=== PATIENT | female | born 1950 | race Caucasian/White ===

== ENCOUNTER 2019-06-07 11:24 | Emergency (ER) | payer MEDICARE, SELFPAY ==
[2019-06-07 11:34] VITALS: BP 121/65; PULSE 75; RESP 16; TEMP 36.8; O2SAT 97
--- NOTE | 2019-06-07 11:53 | ED.GENADULT ---
HPI - General Adult General Chief complaint: Upper Respiratory Infection Stated complaint: Hoarse voice Time Seen by Provider: 06/07/19 11:53 Source: patient and RN notes reviewed Mode of arrival: ambulatory Limitations: no limitations History of Present Illness HPI narrative: 68-year-old female presents with complaints of upper respiratory infection, hoarseness, facial congestion, facial pain, cough, and fatigue for the past 4 days. Flonase and [id number] decongestant with little relief. Increase symptoms over the last 24 hours with , No facial swelling. Intermittent dry cough. Nasal congestion and rhinorrhea. No chest pain or shortness of breath. No exacerbating factors. Denies fever or chills. Denies nausea, vomiting, and abdominal pain. Tolerating po intake well. Remains active. Shameka denies being , history of a hysterectomy. Some parts of this dictation were generated by voice recognition software and may contain typographical and/or grammatical inaccuracies. Related Data Home Medications Medication Instructions Recorded Confirmed estradiol 1 mg PO DAILY 04/17/19 06/07/19 Allergies Allergy/AdvReac Type Severity Reaction Status Date / Time No Known Allergies Allergy Verified 06/07/19 11:35 Review of Systems Review of Systems: Narrative: CONSTITUTIONAL: Complains of fatigue. Denies fever, chills, sweats. EYES: Denies visual changes, redness, discharge. ENT: Complains of rhinorrhea, congestion, facial congestion, facial pressure, hoarseness. Denies sore throat, otalgia. CARDIOVASCULAR: Denies chest pain, palpitations, edema. RESPIRATORY: Denies dyspnea, wheezing. Complains of intermittent dry cough. GASTROINTESTINAL: Denies abdominal pain, nausea, vomiting, diarrhea. GENITOURINARY: Denies dysuria, hematuria, abnormal discharge. SKIN: Denies rash or itching. MUSCULOSKELETAL: Denies acute back pain, joint pain, or myalgia. NEUROLOGIC: Denies numbness or focal weakness. PSYCHIATRIC: Denies anxiety or depression. All systems reviewed & are unremarkable except as noted in HPI and below. 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 Surgical History Surgical History H/O: hysterectomy History of appendectomy History of bowel resection History of laminectomy History of sinus surgery Family History Family History Mother Family history of osteoporosis Patient's mother is in good health Father Family history of alcoholism Family history of cardiomyopathy Family history of diabetes mellitus in first degree relative Patient's father is Social History Social History (Updated 06/07/19 @ 12:36 by MARIYA Godinez) Smoking status: Never smoker Second hand tobacco smoke exposure: No Alcohol intake: current Substance use: never Living arrangements: with family Occupation/Education: retired Gender identity (if verbalized by the patient): Female Comments At time of signature, agree with nurse past medical, surgical, social, and family history. There is no relevant family history pertinent to the presenting complaint. Exam Narrative: Exam Narrative: GENERAL: This is a well-nourished, well-developed patient, in no apparent distress. Talks in full sentences with hoarseness voice and ambulates with steady gait without dyspnea. HEAD: normocephalic, atraumatic. EYES: PERRL. Sclera clear/white. Vision is grossly intact. EARS: External ears normal, auditory canals clear and without drainage, TMs normal without perforation. Hearing grossly intact. NOSE: External nose normal with no obvious nasal discharge, nares with mild redness and enlarged turbinates, clear rhinorrhea. SINUSES: M
== END 2019-06-07 12:16 | disposition home or self-care (01) ==
PROVIDERS: Emergency Provider Nurse Practitioner Family
DX: J00 Acute nasopharyngitis [common cold] (principal); J01.90 Acute sinusitis, unspecified; J04.0 Acute laryngitis; M19.90 Unspecified osteoarthritis, unspecified site
CPT/HCPCS: 99211; G0463

== ENCOUNTER 2021-01-22 12:55 | Outpatient (CLI) | payer MEDICARE, SELFPAY | END 2021-01-22 12:56 | disposition home or self-care (01) | LOC: ANHAUDASC 12:56 | PROVIDERS: PCP Family Medicine; Visit Provider Otolaryngology | DX: H69.83 Other specified disorders of Eustachian tube, bilateral (principal); H90.3 Sensorineural hearing loss, bilateral | CPT/HCPCS: 92557; 92567 ==

== ENCOUNTER 2021-04-10 08:29 | Outpatient (CLI) | payer MEDICARE, SELFPAY ==
--- NOTE | 2021-04-10 08:33 | ECG_ITS ---
Measurements Intervals [place] Rate: 65 P: 48 ND: 155 QRS: -13 QRSD: 84 T: 77 QT: 385 QTc: 402 Interpretive Statements SINUS RHYTHM VENTRICULAR PREMATURE COMPLEX POOR R WAVE PROGRESSION, CONSIDER ANTERIOR INFARCT INFERIOR INFARCT, AGE INDETERMINATE BORDERLINE ST-T WAVE ABNORMALITY- HIGH LATERAL LEADS ABNORMAL ECG Electronically Signed On 04-10-2021 9:29:30 WAFER MACHINE OPERATOR by Conor Chance D.O.
== END 2021-04-10 08:30 | disposition home or self-care (01) ==
LOC: ANHSURGERY 08:33
PROVIDERS: PCP Family Medicine; Visit Provider Podiatrist Foot & Ankle Surgery
DX: E78.00 Pure hypercholesterolemia, unspecified (principal); Z01.818 Encounter for other preprocedural examination; R94.31 Abnormal electrocardiogram [ECG] [EKG]
CPT/HCPCS: 93005

== ENCOUNTER 2021-04-11 00:15 | Day surgery (SDC) | payer MEDICARE, SELFPAY ==
[2021-04-08 15:03] VITALS: BMI 25.7
--- NOTE | 2021-04-08 15:30 | PC.NURSE ---
Report to the Outpatient Waiting Room, entrance under the green pavilion located off [facility], at time __7:00AM on date _04/11/21____. OR Time: __9:00AM . - You and your visitor will be asked a series of questions to screen for COVID 19 for your protection. - A mask is required within the hospital. - Only one visitor is allowed at this time. Patient visitors will be guided where to wait when not with patient. Preoperative COVID Testing Requirements: No COVID Test needed if: (proof is required; if not received patient will have Rapid Test prior to entry) - Patient has received COVID Vaccine at least 14 days prior to procedure date or - Patient has positive COVID test result within last 90 days of surgery date. COVID Test needed if above criteria is not met If not COVID vaccinated a COVID test must be conducted within 72 hours of surgery and patient is asked to isolate self from time of testing until procedure. You will go to the [employer] [facility] Testing Site for your COVID testing. The [employer] [facility] Testing site is located at the corner of [address] [facility]. You will only be called if COVID results are positive and your surgeon may reschedule your elective surgery date. Patients may have clear liquids (water, carbonated beverages, clear teas, apple juice) until 3 hours prior to surgery with a maximum of 20 ounces. - No food from midnight until time of surgery - Infants may have breast milk until 4 hours before surgery, formula 6 hours prior to surgery. - Children will be allowed to drink immediately following surgery. If applicable, please bring a bottle or sippy cup to assist with drinking. Juice, water, soda, and popsicles are readily available. For infants on formula, please bring formula the day of surgery. Pacifiers are allowed. Take the following medications with a SIP of water the morning of surgery: ___ALPRAZOLAM NEEDED Medications to discontinue per physician NONE Date to take last dose Please no make-up, nail lao, hairspray, perfume, deodorant, or body powder the day of surgery. No jewelry (including any body piercings) or valuables the day of surgery, leave them at home. Please take a shower or bath the night before, or the morning of, surgery with an antibacterial soap. Wear comfortable, loose fitting clothing. Children are encouraged to wear pajamas. - Jewelry must be removed prior to entering the operating room. Rings and piercings that are not removed may be cut off. - The hospital will not accept responsibility for valuables. - Please leave all valuables, including medications, at home the day of surgery. If you are going home after surgery, a licensed [facility] driver must drive you home. - NO public transportation without another adult. - We recommend that an adult stay with you for 24 hours following discharge. - We also recommend that you do not drive, make important decision, drink alcoholic beverages, or take any drugs that were not prescribed by your health care provider for at least 24 hours after your discharge time. For Pediatric surgeries, we recommend two adults accompany the child home (only one inside the building at this time). Follow any additional instructions given to you from your surgeon. Telephone instructions given to __PATIENT and asked if any additional questions and then verbalized understanding. Patient advised to call surgeon office or pre surgery nurse liaison [phone] if any additional questions.
[2021-04-11] VITALS (9 sets, daily range): BP systolic 87–134; BP diastolic 53–75; PULSE 56–79; RESP 11–18; TEMP 36.1–37.2; O2SAT 98–100
--- NOTE | ~2021-04-11 | XR_ITS ---
EXAMINATION: XR surgery orthopedic DATE: 04/11/2021 09:28 INDICATION: Right foot arthrodesis TECHNIQUE: Dorsal plantar and lateral fluoroscopic images of the right forefoot were obtained during procedure performed by Dr. Suero. Radiologist was not present for the imaging or procedure. The am ount of fluoroscopy time used during this procedure was 0.1 minutes. COMPARISON: None. FINDINGS: First metatarsophalangeal arthrodesis with dorsal plate and screw fixation which is in near -anatomic alignment. No fracture. Remaining profiled joint spaces in the forefoot are unremarkable. E xpected small amount of gas in the soft tissues at the operative bed. IMPRESSION: 1. Expected appearance during right first metatarsophalangeal arthrodesis with dorsal plate and screw fixation. Reviewed, dictated and finalized at location A. REPAIRER
--- NOTE | 2021-04-11 07:00 | P.PNAN_ITS ---
Anes - Eval Pre Procedure Procedure: Operation Date: 04/11/21 09:00 Proposed Procedures p Arthrodesis of First Metatarsal Phalangeal Joint Right Foot - Tayo Suero JR, MD Date/Time: 04/11/21 07:00 Pre Op Diagnosis: arthritis 1st mpj right foot Patient Data Age: 70 Gender: F Height: 1.63 m Weight: 68 kg Allergies Allergy/AdvReac Type Severity Reaction Status Date / Time No Known Allergies Allergy Verified 04/08/21 15:00 Home Medications Medication Instructions Recorded Confirmed Type estradiol 0.5 mg PO DAILY 04/17/19 04/08/21 History alprazolam 0.25 mg tablet 0.25 mg PO DAILY PRN 05/27/20 04/08/21 History cholecalciferol (vitamin D3) 50 50 mcg PO DAILY 11/28/20 04/08/21 History mcg (2,000 unit) capsule Patient hx anesthesia problems: none Family hx anesthesia problems: none Results Review: All pre-operative results and documents have been reviewed as part of the pre-operative evaluation. [facility] Past Medical History Medical History Acute upper respiratory infection Arthritis Back pain Diverticulitis History of benign meningioma of brain Otitis media Subungual malignant melanoma Surgical History Surgical History H/O: hysterectomy History of appendectomy History of bowel resection History of laminectomy History of sinus surgery Family History Family History Mother Family history of osteoporosis Patient's mother is in good health Father Family history of alcoholism Family history of cardiomyopathy Family history of diabetes mellitus in first degree relative Patient's father is Social History Social History Second hand tobacco smoke exposure: No Alcohol intake: current Drinks per week: 3 Substance use: never Living arrangements: with family Additional living arrangements comments: GABY Gender identity (if verbalized by the patient): Female Spiritual care concerns: No Exam Day of Procedure 04/11/21 07:00 Patient weight: overweight
--- NOTE | 2021-04-11 07:11 | WPDANESEFPP ---
Anes - Eval Final PreProcedure Day of Procedure 04/11/21 07:11 Patient weight: overweight Heart: regular rate and rhythm Lungs: clear to auscultation Airway: Mallampati scale class II Neurological: alert and oriented Last oral intake: >/= 8 hours ASA classification: II Emergent: no Anesthetic plan: proceed Anesthesia type and monitoring: general LMA and standard monitoring Results Review: All pre-operative results and documents have been reviewed as part of the pre-operative evaluation. Informed Consent: The patient's anesthetic plan and its attendant risks and benefits were discussed with the patient/family/POA. Questions were solicited and answers provided to the satisfaction of the patient/family/POA.
--- NOTE | 2021-04-11 07:19 | WPDHPUPDATE1 ---
History and Physical Update Update Date/Time: 04/11/21 07:19 History and Physical has been reviewed, including an updated exam of the patient. There are NO changes in the patient's condition. Risks, benefits, and alternatives have been discussed and questions answered. Patient agrees to proceed with procedure.
[2021-04-11] MEDS: LACTATED RINGERS 1,000 ML 30 ML IV CONT (07:49)
[2021-04-11] MEDS: ceFAZolin 2 GM/D5W 50 ML 2 GM/50 ML BAG IVPB (08:24)
[2021-04-11] MEDS: ONDANSETRON INJ 4 MG/2 ML VIAL IV PUSH (09:44)
--- NOTE | 2021-04-11 09:44 | WPDANESPNB ---
Anes - Peripheral Nerve Block Date/Time: 04/11/21 09:44 I have discussed with the patient/family/POA the placement of a peripheral nerve block for post-operative pain management, including associated risks, benefits, complications, and side effects. Alternative methods of post-operative analgesia were detailed. Questions were solicited and answers provided to the satisfaction of the patient/family/POA. Time-Out: A pre-procedural Time-Out was completed immediately before starting the procedure and confirmed: Patient Identification, Site, Procedure, Patient Position and the Availability of Requisite Equipment. Clinical Indications: Acute post-operative pain management requested by the operative surgeon. Nerve Block Insertion Note Anes-nerve block: posterior fossa sciatic right and other (saphenous) Patient position: supine Skin prep: chlorhexidine Needle: 22 gauge, stimulating, insulated echogenic needle. Needle length: 80 mm Technique: nerve stimulation lost at (mA) (0.35) Injectate: bupivacaine 0.5% with epi 5 mcg/ml (no epi, 23 cc sciatic and 7 cc saphenous) Observations: tolerated well Complications: none Procedure start time:: 814 Procedure end time:: 820
[2021-04-11] MEDS: fentaNYL CITRATE INJ (*CRX) 100 MCG/2 ML VIAL 25 MCG IV PUSH ×5 (09:50→10:45)
--- NOTE | 2021-04-11 09:58 | W.PM.PROC2 ---
Procedure Note - Detailed Date of Procedure 04/11/21 Pre-op Diagnosis Arthritis 1st mpj right foot Post-op Diagnosis same Procedure Performed Arthrodesis of the first metatarsal phalangeal joint right foot Surgeon Tayo Suero JR, AVANI Anesthesia general and regional Indications Right forefoot pain Description of Procedure PROCEDURE IN DETAIL: Under mild sedation, the patient was brought into the operating room, placed on the operating table in supine position. A pneumatic ankle tourniquet was placed about the patient's ipsilateral ankle. Following general anesthesia and a previous popliteal fossa block,the foot was then scrubbed, prepped, and draped in the usual aseptic manner. An Esmarch bandage was then used to exsanguinate the patient's foot and the pneumatic ankle tourniquet was then inflated. Surgery began in the following manner: Attention was directed to the dorsal aspect of the 1st metatarsophalangeal joint where there was a large subcutaneous prominence noted along the dorsomedial aspect of the joint. The incision was made starting along the central shaft of the 1st metatarsal and extending just proximal to the interphalangeal joint of the hallux. The incision was continued deep down through the subcutaneous tissues using sharp and blunt dissection. All bleeders were cauterized as necessary. At this point, the dissection was continued down to the level of the periosteum and capsular structures overlying the 1st metatarsophalangeal joint. A full length periosteum and capsular incision was made just medial to the extensor hallucis longus tendon. The periosteum and capsular structures were freed from the base of the proximal phalanx as well as the distal 1st metatarsal. At this point, the 1st metatarsophalangeal joint was identified. There was almost complete loss of articular cartilage to the head of the 1st metatarsal as well as the base of the proximal phalanx. There was significant broadening and hypertrophy of the 1st metatarsophalangeal joint with several loose bodies present. Utilizing a sagittal bone saw, the hypertrophied 1st metatarsal was resected dorsally, medially, and laterally. A power bur was used to make sure that there were no rough edges and also to further debride the hypertrophic 1st metatarsal. Next, a rongeur was used to resect all hypertrophic base of the proximal phalanx. At this point, the reamer system for the [employer] system was used to denude the degenerative cartilage from the head of the 1st metatarsal as well as the base of the proximal phalanx. The cartilage and subchondral bone were fully debrided utilizing the reamer system until healthy bleeding bone was noted. Next, a 2-0 drill bit was used to further fenestrate the head of the 1st metatarsal as well as the base of the proximal phalanx in order to allow fusion across the 1st metatarsophalangeal joint. Next, a 0.045 inch K-wire was driven from the medial aspect of the base of the proximal phalanx into the head of the 1st metatarsal in order to serve as temporary fixation. A large steel plate was used to make sure that the hallux was in a rectus position both in the sagittal plane as well as the frontal and transverse plane. Excellent position of the hallux was noted. Next, a CrossCHECK plate was placed atop the 1st metatarsophalangeal joint held in position with [place] wires. Utilizing standard principles and techniques, the 2 distal drill holes were drilled and two 2.7mm mm fully-threaded locking screws were driven from dorsal to plantar holding the distal aspect of the plate intact. At this point, a 3.5mm lag screw was driven from dorsal distal to proximal plantar across the 1st metatarsophalangeal joint through the plate system with excellent compression noted after careful removal of the olive wire and temporary fixation from the 1st metatarsophalangeal joint. Next, 2 proximal drill holes were drilled from dorsal t
[2021-04-11] MEDS: oxyCODONE HCL (*CRX) 5 MG TAB IR PO (11:27)
== END 2021-04-11 12:06 | disposition home or self-care (01) ==
PROVIDERS: PCP Family Medicine; Visit Provider Podiatrist Foot & Ankle Surgery
PROC: (CPT 28750; principal; 2021-04-11 09:00)
DX: M19.071 Primary osteoarthritis, right ankle and foot (principal); M20.21 Hallux rigidus, right foot; G89.18 Other acute postprocedural pain; K57.92 Diverticulitis of intestine, part unspecified, without perforation or abscess without bleeding
CPT/HCPCS: 28750; 64450; 64445; 93005; A9270; C1713; J0690; J2250; J2370; J2405; J2704; J3010; J7120

== ENCOUNTER 2021-07-27 13:28 | Emergency (ER) | payer MEDICARE, SELFPAY ==
[2021-07-27 13:38] VITALS: BP 107/55; PULSE 63; RESP 16; TEMP 35.6; O2SAT 100
--- NOTE | 2021-07-27 13:39 | ED.URI ---
HPI - URI/Sore Throat General Chief Complaint: Upper Respiratory Infection Stated Complaint: Sinus Infection Time Seen by Provider: 07/27/21 13:40 Source: patient, family, RN notes reviewed and old records reviewed Mode of arrival: ambulatory Limitations: no limitations History of Present Illness HPI Narrative: 70-year-old female presents to the [facility] with complaints of sinus pain, pressure, ear pressure for at least 3 days. No treatment prior to arrival. Patient states she has a history of chronic sinus issues. Denies fevers. Denies sore throat, chest pain, abdominal pain. MD elicited complaint: nasal congestion and sinus pain Related Data Home Medications Medication Instructions Recorded Confirmed estradiol 0.5 mg PO DAILY 04/17/19 07/27/21 alprazolam 0.25 mg tablet 0.25 mg PO DAILY PRN 05/27/20 07/27/21 cholecalciferol (vitamin D3) 50 50 mcg PO DAILY 11/28/20 07/27/21 mcg (2,000 unit) capsule ezetimibe 10 mg PO DAILY 07/27/21 07/27/21 Allergies Allergy/AdvReac Type Severity Reaction Status Date / Time No Known Allergies Allergy Verified 07/27/21 13:36 Review of Systems Review of Systems: All systems reviewed & are unremarkable except as noted in HPI and below Constitutional: Constitutional: Reports no additional constitutional complaints, Denies chills, Denies fever(s) and Denies headache(s) Eyes: Eyes: Reports no additional eye complaints ENT: Reports as per HPI, Denies vertigo, Denies dizziness, Reports otalgia, Denies headache(s), Denies lip swelling, Reports nasal congestion, Reports nasal discharge, Reports post nasal drip, Reports sinus pain, Reports sinus pressure, Denies sore throat and Denies throat swelling Cardiovascular: Cardiovascular: Reports no additional cardiovascular complaints, Denies chest pain, Denies syncope, Denies rapid heart rate and Denies dyspnea Respiratory: Respiratory: Reports no additional respiratory complaints, Denies cough, Denies dyspnea and Denies wheezing Gastrointestinal: Gastrointestinal: Reports no additional gastrointestinal complaints, Denies abdominal pain, Denies diarrhea, Denies nausea and Denies vomiting Musculoskeletal: Musculoskeletal: Reports no additional musculoskeletal complaints and Denies numbness Integumentary/Breasts: Skin/Breast: Reports system reviewed and no additional complaints, except as docu Neurologic: Reports system reviewed and no additional complaints, except as documented, Denies vertigo, Denies dizziness, Denies syncope, Denies headache(s), Denies focal weakness and Denies numbness Psychiatric: Psychiatric: Reports no additional psychiatric complaints, Denies as per HPI, Denies anxiety, Denies depression, Denies homicidal ideation and Denies suicidal ideation Allergic/Immunologic: Allergic/Immunologic: Reports no additional allergic/immunologic complaints PMFSH Past Medical History Medical History Acute upper respiratory infection Arthritis Back pain Diverticulitis History of benign meningioma of brain Otitis media Subungual malignant melanoma Surgical History Surgical History H/O: hysterectomy History of appendectomy History of bowel resection History of laminectomy History of sinus surgery Family History Family History Mother Family history of osteoporosis Patient's mother is in good health Father Family history of alcoholism Family history of cardiomyopathy Family history of diabetes mellitus in first degree relative Patient's father is Social History Social History Second hand tobacco smoke exposure: No Alcohol intake: current Drinks per week: 3 Substance use: never Additional living arrangements comments: GABY Gender identity (if verbalized by the patient): Female
== END 2021-07-27 14:00 | disposition home or self-care (01) ==
PROVIDERS: Emergency Provider Nurse Practitioner; PCP Family Medicine
DX: J32.9 Chronic sinusitis, unspecified (principal)
CPT/HCPCS: 99213; G0463

== ENCOUNTER 2022-09-11 06:17 | Day surgery (SDC) | payer MEDICARE, SELFPAY ==
[2022-09-01 14:35] VITALS: BMI 24.9
[2022-09-04 08:35] VITALS: BMI 25.7
--- NOTE | ~2022-09-11 | XR_ITS ---
EXAMINATION: XR surgery orthopedic DATE: 09/11/2022 7:30 CDT INDICATION: RIGHT FOOT HARDWARE REMOVAL . TECHNIQUE: 1 fluoroscopic image of the right foot were obtained during right hip hardware removal per formed by the surgeon. I was not present in the operating room. Fluoroscopy exposure time was 9 secon ds. Dose 35.52 mrad. COMPARISON: 04/11/2021 FINDINGS: Interval hardware removal. No radiopaque foreign body. IMPRESSION: Fluoroscopic documentation of right foot hardware removal. Please refer to the operative note for com plete procedural details . Reviewed, dictated and finalized at location K. IMPRESSION: Fluoroscopic documentation of right foot hardware removal. Please refer to the operative note for complete procedural details .
[2022-09-11 06:43] VITALS: BP 101/61; PULSE 78; RESP 18; TEMP 37.1; O2SAT 99
[2022-09-11] MEDS: LACTATED RINGERS 1,000 ML 30 ML IV CONT (07:05)
--- NOTE | 2022-09-11 07:08 | WPDHPUPDATE1 ---
History and Physical Update Update Date/Time: 09/11/22 07:08 History and Physical has been reviewed, including an updated exam of the patient. There are NO changes in the patient's condition. Risks, benefits, and alternatives have been discussed and questions answered. Patient agrees to proceed with procedure.
--- NOTE | 2022-09-11 07:22 | WPDANESEPPF ---
Anes - Initial Pre Proc Eval Procedure: Operation Date: 09/11/22 07:40 Proposed Procedures p Removal of Deep Orthopedic Hardware Right Foot - Tayo Suero JR, MD Date/Time: 09/11/22 07:22 Surgeon: Tayo Suero JR, MD Pre Op Diagnosis: Painfull orthopedic hardware right foot Patient Data Age: 71 Gender: F Height: 1.63 m Weight: 69.8 kg Last Vital Signs Temp 37.1 C 09/11/22 06:43 Pulse 78 09/11/22 06:43 Resp 18 09/11/22 06:43 BP 101/61 09/11/22 06:43 Pulse Ox 99 09/11/22 06:43 O2 Del Method Room Air 09/11/22 06:43 Allergies Allergy/AdvReac Type Severity Reaction Status Date / Time No Known Allergies Allergy Verified 09/11/22 06:45 Home Medications Medication Instructions Recorded Confirmed Type estradiol 1 mg tablet 0.5 mg PO DAILY 04/17/19 09/11/22 History alprazolam 0.25 mg tablet 0.25 mg PO DAILY PRN Anxiety 05/27/20 09/11/22 History cholecalciferol (vitamin D3) 50 50 mcg PO DAILY 11/28/20 09/11/22 History mcg (2,000 unit) capsule calcium 1 tablet PO DAILY 09/04/22 09/11/22 History carbonate,citrate-magnesium oxide 200 mg calcium-50 mg tablet meloxicam 7.5 mg tablet 7.5 mg PO DAILY PRN arthritis 09/04/22 09/04/22 History multivit with minerals-iron 18 1 tablet PO DAILY 09/04/22 09/11/22 History mg-folic ac 400 mcg-vit K 25 mcg tablet (Adults Multivitamin) Patient hx anesthesia problems: post op nausea/vomiting Family hx anesthesia problems: none Results Review: All pre-operative results and documents have been reviewed as part of the pre-operative evaluation. 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 Surgical History Surgical History H/O: hysterectomy History of appendectomy History of bowel resection History of laminectomy History of sinus surgery Family History Family History Mother Family history of osteoporosis Patient's mother is in good health Father Family history of alcoholism Family history of cardiomyopathy Family history of diabetes mellitus in first degree relative Patient's father is Social History Social History Smoking status: Never smoker Second hand tobacco smoke exposure: No Alcohol intake: current Drinks per week: 3 Substance use: never Substance use type: does not use Living arrangements: with family Additional living arrangements comments: [facility] Occupation/Education: retired Gender identity (if verbalized by the patient): Female Spiritual care concerns: No Anes - Eval Final PreProcedure Day of Procedure 09/11/22 07:22 Patient weight: normal Heart: regular rate and rhythm Lungs: clear to auscultation Airway: Mallampati scale class II Neurological: alert and oriented Last oral intake: >/= 8 hours ASA classification: II Emergent: no Anesthetic plan: proceed Anesthesia type and monitoring: general GIVS and standard monitoring Results Review: All pre-operative results and documents have been reviewed as part of the pre-operative evaluation. Informed Consent: The patient's anesthetic plan and its attendant risks and benefits were discussed with the patient/family/POA. Questions were solicited and answers provided to the satisfaction of the patient/family/POA.
[2022-09-11] MEDS: ceFAZolin SODIUM 2 GM/20 ML SW SYRINGE IV PUSH (07:40)
[2022-09-11] MEDS: LIDOCAINE HCL 2% LOCAL INJ 20 ML VIAL 10 ML INFILTRATE (08:18)
[2022-09-11 08:22] VITALS: BP 91/49; PULSE 65; RESP 14; TEMP 36.1; O2SAT 98
--- NOTE | 2022-09-11 08:29 | WPDANESPN ---
Anes - Prog Note Post-Op Date/Time: 09/11/22 08:29 Cardiovascular status: normal Respiratory status: normal Airway patency: baseline Mental status: baseline Post-Op hydration status: normal Vital Signs: Last Vital Signs Temp 37.1 C 09/11/22 06:43 Pulse 78 09/11/22 06:43 Resp 18 09/11/22 06:43 BP 101/61 09/11/22 06:43 Pulse Ox 99 09/11/22 06:43 O2 Del Method Room Air 09/11/22 06:43 Pain Score (VAS): 0 Patient Feedback: Patient satisfied with anesthetic care.
--- NOTE | 2022-09-11 08:30 | P.OP_ITS ---
Procedure Note - Detailed Date of Procedure 09/11/22 Pre-op Diagnosis Painfull orthopedic hardware right foot Post-op Diagnosis Same Procedure Performed Removal of deep orthopedic hardware right foot Surgeon Tayo Suero JR, DPM Anesthesia MAC and Local Indications Painful hardware right foot Findings Some degree of miller discoloration to the soft tissue surrounding the plate system Description of Procedure Under mild sedation, the patient was brought in to the operating room, placed on the operating table in the supine position. A pneumatic ankle tourniquet was placed about the patient's leg. Following monitored anesthesia care, local anesthesia was obtained about the patients ankle utilizing 20 mL of a 1:1 mixture of 2% Lidocaine plain and 0.5% Marcaine plain. The foot was then scrubbed, prepped, and draped in the usual aseptic manner. An Esmarch bandage was then used to exsanguinate the patient's foot and the pneumatic ankle tourniquet was then inflated. An incision was made along the dorsal aspect of the first metatarsal phalangeal joint right foot. Dissection was continued to the subcutaneous tissues all bleeders were cauterized as necessary. A full length periosteal and capsular i ncision was made overlying the dorsal aspect of the first metatarsal phalangeal joint arthrodesis site. The dorsal plate and screws were removed in toto. Fluoroscopy was used to confirm complete hardware removal. There was significant scar tissue overlying the dorsum of the joint. This hypertrophic scar tissue was excised. 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 This was debrided and flushed thorougly. There was adequate union of the lateral 80 to 90 percent of the arthrodesis site. The wound site was flushed with sterile saline. Next, the periosteum and capsule was reapproximated with 4-0 Vicryl, The subcutaneous tissue was reapproximated with 4-0 Vicryl and last the skin was reapproximated and coapted utilizing 4-0 Monocryl in a running subcuticular suture fashion technique. Upon completion of the procedure, the incision was dressed with Steri strips Adaptic, 4x4s, Kerlix, and Coban. The pneumatic calf tourniquet was then deflated and a prompt hyperemic response was noted to all digits of the foot. The Cam walker boot will be applied in PACU. The patient did very well with the procedure and the anesthesia. The patient was transferred to the recovery room with vital signs stable and vascular status intact to all toes of the foot. Following a period of postoperative monitoring, the patient will be discharged home on the following written and oral postoperative instructions: 1. The patient should keep the dressing clean, dry, and intact. Use a cast protector bag with showers. 2. The patient will be protected weightbearing with CAM boot. 3. Patient should ice and elevate the affected lower extremity while at rest. 4. The patient is to contact Dr. Suero for all postop care and if any problems arise. 5. Prescriptions were written for Percocet 5/325 dispensed 40 to be taken 1 p.o. q.4-6 hours as needed for severe pain. Estimated Blood Loss -1.0 Packing No Pathology None sent Complications No immediate complications Condition Stable Disposition Same day
[2022-09-11 08:32] VITALS: BP 94/57; PULSE 65; RESP 16; O2SAT 99
[2022-09-11 09:02] VITALS: BP 117/69; PULSE 60; RESP 16; O2SAT 100
[2022-09-11] MEDS: oxyCODONE HCL (*CRX) 5 MG TAB IR PO (09:24)
== END 2022-09-11 09:50 | disposition home or self-care (01) ==
PROVIDERS: Visit Provider Podiatrist Foot & Ankle Surgery
PROC: (CPT 20680; principal; 2022-09-11 07:30)
DX: T84.418A Breakdown (mechanical) of other internal orthopedic devices, implants and grafts, initial encounter (principal)
CPT/HCPCS: 20680; 99199

== ENCOUNTER 2023-02-04 01:57 | Day surgery (SDC) | payer MEDICARE, SELFPAY ==
[2023-01-25 12:17] VITALS: BMI 25.8
--- NOTE | 2023-02-02 10:07 | SUR.PREOP ---
Patient called regarding upcoming procedure. Message left on patient's voicemail regarding preop instructions, appointment times, and procedure prep.
[2023-02-04 08:50] VITALS: BP 108/67; PULSE 83; RESP 16; TEMP 36.9; O2SAT 99; BMI 26.2
[2023-02-04] MEDS: LACTATED RINGERS 1,000 ML 150 ML IV CONT (09:18)
--- NOTE | 2023-02-04 09:23 | PM.HPGS ---
History of Present Illness History of Present Illness Consent: Risks, benefits, and alternatives have been discussed and questions answered. Patient agrees to proceed with procedure. Chief complaint: Family history of colon cancer Narrative: Shameka Kelsey is a 72 year old female presents for screening colonoscopy. Patient's father had colon cancer. Patient reports that her own weight appetite and bowel movements are normal. Patient denies abdominal pain. She has had no bleeding. She presents today for screening exam previous exam in 2018 was unremarkable. Review of Systems Review of Systems: Review of systems noncontributory. 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 Surgical History Surgical History H/O: hysterectomy History of appendectomy History of bowel resection History of laminectomy History of sinus surgery Family History Family History Mother Family history of osteoporosis Patient's mother is in good health Father Family history of alcoholism Family history of cardiomyopathy Family history of diabetes mellitus in first degree relative Patient's father is Social History Social History Smoking status: Never smoker Second hand tobacco smoke exposure: No Alcohol intake: current Drinks per week: 2 Substance use: never Substance use type: does not use Living arrangements: with family Additional living arrangements comments: [facility] Occupation/Education: retired Gender identity (if verbalized by the patient): Female Spiritual care concerns: No Meds Home Medications and Allergies Home Medications Medication Instructions Recorded Confirmed Type estradiol 1 mg tablet 0.5 mg PO DAILY 04/17/19 02/04/23 History alprazolam 0.25 mg tablet 0.25 mg PO DAILY PRN Anxiety 05/27/20 02/04/23 History cholecalciferol (vitamin D3) 50 50 mcg PO DAILY 11/28/20 02/04/23 History mcg (2,000 unit) capsule multivit with minerals-iron 18 1 tablet PO DAILY 09/04/22 02/04/23 History mg-folic ac 400 mcg-vit K 25 mcg tablet (Adults Multivitamin) Allergies Allergy/AdvReac Type Severity Reaction Status Date / Time No Known Allergies Allergy Verified 02/04/23 09:00 Vital Signs Vital Signs - 24 hr 02/04/23 08:50 Temperature 98.4 F Pulse Rate 83 Respiratory Rate 16 Blood Pressure 108/67 Pulse Oximetry 99 Oxygen Delivery Room Air Exam Narrative: Physical exam reveals patient to be alert. Vital signs stable. HEENT exam is unremarkable. Patient is anicteric. Lungs are clear to auscultation and percussion. Heart is without murmur or extra sounds. Abdomen bowel sounds are present soft nontender with no hepatosplenomegaly. Digital external rectal exam normal. Assessment and Plan Assessment and plan (1) Family history of colon cancer in father: Code(s): Z80.0 - Family history of malignant neoplasm of digestive organs Status: Acute Assessment and Plan: Patient's father had colon cancer. For this reason screening colonoscopy advised now and at 5 year intervals.
--- NOTE | 2023-02-04 10:15 | WPDANESEPPF ---
Anes - Initial Pre Proc Eval Procedure: Operation Date: 02/04/23 10:00 Proposed Procedures p Colonoscopy - Steve Candelario MD Date/Time: 02/04/23 10:15 Surgeon: Steve Candelario MD Pre Op Diagnosis: Family history of colon cancer Patient Data Age: 72 Gender: F Height: 1.63 m Weight: 69.4 kg Last Vital Signs Temp 36.9 C 02/04/23 08:50 Pulse 83 02/04/23 08:50 Resp 16 02/04/23 08:50 BP 108/67 02/04/23 08:50 Pulse Ox 99 02/04/23 08:50 O2 Del Method Room Air 02/04/23 08:50 Allergies Allergy/AdvReac Type Severity Reaction Status Date / Time No Known Allergies Allergy Verified 02/04/23 09:00 Home Medications Medication Instructions Recorded Confirmed Type estradiol 1 mg tablet 0.5 mg PO DAILY 04/17/19 02/04/23 History alprazolam 0.25 mg tablet 0.25 mg PO DAILY PRN Anxiety 05/27/20 02/04/23 History cholecalciferol (vitamin D3) 50 50 mcg PO DAILY 11/28/20 02/04/23 History mcg (2,000 unit) capsule multivit with minerals-iron 18 1 tablet PO DAILY 09/04/22 02/04/23 History mg-folic ac 400 mcg-vit K 25 mcg tablet (Adults Multivitamin) Patient hx anesthesia problems: none Family hx anesthesia problems: none Results Review: All pre-operative results and documents have been reviewed as part of the pre-operative evaluation. 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 Surgical History Surgical History H/O: hysterectomy History of appendectomy History of bowel resection History of laminectomy History of sinus surgery Family History Family History Mother Family history of osteoporosis Patient's mother is in good health Father Family history of alcoholism Family history of cardiomyopathy Family history of diabetes mellitus in first degree relative Patient's father is Social History Social History Smoking status: Never smoker Second hand tobacco smoke exposure: No Alcohol intake: current Drinks per week: 2 Substance use: never Substance use type: does not use Living arrangements: with family Additional living arrangements comments: [facility] Occupation/Education: retired Gender identity (if verbalized by the patient): Female Spiritual care concerns: No Anes - Eval Final PreProcedure Day of Procedure 02/04/23 10:15 Patient weight: normal Heart: regular rate and rhythm Lungs: clear to auscultation Airway: Mallampati scale class II Neurological: alert and oriented Last oral intake: >/= 8 hours ASA classification: II Emergent: no Anesthetic plan: proceed Anesthesia type and monitoring: general GIVS and standard monitoring Results Review: All pre-operative results and documents have been reviewed as part of the pre-operative evaluation. Informed Consent: The patient's anesthetic plan and its attendant risks and benefits were discussed with the patient/family/POA. Questions were solicited and answers provided to the satisfaction of the patient/family/POA.
[2023-02-04] MEDS: SIMETHICONE ORAL SUSPENSION 20 MG/0.3 ML 30 ML BOTTLE 0.6 ML IRRIGATION (10:48)
[2023-02-04 10:59] VITALS: BP 93/48; PULSE 66; RESP 18; O2SAT 96
[2023-02-04 11:09] VITALS: BP 106/57; PULSE 58; RESP 18; O2SAT 100
[2023-02-04 11:19] VITALS: BP 112/64; PULSE 64; RESP 18; O2SAT 100
--- NOTE | 2023-02-04 11:52 | SUR.PHASEII ---
Patient's checkbook found in bathroom. Patient called to let them know we found it. Message left on patient's voicemail.
== END 2023-02-04 11:30 | disposition home or self-care (01) ==
PROVIDERS: PCP Family Medicine; Visit Provider Internal Medicine Gastroenterology
PROC: 0DJD8ZZ Inspection of Lower Intestinal Tract, Via Natural or Artificial Opening Endoscopic (ICD-10-PCS; CPT 45378; principal; 2023-02-04 10:00)
DX: Z12.11 Encounter for screening for malignant neoplasm of colon (principal); K64.8 Other hemorrhoids; K57.30 Diverticulosis of large intestine without perforation or abscess without bleeding; Z86.011 Personal history of benign neoplasm of the brain; Z80.0 Family history of malignant neoplasm of digestive organs; Z85.820 Personal history of malignant melanoma of skin
CPT/HCPCS: G0105; J2704; J7120

== ENCOUNTER 2024-01-04 12:12 | Outpatient (CLI) | payer MEDICARE, SELFPAY ==
[2024-01-04 13:04] LABS: Basophils Absolute Auto 0.1 K/mm3 (0.0-0.1); Basophils Percent Auto 0.9 % (0.2-1.2); Eosinophils Absolute Auto 0.1 K/mm3 (0-0.3); Eosinophils Percent Auto 1.3 % (0-4.4); Hematocrit 43.4 % (37.0-47.0); Hemoglobin 13.7 g/dL (12.0-15.0); Immature Granulocyte Absolute 0.02 K/mm3 (0.00-0.031); Immature Granulocyte Percent A 0.4 % (0-0.5); Lymphocytes Absolute Auto 1.74 K/mm3 (0.9-3.2); Lymphocytes Percent Auto 32.8 % (18.3-44.2); Mean Corpuscular HGB Conc 31.6 g/dl (32-36); Mean Platelet Volume 9.5 fl (7.4-10.4); Monocytes Absolute Auto 0.5 K/mm3 (0.1-0.6); Monocytes Percent Auto 9.2 % (2.6-8.5); Neutrophils Absolute Auto 2.9 K/mm3 (1.3-6.7); Neutrophils Percent Auto 55.4 % (45.5-73.1); Platelet Count Result 264 k/mm3 (150-375); Red Blood Count 4.57 M/mm3 (4.2-5.4); Red Cell Distribution Width 14.6 % (11.5-14.5); White Blood Count 5.3 K/mm3 (4.5-10.0)
[2024-01-04 13:15] LABS: Alanine Aminotransferase 16 U/L (6-35); Albumin Level 4.3 g/dL (3.5-5.1); Alkaline Phosphatase 54 U/L (38-126); Anion Gap 6 mmol/L (4-12); Aspartate Amino Transferase 25 U/L (14-36); Bilirubin,Total 0.5 mg/dL (0.2-1.3); Blood Urea Nitrogen 19 mg/dL (7-17); Calcium 9.3 mg/dL (8.4-10.2); Carbon Dioxide 29 mmol/L (22-30); Chloride 105 mmol/L (98-107); Cholesterol 250 mg/dL (0-200); Estimated Glomerular Filt Rate > 60; Glucose 88 mg/dL (65-110); HDL Direct 83 mg/dL; Potassium 4.3 mmol/L (3.4-5.0); Sodium 140 mmol/L (137-145); Triglycerides 162 mg/dL (<150)
[2024-01-04 13:19] LABS: Hemoglobin A1C 5.6 % (<5.7)
[2024-01-04 13:26] LABS: LDL Cholesterol Direct 109 mg/dL
[2024-01-04 13:46] LABS: Iron 95 ug/dL (37-170)
[2024-01-04 13:59] LABS: Percent Iron Saturation 29 % (20-50)
[2024-01-04 14:02] LABS: Vitamin D 25 Hydroxy 53.9 ng/mL
[2024-01-04 14:21] LABS: Folic Acid 10.3 ng/mL (2.76->20)
== END 2024-01-04 12:13 | disposition home or self-care (01) ==
LOC: ANHLAB 12:22
PROVIDERS: PCP Family Medicine; Visit Provider Student in an Organized Health Care Education/Training Program
DX: E78.5 Hyperlipidemia, unspecified (principal); M25.511 Pain in right shoulder; R53.83 Other fatigue; R20.0 Anesthesia of skin; R20.2 Paresthesia of skin; Z13.1 Encounter for screening for diabetes mellitus
CPT/HCPCS: 36415; 80053; 80061; 82306; 82607; 82728; 82746; 83036; 83540; 83550; 84443; 85025

== ENCOUNTER 2024-02-08 13:46 | Outpatient (CLI) | payer MEDICARE, SELFPAY ==
--- NOTE | ~2024-02-08 | DEXA_ITS ---
Bone Density Report Name: RUBEN DANIELSON Age: 73 Sex: Female Ethnicity: White Date of : 1950 Indication: postmenopausal; screening for osteoporosis; cancer; hysterectomy; Referring Provider: MAGY CAREY Study: Bone densitometry was performed. Exam Date: February 08, 2024 Accession number: [id number] Bone Density: Region BMD T-score Z-score Classification AP Spine(L1-L4) 0.912 -1.2 1.1 Osteopenia Femoral Neck (Left) 0.631 -2.0 0.0 Osteopenia Total Hip (Left) 0.824 -1.0 0.7 Normal Femoral Neck (Right) 0.681 -1.5 0.5 Osteopenia Total Hip (Right) 0.884 -0.5 1.2 Normal Total Hip Mean 0.854 -0.8 1.0 Normal World Health Organization criteria for BMD impression classify patients as: Normal (T-score at or above -1.0), Osteopenia (T-score between -1.0 and -2.5), or Osteoporosis (T-score at or below -2.5). 10-year Fracture Risk(1): Major Osteoporotic Fracture 12% Hip Fracture 2.7% Reported Risk Factors: [place] (), Neck BMD=0.631, BMI=27.5 (1) FRAX(R) Version 3.08. Fracture probability calculated for an untreated patient. Fracture probability may be lower if the patient has received treatment. Clinical Information Provided by Patient: Has used the following medications: Fosamax (i.e. alendronate), Vitamin D, Calcium Has the following medical conditions: Cancer, Hysterectomy Patient maximum height was 63.5 Menopause Age: 43 Drinks caffeinated beverages Onset of menses at age 12 Number of children 2 Impression: The patient has low bone mass, based on the Left Femoral Neck T-score. The patient has an estimated ten-year risk of hip fracture of 2.7% and an estimated ten-year risk of major fracture of 12%, based on the WHO FRAX algorithm. Discussion: BONE DENSITY IS LOW AT ONE OR MORE SKELETAL SITES. This patient's lowest T-score is low at one or more skeletal sites. It meets the World Health Organization's (WHO) criteria for ?low bone mass? (T-score between -1.0 and -2.5). The patient's 10-year risk of fracture as calculated by FRAX is less than the threshold where pharmacological therapy is recommended by the National Osteoporosis Foundation (NOF). However, all treatment decisions require clinical judgment and consideration of individual patient factors, including patient preferences, comorbidities, previous drug use, risk factors not captured in the FRAX model (e.g., frailty, falls, vitamin D deficiency, increased bone turnover, interval significant decline in bone density) and possible under or overestimation of fracture risk by FRAX. The patient should follow a healthful lifestyle (good nutrition with adequate calcium and vitamin D, and appropriate weight-bearing exercise). Follow-Up: Consider repeating this study in 2 to 3 years to reassess this patient's status, or sooner if there is some new clinical indication. Reported by: SABINE on 02/08/2024 2:21:00 PM. Reviewed, dictated and finalized at location AStan NEGRON
== END 2024-02-08 13:47 | disposition home or self-care (01) ==
LOC: ANHIMG 13:47
PROVIDERS: PCP Family Medicine; Visit Provider Student in an Organized Health Care Education/Training Program
DX: Z78.0 Asymptomatic menopausal state (principal); M85.88 Other specified disorders of bone density and structure, other site; M85.852 Other specified disorders of bone density and structure, left thigh; M85.851 Other specified disorders of bone density and structure, right thigh
CPT/HCPCS: 77080

== ENCOUNTER 2024-03-13 10:41 | Outpatient (CLI) | payer MEDICARE, SELFPAY ==
--- NOTE | ~2024-03-13 | US_ITS ---
US arterial ankle brachial ind INDICATION: Peripheral vascular disease TECHNIQUE: Segmental pressures and plethysmographic and Doppler waveforms of the brachial and lower e xtremity arteries were obtained. COMPARISON: None. FINDINGS: Right and left brachial artery pressures of 115 mm Hg and 112 mm Hg, respectively, are concordant (no rmal difference <= 30 mmHg). The right ankle-brachial index (ASHLEY) is 1.26 (normal >= 0.9-1.0). The right great toe-brachial index (TBI) is 0.59 (normal >= 0.60). The left ASHLEY is 1.19. The left TBI is 0.48. IMPRESSION: 1. Normal ankle-brachial indices. 2: Diminished bilateral toe brachial indices, consistent with peripheral arterial disease. Reviewed, dictated and finalized at location B. CUTTER IMPRESSION: 1. Normal ankle-brachial indices. 2: Diminished bilateral toe brachial indices, consistent with peripheral arter ial disease.
== END 2024-03-13 10:42 | disposition home or self-care (01) ==
PROVIDERS: PCP Family Medicine; Visit Provider Student in an Organized Health Care Education/Training Program
DX: R09.89 Other specified symptoms and signs involving the circulatory and respiratory systems (principal); R20.2 Paresthesia of skin; R20.0 Anesthesia of skin
CPT/HCPCS: 93922

== ENCOUNTER 2024-05-02 13:39 | Outpatient (CLI) | payer OTHER, SELFPAY ==
--- OUTSIDE RECORDS SUMMARY | 2024-05-02 13:51 | XMS_ITS | Encounter Summary ---
Author Organization [facility] Healthcare Address [address] [place] [address] Care Team Providers Care Toolroom Helper Name Role Phone Rozina Packer MD Primary Care Provider + [phone] Michael Rivera MD Unavailable Unruly Evans MD Unavailable [phone] Encounter Details Date Type Department Care Team (Late st Contact Info) Description 08/15/2020 Telephone [facility] [address] [place], [place] [id number] Nery Scott, RT Social History Tobacco Use Types Packs/Day Years Used Date Smoking Tobacco: Never Smokeless Tobacco: Never Alcohol Use Standard Drinks/Week Comments Yes 0 (1 standard drink = 0.6 oz pur e alcohol) 3-4 drinks/month Comments No Sex and Gender Information Value Date Recorded Sex Assigned at Not on file 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 Gender Identity Not on file Sexual Orientation Not on file Occupation Industry Job Start Date Job End Date TEACHER Not on file Not on file Not on file documented as of this encounter Plan of Treatment Not on file documented as of this encounter Visit Diagnoses Not on filedocumented in this encounter Care Teams Toolroom Helper Relationship Specialty Start Date End Date Rozina Packer MD [address] [place] [address] [place] [address] PCP - General 04/30/17 Michael Rivera MD [address] [place] [address] [place] [address] Surgeon Orthopedic Surgery 07/26/19 Unruly Evans MD [facility] [place] [address] Profile Stitching Machine Operator Dermatology 07/26/19 documented as of this encounter
--- OUTSIDE RECORDS SUMMARY | 2024-05-02 13:51 | XMS_ITS | Continuity of Care Document ---
Author Organization [facility] Address [address] [place] [address] [place] [address] Phone Care Team Providers Care Completion Engineer Name Role Phone Deras OD, Steve Unavailable Unavailable Procedures Procedure Date Office/outpatient Visit, [facility] Office/outpatient Visit, New Advance Directives Directive Yes / No Effective Date File Name No Information Encounters Encounter Description Practice Location Reason(s) For Visit Diagnoses Date Provider Providers Copied on Encounter Office/outpat ient Visit, [facility] [place], [address] [place] [address] [address], [place], [place], [id number], [place] tel:[phone] [facility] No Information 7-200 9 Deras OD Steve. [address] , [address], [place], [address], [place]. tel:[phone] Office/outpat ient Visit, [facility], [address] [place] [address] [address], [place], [place], [id number], [place] tel:[phone] [address] [facility] No Information 8-200 7 Deras OD Steve. [address] , [address], [place], [address], [place]. tel:[phone] Family History Family Member Type Diagnosis Age At Onset No Information Payers Payer name Insurance type Covered constitution party ID Authoriza tion(s) No Information Social History Type Description Quantity Date Captured Comments Sex Female Smoking Status No Information Chief Complaint And Reason For Visit No Information Reason For Referral Reason For Referral No Information History Of Present Illness Encounter Date Complaint History Of Prese nt Illness No Information Functional Status Date Functional Assessmen t No Information Instructions Date Instruction Additional Infor mation No Information Assessments Type Assessment Date No Information Patient Care Teams Name Effective Dates (start - stop) Status Members No Information
--- OUTSIDE RECORDS SUMMARY | 2024-05-02 13:51 | XMS_ITS | Referral Summary ---
Author Organization [facility] Address [address] [place] [address] Care Team Providers Care Grade School Teacher Name Role Phone Rozina Packer MD Primary Care Provider [phone] Michael Rivera MD Unavailable [phone] Unruly Evans MD Unavailable [phone] Allergies No known active allergies Medications estradioL (ESTRACE) 1 mg tablet estradiol 1 mg tablet TAKE 1 TABLET BY MOUTH ONCE DAILY Active ALPRAZolam (NIRAVAM) 0.25 mg disintegrating tablet Take 0.25 mg by mouth as needed Active atorvastatin (LIPITOR) 10 mg tablet atorvastatin 10 mg tablet TK 1 T PO QD 05/14/19 21 Active azelastine 205.5 mcg (0.15 %) spray,non-aerosol azelastine 205.5 mcg (0.15 %) nasal spray Active diclofenac sodium (VOLTAREN) 1 % gel diclofenac 1 % topical gel Active Active Problems Problem Noted Date Diagnosed Date 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 Overview (06/29/2019): Added automatically from request for surgery [id number] Social History Tobacco Use Types Packs/Day Years Used Date Smoking Tobacco: Never Smokeless Tobacco: Never Alcohol Use Standard Drinks/Week Comments Yes 0 (1 standard drink = 0.6 oz pur e alcohol) 3-4 drinks/month Comments No Sex and Gender Information Value Date Recorded Sex Assigned at Not on file 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 Gender Identity Not on file Sexual Orientation Not on file Occupation Industry Job Start Date Job End Date TEACHER Not on file Not on file Not on file Last Filed Vital Signs Vital Sign Reading Time Taken Comments Blood Pressure 120/58 01/08/2021 9:10 AM CDT Pulse 63 01/08/2021 9:10 AM CDT Temperature 36.7 ??C (98.1 ??F) 08/23/2020 9:35 AM CD T Respiratory Rate 23 08/23/2020 9:05 AM CDT Oxygen Saturation 97% 08/23/2020 9:40 AM CDT Inhaled Oxygen Concentration - - Weight 65.8 kg (145 lb) 08/23/2020 7:44 AM CDT Height 162.6 cm (5' 4 ) 08/23/2020 7:44 AM CDT Body Mass Index 24.89 08/23/2020 7:44 AM CDT Plan of Treatment Not on file Procedures Procedure Name Priority Date/Time Associated Diagnosis Comments SCREENING MAMMOGRAM BILATERAL W MIGUELANGEL Schedule Routine, Read Routine (OP Routine) 05/25/2023 1:28 PM MOVABLE BULKHEAD INSTALLER Screening mammogram, encounter for from Last 3 Months or Most Recently Relevant to Health Maintenance Results * Screening Mammogram Bilateral W Miguelangel (05/25/2023 1:28 PM MOVABLE BULKHEAD INSTALLER) Anatomical Region Laterality Modality Breast Bilateral Mammography Narrative 05/25/2023 3:48 PM MOVABLE BULKHEAD INSTALLER Examination: Screening Mammogram Bilateral W Miguelangel: 05/25/23 Clinical: Screening mammogram, encounter for. Prior Study Comparisons: Comparison was made to the prior available relevant studies at the time of interpretation. Findings: Screening Mammogram Bilateral W Miguelangel Right 1) Post-Surgical Finding: There are post-surgical findings seen in the right breast. Left No significant masses, malignant type calcifications, skin thickening, nipple retraction, or significant lymphadenopathy is noted in this breast. The CAD review showed no significant findings. The breasts are heterogeneously dense, which may obscure small masses. The patient will be notified of results by letter. Impression: BI-RADS?? ATLAS category (overall): 2 - Benign ?? There is no mammographic evidence of malignancy. Routine Screening Mammogram in 1 Yr is recommended for bilateral Overall Assessment: 2 - Benign us Self Screening Mammogram IMG MAMMO PROCEDURES Fi nal Result from Last 3 Months or Most Recently Relevant to Health Maintenance Insurance MEDICARE [facility] MEDICARE Address: [address] [address] [place] [address] AETNA MEDICARE AETNA MEDICARE Advance Directives For more information, please contact: [phone] * Full Code (Latest Code Status on File) Date Activated Date Inactivated Comments 08/23/2020 9:09 AM 08/23/2020 1:55 PM Care Teams Grade School Teacher Relationship Specialty Start Date End Date Rozina Packer MD [facility] [address] PCP - General 04/30/17 Michael Rivera MD [facility] [place] [address] Surgeon Orthopedic Surgery 07/26/19 Unruly Evans MD [address] [place] [address] [place] [address] Online Merchant Dermatology 07/26/19
--- OUTSIDE RECORDS SUMMARY | 2024-05-02 13:51 | XMS_ITS | Clinical Summary ---
Author Organization [facility] Address [address] [address] Care Team Providers Care Arch Pad Cementer Name Role Phone Flor Garcia MD Primary Care Provider [phone] Source Comments [facility],non-owned Affiliates and Associated Physician Practices is amultiple site organization consisting of ambulatory clinics and hospital sitesin [place], [place], [place] and [place]. This disclosure is being madepursuant to the Care Everywhere program and may not contain all information available regarding this patient. Last updated 17.[facility] Allergies No known active allergies Medications * Be aware that medications may not be up to date on this document. Alwaysverify current medications with the patient. 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 09/28/2019 Overview (09/28/2019): Surgical removed at [facility] Meningioma, recurrent of brain 01/29/2015 Encounters Date Type Department Care Team Description 03/28/2024 2:45 PM PAYROLL HUMAN RESOURCES ASSISTANT Office Visit [facility] - Neurosurgery [facility] [facility] [place] [address] Praveen Atkinson MD Coppens, Jeroen R, MD Meningioma (HCC) (Primary Dx) 03/28/2024 1:00 PM PAYROLL HUMAN RESOURCES ASSISTANT Office Visit [facility] - Rad/Onc [address] [place] [address] Praveen Atkinson MD Meningioma, recurrent of brain (HCC) (Primary Dx) 03/28/2024 12:58 PM PAYROLL HUMAN RESOURCES ASSISTANT - 04/29/2024 11:59 PM PAYROLL HUMAN RESOURCES ASSISTANT Hospital Encounter [facility] - Radiation Oncology [address] [place] [address] Praveen Atkinson MD Discharge Disposition: Home or Self Care 03/28/2024 10:30 AM PAYROLL HUMAN RESOURCES ASSISTANT - 03/28/2024 12:57 PM PAYROLL HUMAN RESOURCES ASSISTANT Hospital Encounter [facility] MRI [address] [place] [address] Praveen Atkinson MD Discharge Disposition: Home or Self Care 03/28/2024 Travel 02/01/2024 Travel from Last 3 Months Immunizations Name Administration Dates Next Due [place] primary monoval ent 12+ yr 0.3mL Purple cap 05/25/2020,05/03/2020 INFLUENZA VACCINE, HIGH-DOSE , QUADR. (FLUZONE HIGH-DOSE QUADRIVALENT; 65Y+), 0.7 ML (HD-IIV4) 01/09/2017 Family History Medical History Relation Name Comments Cancer - Colon Father Cancer - Skin, Melanoma Neg Hx Cancer - Skin, Non Melanoma Neg Hx Eczema Neg Hx Psoriasis Neg Hx Urticaria Neg Hx Relation Name Status Comments Father Social History Tobacco Use Types Packs/Day Years Used Date Smoking Tobacco: Never Smokeless Tobacco: Never Tobacco Cessation:Counseling Given: Not Answered Alcohol Use Standard Drinks/Week Comments Yes 0 (1 standard drink = 0.6 oz pur e alcohol) PHQ-2 Answer Date Recorded Patient Health Questionnaire-2 Score 0 03/28/2024 Sex and Gender Information Value Date Recorded Sex Assigned at Female 01/15/2022 12:08 PM CDT Gender Identity Female 01/15/2022 12:08 PM CDT Sexual Orientation Not on file Last Filed Vital Signs Vital Sign Reading Time Taken Comments Blood Pressure 134/68 03/28/2024 1:03 PM PAYROLL HUMAN RESOURCES ASSISTANT Pulse 67 03/28/2024 1:03 PM PAYROLL HUMAN RESOURCES ASSISTANT Temperature 36.7 ??C (98 ??F) 03/28/2024 1:03 PM PAYROLL HUMAN RESOURCES ASSISTANT Respiratory Rate 18 03/28/2024 1:03 PM PAYROLL HUMAN RESOURCES ASSISTANT Oxygen Saturation 100% 03/28/2024 1:03 PM PAYROLL HUMAN RESOURCES ASSISTANT Inhaled Oxygen Concentration - - Weight 75.8 kg (167 lb) 03/28/2024 12:01 PM PAYROLL HUMAN RESOURCES ASSISTANT Height 162.6 cm (5' 4 ) 03/28/2024 12:01 PM PAYROLL HUMAN RESOURCES ASSISTANT Body Mass Index 28.67 03/28/2024 12:01 PM PAYROLL HUMAN RESOURCES ASSISTANT Plan of Treatment Upcoming Encounters Date Type Department Care Team (Late st Contact Info) Description 12/18/2024 8:30 AM CDT Appointment [facility] MRI [address] [place] [address] Praveen Atkinson MD [address] [place] [address] 12/18/2024 10:00 AM CDT Appointment [facility] RAD ONC [address] [place] [address] Praveen Atkinson MD [address] [place], [place] [id number] Health Maintenance Due Date Last Done Comments BONE DENSITY TESTING 1950 COLOGUARD (AGES 45-75) - COLON CA SCREENING 1950 COLON MONITORING 1950 COLONOSCOPY - COLON CA SCREENING 1950 CT COLONOGRAPHY - COLON CA SCREENING 1950 Colorectal Cancer Screening 1950 FIT - COLON CA SCREENING 1950 FLEX SIG - COLON CA SCREENING 1950 LIPID TESTING 1950 HEPATITIS C SCREENING 11/18/1968 DTAP/TDAP/TD VACCINES (1 - Tdap) 1969 PNEUMOCOCCAL VACCINE 50+ (1 of 1 - PCV) 2000 ZOSTER VACCINE (1 of 2) 2000 COVID-19 VACCINE (3 - season) 2023 05/25/2020, 05/03/2020 INFLUENZA VACCINE (#1) 2023 01/09/2017 DEPRESSION SCREENING 03/29/2024 03/28/2024 MEDICARE AWV ? CALENDAR YEAR 2024 MAMMOGRAM 05/25/2025 05/25/2023, 04/30, 03/13/2022, Additional history exists Respiratory Syncytial Virus (RSV) Vaccine Pt: or over 60 yrs (1 - 1-dose 75+ series) 2025 HEPATITIS B VACCINE Aged Out No longe r eligible based on patient's age to complete this topic HIB VACCINE Aged Out No longer eligi ble based on patient's age to complete this topic HPV VACCINE Aged Out No longer eligi ble based on patient's age to complete this topic MENINGOCOCCAL (Group B) VACCINE Aged Out No longer eligible based on patient's age to complete this topic MENINGOCOCCAL VACCINE Aged Out No flores hugh eligible based on patient's age to complete this topic Procedures Procedure Name Priority Date/Time Associated Diagnosis Comments MRI BRAIN WWO CONTRAST Routine 03/28/2024 11:46 AM PAYROLL HUMAN RESOURCES ASSISTANT Meningioma, recurrent of brain (HCC) from Last 3 Months Results * MRI BRAIN WWO CONTRAST PERFUSION (03/28/2024 11:46 AM PAYROLL HUMAN RESOURCES ASSISTANT) Anatomical Region Laterality Modality Head Magnetic Resonan ce 04/01/2024 1:40 PM PAYROLL HUMAN RESOURCES ASSISTANT Impressions 04/01/2024 2:02 PM PAYROLL HUMAN RESOURCES ASSISTANT IMPRESSION: 1. No evidence of disease progression. No significant interval change in size of multiple extra-axial nodular lesions. 2. Interval development of a 10 x 7 mm focus of susceptibility artifact in the region of the left hypothalamus (series 10 image 29) without corresponding signal abnormality or enhancement other sequences is indeterminant but may represent small focal intraparenchymal hemorrhage. Attention to this area is recommended on follow-up examinations. > Interpreting Provider: Veronica Gramajo MD on 04/01/2024 2:02 PM Narrative 04/01/2024 2:02 PM PAYROLL HUMAN RESOURCES ASSISTANT PROCEDURE: ??MRI BRAIN WWO CONTRAST, DATE/TIME OF EXAM: ??03/28/2024 11:46 AM, LOCATION ??[facility] INDICATION: D32.0: Meningioma, recurrent of brain (HCC) ADDITIONAL CLINICAL INFORMATION: Ordering Provider Reason For Exam: ??eval for response Technologist Note: Additional: TECHNIQUE: MRI of the brain was performed prior to and following the uneventful administration of intravenous contrast according to a tumor protocol. CONTRAST: GADOBUTROL 1 MMOL/ML IV SSM SO:6 mL COMPARISON: 09/20/2023. FINDINGS: Redemonstration of postoperative changes of right frontal craniotomy for tumor resection. Grossly unchanged significant vasogenic edema and gliosis in the right frontal lobe. There has been no significant interval change in size of multiple extra-axial nodular lesions. As a reference, a right parafalcine lesion now measures 11 x 6 mm (series 23 image 105) versus previously 11 x 6 mm (series 14 image 101). A parafalcine nodule now measures 6 x 9 mm (series 23 image 92) versus previously 9 x 6 mm (series 14 image 87). An anterior midline lesion now measures 11 x 9 mm (series 23 image 108) versus previously 11 x 9 mm (series 14 image 103). Interval development of a 10 x 7 mm focus of susceptibility artifact in the region of the left hypothalamus (series 10 image 29) without corresponding signal abnormality or enhancement other sequences. No evidence of acute cerebral infarction is seen. There is mild cerebral volume loss with associated ex vacuo ventricular dilatation. No mass effect or midline shift is seen. Mild periventricular white matter FLAIR hyperintensities are nonspecific, but can be seen in the setting of chronic small vessel ischemic disease. The corpus callosum and sella appear normal. The posterior fossa, brainstem, and craniocervical junction appear normal. Other than mild paranasal sinus disease, the visualized portions of the orbits, paranasal sinuses, and mastoids appear normal. Normal flow voids are demonstrated in the carotid arteries and basilar artery. The calvarium and visualized cervical spine appear normal. Procedure Note Veronica Gramajo MD - 04/01/2024 PROCEDURE: MRI BRAIN WWO CONTRAST, DATE/TIME OF EXAM: 03/28/2024 11:46 AM, LOCATION [facility] INDICATION: D32.0: Meningioma, recurrent of brain (HCC) ADDITIONAL CLINICAL INFORMATION: Ordering Provider Reason For Exam: eval for response Technologist Note: Additional: TECHNIQUE: MRI of the brain was performed prior to and following the uneventful administration of intravenous contrast according to a tumor protocol. CONTRAST: GADOBUTROL 1 MMOL/ML IV SSM SO:6 mL COMPARISON: 09/20/2023. FINDINGS: Redemonstration of postoperative changes of right frontal craniotomy for tumor resection. Grossly unchanged significant vasogenic edema andgliosis in the right frontal lobe. There has been no significant interval change in size of multiple extra-axial nodular lesions. As a reference, a right parafalcine lesionnow measures 11 x 6 mm (series 23 image 105) versus previously 11 x 6 mm (series 14 image 101). A parafalcine nodule now measures 6 x 9 mm(series 23 image 92) versus previously 9 x 6 mm (series 14 image 87). Ananterior midline lesion now measures 11 x 9 mm (series 23 image 108) versus previously 11 x 9 mm (series 14 image 103). Interval development of a 10 x 7 mm focus of susceptibility artifact inthe region of the left hypothalamus (series 10 image 29) withoutcorresponding signal abnormality or enhancement other sequences. No evidence of acute cerebral infarction is seen. There is mild cerebral volume loss with associated ex vacuo ventricular dilatation. No masseffect or midline shift is seen. Mild periventricular white matter FLAIR hyperintensities are nonspecific, but can be seen in the setting ofchronic small vessel ischemic disease. The corpus callosum and sella appearnormal. The posterior fossa, brainstem, and craniocervical junction appearnormal. Other than mild paranasal sinus disease, the visualized portions of the orbits, paranasal sinuses, and mastoids appear normal. Normal flow voids are demonstrated in the carotid arteries and basilar artery. Thecalvarium and visualized cervical spine appear normal. IMPRESSION: 1. No evidence of disease progression. No significant interval change in size of multiple extra-axial nodular lesions. 2. Interval development of a 10 x 7 mm focus of susceptibility artifactin the region of the left hypothalamus (series 10 image 29) without corresponding signal abnormality or enhancement other sequences is indeterminant but may represent small focal intraparenchymal hemorrhage. Attention to this area is recommended on follow-up examinations. > Interpreting Provider: Veronica Gramajo MD on 04/01/2024 2:02 PM Praveen Atkinson MD MR ORDERABLES from Last 3 Months Insurance Payer Benefit Plan / Group Subscriber ID Effective Dates Phone Address Type AETNA MEDICARE ADV AETNA MEDICARE ADV HMO/PPO/PFFS [id number] 03/29/2022-Prese nt [address] [place] [address] Medicare- Managed Care AETNA AETNA MEDICARE ADV PPO/HMO/PFFS [id number] 03/29/2022-Prese nt [address] [place] [address] Medicare- Managed Care UHC MANAGED MEDICARE ADV UHC COMPLETE CHOICE MEDICARE ADV PPO [id number] 03/29/2016-Prese nt [phone] [address] [address] [place] [address] Medicare- Managed Care AETNA AETNA MEDICARE ADV PPO/HMO/PFFS [id number] 03/29/2022-Prese nt [address] [place] [address] Medicare- Managed Care UHC MANAGED MEDICARE ADV UHC COMPLETE CHOICE MEDICARE ADV PPO [id number] 03/29/2016-Prese nt [phone] [address] [address] [place] [address] Medicare- Managed Care AETNA AETNA MEDICARE ADV PPO/HMO/PFFS [id number] 03/29/2022-Prese nt [address] [place] [address] Medicare- Managed Care UHC MANAGED MEDICARE ADV UHC COMPLETE CHOICE MEDICARE ADV PPO [id number] 03/29/2016-Prese nt [phone] [address] [address] [place] [address] Medicare- Managed Care AETNA AETNA MEDICARE ADV PPO/HMO/PFFS [id number] 03/29/2022-Prese nt [address] [place] [address] Medicare- Managed Care UHC MANAGED MEDICARE ADV UHC COMPLETE CHOICE MEDICARE ADV PPO [id number] 03/29/2016-Prese nt [phone] [address] [address] [place] [address] Medicare- Managed Care AETNA AETNA MEDICARE ADV PPO/HMO/PFFS [id number] 03/29/2022-Prese nt [address] [facility] [address] Medicare- Managed Care UHC MANAGED MEDICARE ADV UHC COMPLETE CHOICE MEDICARE ADV PPO [id number] 03/29/2016-Prese nt [phone] [address] [address] [place] [address] Medicare- Managed Care AETNA AETNA MEDICARE ADV PPO/HMO/PFFS [id number] 03/29/2022-Prese nt [address] [place] [address] Medicare- Managed Care UHC MANAGED MEDICARE ADV UHC COMPLETE CHOICE MEDICARE ADV PPO [id number] 03/29/2016-Prese nt [phone] [address] [address] [place] [address] Medicare- Managed Care AETNA AETNA MEDICARE ADV PPO/HMO/PFFS [id number] 03/29/2022-Prese nt [address] [place] [address] Medicare- Managed Care UHC MANAGED MEDICARE ADV UHC COMPLETE CHOICE MEDICARE ADV PPO [id number] 03/29/2016-Prese nt [phone] [address] [address] [place] [address] Medicare- Managed Care AETNA AETNA MEDICARE ADV PPO/HMO/PFFS [id number] Effective for all dates [address] [place] [address] Medicare- Managed Care UHC MANAGED MEDICARE ADV UHC COMPLETE CHOICE MEDICARE ADV PPO [id number] 03/29/2016-Prese nt [phone] [address] [address] [place] [address] Medicare- Managed Care UHC MANAGED MEDICARE ADV UHC COMPLETE CHOICE MEDICARE ADV PPO [id number] 03/29/2016-Prese nt [phone] [address] [address] [place] [address] Medicare- Managed Care AETNA AETNA MEDICARE ADV HMO/PPO [id number] Effective for all dates [address] [place] [address] Medicare- Managed Care UHC MANAGED MEDICARE ADV UHC COMPLETE CHOICE MEDICARE ADV PPO [id number] 03/29/2016-Prese nt [phone] [address] [address] [place] [address] Medicare- Managed Care [facility] MANAGED MEDICARE ADV UHC COMPLETE CHOICE MEDICARE ADV PPO [id number] 03/29/2016-[facility] [address] [address] [place] [address] Medicare- Managed Care [facility] MANAGED MEDICARE ADV UH COMPLETE CHOICE MEDICARE ADV PPO [id number] 03/29/2016-Prese [phone] [address] [address] [place] [address] Medicare- Managed Care [facility] MANAGED MEDICARE ADV UH COMPLETE CHOICE MEDICARE ADV PPO [id number] 03/29/2016-[facility] [phone] [address] [address] [place] [address] Medicare- Managed Care Care Teams Arch Pad Cementer Relationship Specialty Start Date End Date Flor Garcia MD [address] [place] [address] PCP - General Family Medicine 09/21/23
--- OUTSIDE RECORDS SUMMARY | 2024-05-02 13:51 | XMS_ITS | Encounter Summary ---
Author Organization [facility] Address [address] [facility] [place] [address] Care Team Providers Care Dog Bather Name Role Phone Rozina Packer MD Primary Care Provider [phone] Flor Garcia MD Primary Care Provider [phone] Encounter Details Date Type Department Care Team (Late Contact Info) Description 12/10/2022 Lab Requisition [facility] Derm[facility] Lab [address] [facility], [place] [id number] Fay Araujo MD [address] [place] [address] [place] [address] Neoplasm of uncertain behavior of skin; Other specified erythematous conditions Social History Tobacco Use Types Packs/Day Years Used Date Smoking Tobacco: Never Smokeless Tobacco: Never Alcohol Use Standard Drinks/Week Comments Yes 0 (1 standard drink = 0.6 oz pur e alcohol) Sex and Gender Information Value Date Recorded Sex Assigned at Female 01/15/2022 12:08 PM CDT Gender Identity Female 01/15/2022 12:08 PM CDT Sexual Orientation Not on file documented as of this encounter Plan of Treatment Upcoming Encounters Date Type Department Care Team (Late Contact Info) Description 12/18/2024 8:30 AM CDT Appointment [facility] [address] [place] [address] Praveen Atkinson MD [address] [place] [address] 12/18/2024 10:00 AM CDT Appointment [facility] RAD ONC [address] [place] [address] Praveen Atkinson MD [address] [place] [address] documented as of this encounter Procedures Procedure Name Priority Date/Time Associated Diagnosis Comments DERMATOPATHOLOGY Routine 12/10/2022 3:33 AM CDT Neoplasm of uncertain behavior of skin Other specified erythematous conditions documented in this encounter Results * DERMATOPATHOLOGY (12/10/2022 3:33 AM CDT) Case Report Dermatopathology Report ? Case: [id number] ? Authorizing Provider: ??Fay Araujo MD ?Collected: ? 12/10/2022 03:33 AM ? Ordering Location: ? [facility] ? Received: ?12/11/2022 12:44 PM ? Pathologist: ? Nelli Rodriguez, ? MD ? Specimen: ?Skin, left jawline ? 3 4:27 PM T DERMATOPATHOLOGY LABORATORY Final Diagnosis Specimen A. SKIN, left jawline: RUPTURED EPIDERMOID CYST (L72.0) 3 4:27 PM T DERMATOPATHOLOGY LABORATORY Clinical History Cyst 3 4:27 PM CDT DERMATOPATHOLOGY LABORATORY Gross Description Specimen A: Received is one formalin filled container labeled with the patient's name and designated left jawline. The specimen consists of a 8x3x6 mm piece of skin. The specimen is serially sectioned and a plastic products sales representative section is submitted in cassette 1. Jar 1. 3 4:27 PM T DERMATOPATHOLOGY LABORATORY Microscopic Description Specimen A. SKIN, left jawline: Within the dermis, there is an infiltrate composed of lymphocytes and histiocytes, including multinucleated type giant cells. Some histiocytes contain flakes of material consistent with keratin. 3 4:27 PM T DERMATOPATHOLOGY LABORATORY Disclaimer An external and internal positive and negative controls are appropriate for the histochemical, immunohistochemical and immunofluorescence stain(s) in this case (if any), except where stated explicitly. The performance characteristics of the stain(s) cited in this report were developed and its performance characteristic determined by the Dermatopathology Laboratory at [facility], directed by Dr. Kyle Anthony. These tests need not be, and therefore are not, approved by the [place] Food and Drug Administration. The tests are used for clinical purposes. Billing Codes Specimen Charges Stain Charges 22806 1 3 4:27 PM CDT DERMATOPATHOLOGY LABORATORY Embedded Images 3 4:27 PM CDT DERMATOPATHOLOGY LABORATORY Pathology/Cytolo gy TISSUE SPECIMEN FROM SKIN / Unknown 12/10/2022 3:33 AM CDT 12/11/2022 12:44 PM CDT Fay Araujo MD LAB - PATHOLOGY/CYTO LOGY ORDERABLES DERMATOPATHOLOGY LABORATORY [facility] Department of Dermatology [facility] Specialized Medicine [address] [place] [address], [address] [phone] documented in this encounter Visit Diagnoses Diagnosis Neoplasm of uncertain behavior of skin Other specified erythematous conditions documented in this encounter Care Teams Dog Bather Relationship Specialty Start Date End Date Rozina Packer MD [facility] [place] [id number] PCP - General Family Medicine 09/28/19 09/20/23 Flor Garcia MD [address] [place] [address] PCP - General Family Medicine 09/21/23 documented as of this encounter
--- OUTSIDE RECORDS SUMMARY | 2024-05-02 13:51 | XMS_ITS ---
Author Organization [facility] Address [address] [facility] [place] [address] Care Team Providers Care Md Psychiatry Name Role Phone Flor Garcia MD Primary Care Provider [phone] Active Problems Problem Noted Date Diagnosed Date Malignant melanoma of right upper extremity including shoulder 09/28/2019 Overview (09/28/2019): Surgical removed at [facility] Meningioma, recurrent of brain 01/29/2015 Current Oncology Plans No current plan information found. Past Plans No past plan information found. Radiation Treatments * Plan Last Treated On Elapsed Days Fractions Treated Prescribed Fraction Dose Prescribed Total Dose #[id number] 06/09/2023 ? 5 of 5 ? 3,000 cGy Reference Point Last Treated On Elapsed Days Session Dose Total Dose PTVbed 06/09/2023 ? 600 cGy 3,000 cGy
--- OUTSIDE RECORDS SUMMARY | 2024-05-02 13:51 | XMS_ITS | Patient Health Summary ---
Author Organization [facility] Address [address] [facility] [place] [address] Care Team Providers Care Beef Boner Name Role Phone Flor Garcia MD Primary Care Provider [phone] Note from [facility],non-owned Affiliates and Associated Physician Practices is amultiple site organization consisting of ambulatory clinics and hospital sitesin [place], [place], [place] and [place]. This disclosure is being madepursuant to the Care Everywhere program and may not contain all information available regarding this patient. Last updated 17.[facility] Allergies No known active allergies Medications * Be aware that medications may not be up to date on this document. Alwaysverify current medications with the patient. 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 (FLUZONE HIGH-DOSE QUADRIVALENT; 65Y+), 0.7 ML (HD-IIV4)(Given 01/09/2017) Social History Tobacco Use Types Packs/Day Years [...] Comments Blood Pressure 134/68 03/28/2024 1:03 PM ENROBING MACHINE FEEDER Pulse 67 03/28/2024 1:03 PM ENROBING MACHINE FEEDER Temperature 36.7 ??C (98 ??F) 03/28/2024 1:03 PM ENROBING MACHINE FEEDER Respiratory Rate 18 03/28/2024 1:03 PM ENROBING MACHINE FEEDER Oxygen Saturation 100% 03/28/2024 1:03 PM ENROBING MACHINE FEEDER Inhaled Oxygen Concentration - - Weight 75.8 kg (167 lb) 03/28/2024 12:01 PM ENROBING MACHINE FEEDER Height 162.6 cm (5' 4 ) 03/28/2024 12:01 PM ENROBING MACHINE FEEDER Body Mass Index 28.67 03/28/2024 12:01 PM ENROBING MACHINE FEEDER Procedures * MRI BRAIN WWO CONTRAST(Performed 03/28/2024) Performed for Meningioma, recurrent of brain (HCC) * MRI BRAIN WWO CONTRAST(Performed 09/20/2023) Performed for Meningioma, recurrent of brain (HCC) * CREATININE - POCT INTERFACED(Performed 09/20/2023) * RAD ONC ARIA SESSION SUMMARY(Performed 06/09/2023) * RAD ONC ARIA SESSION SUMMARY(Performed 06/07/2023) * RAD ONC ARIA SESSION SUMMARY(Performed 06/04/2023) * RAD ONC ARIA SESSION SUMMARY(Performed 06/02/2023) * RAD ONC ARIA SESSION SUMMARY(Performed 05/31/2023) * MRI BRAIN WWO CONTRAST(Performed 04/29/2023) Performed for Meningioma, recurrent of brain (HCC) * CREATININE - POCT INTERFACED(Performed 04/29/2023) * DERMATOPATHOLOGY(Performed 12/10/2022) Performed for Neoplasm of uncertain behavior of skin, Other specified erythematous conditions * MRI BRAIN WWO CONTRAST(Performed 07/14/2022) Performed for Meningioma, recurrent of brain (HCC) * CREATININE - POCT INTERFACED(Performed 07/14/2022) * DERMATOPATHOLOGY(Performed 04/08/2022) Performed for Neoplasm of uncertain behavior of skin * MRI BRAIN WWO CONTRAST(Performed 01/13/2022) Performed for Meningioma, recurrent of brain (HCC), Malignant melanoma of right upper extremity including shoulder (HCC) * CREATININE - POCT INTERFACED(Performed 01/13/2022) * MRI BRAIN WWO CONTRAST(Performed 09/30/2021) Performed for Meningioma, recurrent of brain (HCC) * CREATININE - POCT INTERFACED(Performed 09/30/2021) * MRI BRAIN WWO CONTRAST(Performed 09/28/2019) Performed for Meningioma, recurrent of brain (HCC) * CREATININE - POCT INTERFACED(Performed 09/28/2019) * MRI BRAIN WWO CONTRAST(Performed 07/08/2018) Performed for Meningioma, recurrent of brain (HCC) * CREATININE BLOOD - POCT (IP) [facility](Performed 07/08/2018) Performed for Meningioma, recurrent of brain (HCC) * MRI BRAIN WWO CONTRAST(Performed 07/14/2017) Performed for Meningioma, recurrent of brain (HCC) * CREATININE BLOOD - POCT (IP) [facility](Performed 07/14/2017) Performed for Meningioma, recurrent of brain (HCC) * MRI BRAIN WWO CONTRAST(Performed 07/15/2016) * CREATININE BLOOD - POCT (IP) [facility](Performed 07/15/2016) * MRI BRAIN WWO CONTRAST(Performed 12/04/2015) * CREATININE BLOOD - POCT (IP) [facility](Performed 12/04/2015) * MRI BRAIN WWO CONTRAST(Performed 09/05/2015) * CREATININE BLOOD - POCT (IP) [facility](Performed 09/05/2015) * CT RAD THERAPY WO CONTRAST(Performed 01/29/2015) * MRI BRAIN WWO CONTRAST(Performed 01/08/2015) * CREATININE BLOOD - POCT (IP) [facility](Performed 01/08/2015) * DERMATOPATHOLOGY(Performed 03/27/2014) * MRI BRAIN WWO CONTRAST(Performed 12/12/2013) * CREATININE BLOOD - POCT (IP) [facility](Performed 12/12/2013) * MRI BRAIN WWO CONTRAST(Performed 12/07/2012) * MRI BRAIN WWO CONTRAST(Performed 12/09/2011) * PATHOLOGY REPORTS - HPF HISTORICAL(Performed 06/18/2009) * LAB MICROBIOLOGY - HPF HISTORICAL(Performed 06/07/2009) * LAB MICROBIOLOGY - HPF HISTORICAL(Performed 05/30/2009) * CREATININE BLOOD - POCT (IP) [facility](Performed 03/29/1998) Results * MRI BRAIN WWO CONTRAST PERFUSION (03/28/2024 11:46 AM ENROBING MACHINE FEEDER) Only the most recent of16 resultswithin the time period is included. Anatomical Region Laterality Modality Head Magnetic Resonan ce 04/01/2024 1:40 PM ENROBING MACHINE FEEDER Impressions 04/01/2024 2:02 PM ENROBING MACHINE FEEDER IMPRESSION: 1. No evidence of disease progression. [...] 04/01/2024 2:02 PM Narrative 04/01/2024 2:02 PM ENROBING MACHINE FEEDER PROCEDURE: ??MRI BRAIN WWO CONTRAST, DATE/TIME OF EXAM: ??03/28/2024 11:46 AM, LOCATION ??[facility] INDICATION: D32.0: Meningioma, recurrent of brain (HCC) [...] DATE/TIME OF EXAM: 03/28/2024 11:46 AM, LOCATION [facility] INDICATION: D32.0: Meningioma, recurrent of brain (HCC) ADDITIONAL CLINICAL INFORMATION: Ordering Provider Reason For Exam: eval for response Technologist Note: Additional: TECHNIQUE: MRI of the brain was performed prior to and following the uneventful administration of intravenous contrast according to a tumor protocol. CONTRAST: GADOBUTROL 1 MMOL/ML IV [facility] SO:6 mL COMPARISON: 09/20/2023. FINDINGS: Redemonstration of [...] 2:02 PM Praveen Atkinson MD MR ORDERABLES * CREATININE - POCT INTERFACED (09/20/2023 10:37 AM CDT) Only the most recent of6 resultswithin the time period is included. Creatinine POCT 0.65 0.30 - 1.30 mg/dL 09/20/2023 10:39 AM CDT [facility] eGFR >90 >=90 mL/min/1.7 3 m2 09/20/2023 10:39 AM CDT [facility] Blood BLOOD SPECIMEN / Unknown 09/20/2023 10:37 AM CDT 09/20/2023 10:38 AM CDT Praveen Atkinson MD LAB - POINT OF CARE ORDERABLES [address] [address], [facility] [phone] * Rad Onc Aria Session Summary (06/09/2023 1:20 PM CDT) Course ID [id number] RAD ONC TREATMENT Course First Treatment Date 05/31/2023 1:45 PM RAD ONC TREATMENT Reference Point ID PTVbed RAD ONC TREATMENT Reference Point Dosage Given to Date 30 Gy RAD ONC TREATMENT Reference Point Session Dosage Given 6 Gy RAD ONC TREATMENT Plan ID #[id number] RAD ONC TREATMENT Plan Fractions Treated to Date 5 RAD ONC TREATMENT Plan Total Fractions Prescribed 5 RAD ONC TREATMENT Plan Total Prescribed Dose 3000 cGy RAD ONC TREATMENT 06/09/2023 1:20 PM CDT Provider Unknown RADIATION ONCOLOGY O RDERABLES Performing Organization Address [facility] Co de Phone Number RAD ONC TREATMENT * Rad Onc Aria Session Summary (06/07/2023 2:45 PM CDT) Course ID [id number] RAD ONC TREATMENT Course First Treatment Date 05/31/2023 1:45 PM RAD ONC TREATMENT Reference Point ID PTVbed RAD ONC TREATMENT Reference Point Dosage Given to Date 24 Gy RAD ONC TREATMENT Reference Point Session Dosage Given 6 Gy RAD ONC TREATMENT Plan ID #[id number] RAD ONC TREATMENT Plan Fractions Treated to Date 4 RAD ONC TREATMENT Plan Total Fractions Prescribed 5 RAD ONC TREATMENT Plan Total Prescribed Dose 3000 cGy RAD ONC TREATMENT 06/07/2023 2:45 PM CDT Provider Unknown RADIATION ONCOLOGY O RDERABLES RAD ONC TREATMENT * Rad Onc Aria Session Summary (06/04/2023 9:05 AM ENROBING MACHINE FEEDER) Course ID [id number] RAD ONC TREATMENT Course First Treatment Date 05/31/2023 1:45 PM RAD ONC TREATMENT Reference Point ID PTVbed RAD ONC TREATMENT Reference Point Dosage Given to Date 18 Gy RAD ONC TREATMENT Reference Point Session Dosage Given 6 Gy RAD ONC TREATMENT Plan ID #[id number] RAD ONC TREATMENT Plan Fractions Treated to Date 3 RAD ONC TREATMENT Plan Total Fractions Prescribed 5 RAD ONC TREATMENT Plan Total Prescribed Dose 3000 cGy RAD ONC TREATMENT 06/04/2023 9:05 AM ENROBING MACHINE FEEDER Provider Unknown RADIATION ONCOLOGY O RDERABLES Performing Organization Address [facility]/ZIP Co de Phone Number RAD ONC TREATMENT * Rad Onc Aria Session Summary (06/02/2023 2:18 PM ENROBING MACHINE FEEDER) Course ID [id number] RAD ONC TREATMENT Course First Treatment Date 05/31/2023 1:45 PM RAD ONC TREATMENT Reference Point ID PTVbed RAD ONC TREATMENT Reference Point Dosage Given to Date 12 Gy RAD ONC TREATMENT Reference Point Session Dosage Given 6 Gy RAD ONC TREATMENT Plan ID #[id number] RAD ONC TREATMENT Plan Fractions Treated to Date 2 RAD ONC TREATMENT Plan Total Fractions Prescribed 5 RAD ONC TREATMENT Plan Total Prescribed Dose 3000 cGy RAD ONC TREATMENT 06/02/2023 2:18 PM ENROBING MACHINE FEEDER Provider Unknown RADIATION ONCOLOGY O RDERABLES Performing Organization Address [facility] Co de Phone Number RAD ONC TREATMENT * Rad Onc Aria Session Summary (05/31/2023 1:56 PM ENROBING MACHINE FEEDER) Course ID [id number] RAD ONC TREATMENT Course First Treatment Date 05/31/2023 1:45 PM RAD ONC TREATMENT Reference Point ID PTVbed RAD ONC TREATMENT Reference Point Dosage Given to Date 6 Gy RAD ONC TREATMENT Reference Point Session Dosage Given 6 Gy RAD ONC TREATMENT Plan ID #[id number] RAD ONC TREATMENT Plan Fractions Treated to Date 1 RAD ONC TREATMENT Plan Total Fractions Prescribed 5 RAD ONC TREATMENT Plan Total Prescribed Dose 3000 cGy RAD ONC TREATMENT 05/31/2023 1:56 PM ENROBING MACHINE FEEDER Provider Unknown RADIATION ONCOLOGY O RDERABLES RAD ONC TREATMENT * DERMATOPATHOLOGY (12/10/2022 3:33 AM CDT) Only the most recent of3 resultswithin the time period is included. Case Report Dermatopathology Report ? Case: [id number] ? Authorizing Provider: ??Fay Araujo MD ?Collected: ? 12/10/2022 03:33 AM ? Ordering Location: ? [facility] ? Received: ?12/11/2022 12:44 PM ? Pathologist: ? Nelli Rodriguez, ? MD ? Specimen: ?Skin, left jawline ? 3 4:27 PM CDT DERMATOPATHOLOGY LABORATORY Final Diagnosis Specimen A. SKIN, left jawline: RUPTURED EPIDERMOID CYST (L72.0) 3 4:27 PM CDT DERMATOPATHOLOGY LABORATORY Clinical History Cyst 3 4:27 PM T DERMATOPATHOLOGY LABORATORY Gross Description Specimen A: Received is one formalin filled container labeled with the patient's name and designated left jawline. The specimen consists of a 8x3x6 mm piece of skin. The specimen is serially sectioned and a b2b outside sales representative section is submitted in cassette 1. Jar 1. 3 4:27 PM [facility] DERMATOPATHOLOGY LABORATORY Microscopic Description Specimen A. SKIN, left jawline: Within the dermis, there is an infiltrate composed of lymphocytes and histiocytes, including multinucleated type giant cells. Some histiocytes contain flakes of material consistent with keratin. 3 4:27 PM [facility] DERMATOPATHOLOGY LABORATORY Disclaimer An external and internal positive and negative controls are appropriate for the histochemical, immunohistochemical and immunofluorescence stain(s) in this case (if any), except where stated explicitly. The performance characteristics of the stain(s) cited in this report were developed and its performance characteristic determined by the Dermatopathology Laboratory at [facility], directed by Dr. Kyle Anthony. These tests need not be, and therefore are not, approved by the [place] Food and Drug Administration. The tests are used for clinical purposes. Billing Codes Specimen Charges Stain Charges 22356 1 3 4:27 PM CDT DERMATOPATHOLOGY LABORATORY Embedded Images 3 4:27 PM T DERMATOPATHOLOGY LABORATORY Pathology/Cytolo gy TISSUE SPECIMEN FROM SKIN / Unknown 12/10/2022 3:33 AM CDT 12/11/2022 12:44 PM CDT Fay Araujo MD LAB - PATHOLOGY/CYTO LOGY ORDERABLES DERMATOPATHOLOGY LABORATORY [facility] - Department of Dermatology [address], [address] [phone] * CREATININE BLOOD - POCT (IP) [facility] (07/08/2018 9:06 AM CDT) Only the most recent of8 resultswithin the time period is included. Creatinine POCT 0.79 0.3 - 1.3 mg/dL [facility] POCT TESTING eGFR POCT 60 60 ml/min [facility] POCT TESTING Blood BLOOD SPECIMEN / Unknown 07/08/2018 9:06 AM CDT Praveen Atkinson MD LAB - POINT OF CARE ORDERABLES [facility] POCT TESTING [address] [place] [address], [facility] [phone] * CT RAD THERAPY WO CONTRAST (01/29/2015 1:37 PM ENROBING MACHINE FEEDER) Anatomical Region Laterality Modality Other Impressions 01/29/2015 2:29 PM ENROBING MACHINE FEEDER IMPRESSION: 1. CT localization for radiation treatment planning. This report was approved ??by Praveen Spann ?? on 01/29/2015 1:48 PM . Lilia, Dr. BEVERLY MADSEN M.D. have personally reviewed and interpreted this examination/study. This report was electronically signed by BEVERLY MADSEN M.D. ??on 01/29/2015 2:29 PM . Narrative 01/29/2015 2:29 PM ENROBING MACHINE FEEDER EXAMINATION: Computed tomography (CT) radiation treatment plan neuro HISTORY: meningioma TECHNIQUE: CT of the head and neck was performed without contrast according to radiation treatment planning protocol. FINDINGS: Comparison is made to an MR brain dated 01/08/2015. There is right frontal encephalomalacia and postoperative appearance of a right frontal craniotomy. Procedure Note Beverly Madsen MD - 06/26/2017 EXAMINATION: Computed tomography (CT) radiation treatment plan neuro HISTORY: meningioma TECHNIQUE: CT of the head and neck was performed without contrastaccording to radiation treatment planning protocol. FINDINGS: Comparison is made to an MR brain dated 01/08/2015. There is right frontal encephalomalacia and postoperative appearance of aright frontal craniotomy. IMPRESSION IMPRESSION: 1. CT localization for radiation treatment planning. This report was approved by Praveen Spann on 01/29/2015 1:[address] BEVERLY Rodrigues M.D. have personally reviewed and interpreted thisexamination/study. This report was electronically signed by BEVERLY MADSEN M.D. on 01/29/20152:29 PM . Praveen Atkinson MD CT ORDERABLES * PATHOLOGY REPORTS - HPF HISTORICAL (06/18/2009 3:31 PM CDT) 06/18/2009 3:[address] [facility] - 06/18/2009 3:31 PM CDT Chris Mina MD LAB - PATHOLOGY/CYTO LOGY ORDERABLES Performing Organization Address [facility] Co de Phone Number [facility] * LAB MICROBIOLOGY - HPF HISTORICAL (06/07/2009 5:04 AM ENROBING MACHINE FEEDER) Only the most recent of2 resultswithin the time period is included. 06/07/2009 5:04 AM ENROBING MACHINE FEEDER [facility] - 06/07/2009 5:04 AM ENROBING MACHINE FEEDER Chris Mina MD LAB - MICROBIOLOGY O RDERABLES Performing Organization Address [place]/[facility]/ZIP Co de Phone Number [facility] Care Teams Beef Boner Relationship Specialty Start Date End Date Flor Garcia MD [address] [place] [address] PCP - General Family Medicine 09/21/23
--- OUTSIDE RECORDS SUMMARY | 2024-05-02 13:51 | XMS_ITS | Clinical Summary ---
Author Organization [facility] Address [address] [place] [address] Care Team Providers Care Replanting Machine Operator Name Role Phone Rozina Packer MD Primary Care Provider [phone] Michael Rivera MD Unavailable Unruly Evans MD Unavailable [phone] Allergies No known active allergies Medications estradioL [...] (06/29/2019): Added automatically from request for surgery [id number] Surgical History Surgery Date Site/Laterality Comments CRANIOTOMY 03/29/2009 - 03/28/2010 Right frontal meningioma SKIN GRAFT 06/26/2016 Right thumb--x2 BRAIN MENINGIOMA EXCISION 03/29/2009 - 03/28/2010 Right frontal MELANOMA RESECTION 06/02/2016 Right thumb LUMBAR LAMINECTOMY HYSTERECTOMY 03/29/1994 - 03/28/1995 BOWEL RESECTION 03/29/2014 - 03/28/2015 diverticulitis BREAST BIOPSY BREAST BIOPSY 01/08/2021 Right Medical History Medical History Date Comments Seasonal allergies well controll ed with meds Anxiety well controlled with meds Meningioma (HCC) 2009 right frontal-- benign. No recurrence Sinus infection 05/28/2019 treated with ora l antibiotics-->now resolved Motion sickness Depression well controlled with meds Arthritis Cancer (CMS/HCC) (HCC) 05/2016 melanoma- right thumb-->surgery, no chemo or radiation. Abnormal cells 1 year later. thumb re-sected again. PONV (postoperative nausea a nd vomiting) Diverticulitis 2014 Family History Medical History Relation Name Comments Alcohol abuse Father Cancer Father Family history of malignant neoplasm - (Added by TW Conv) Hypertension Father Arthritis Mother Relation Name Status Comments Father Mother Social History Tobacco Use Types Packs/Day Years Used Date Smoking Tobacco: Never Smokeless Tobacco: Never Alcohol Use Standard Drinks/Week Comments Yes 0 (1 standard drink = 0.6 oz pur e alcohol) 3-4 drinks/month Comments No Sex and Gender Information Value Date Recorded Sex Assigned at Not on file Legal Sex Female 6:10 AM QUALITY ASSURANCE NURSE Gender Identity Not on file Sexual Orientation Not on file Occupation Industry Job Start Date Job End Date TEACHER Not on file Not on file Not on file Obstetrics History Last Filed Vital Signs Vital Sign Reading [...] 08/23/2020 7:44 AM CDT Plan of Treatment Health Maintenance Due Date Last Done Comments Colon Cancer Screening-Colonoscopy 1950 Depression Screening 1950 Hepatitis C Screening 1950 Hepatitis B Screening 1968 Well Visit 65+ 11/24/2015 Zoster Vaccine (3 of 3) 08/23/2018 06/28/2018, 03/29 Pneumococcal vaccine 65+ (2 of 2 - PPSV23 or PCV20) 01/14/2021 01/15/2020, 02/22/2018 Fall Risk Assessment 01/08/2022 01/08/2021 Covid-19 Vaccine (3 - 2023-2 5 season) 2023 05/25/2020, 05/03/2020 Influenza Vaccine (#1) 2023 9, 12/25/2017, 01/09/2017, Additional history exists Osteoporosis Screening-Bone Density Scan 04/03/2024 04/03/2022 Breast Cancer Screening-Mammogram 05/25/2024 05/25/2023, 03/13/2022, 12/10/2020, Additional history exists DTaP/Tdap/Td Vaccine (3 - Td or Tdap) 06/16/2028 06/16/2018, 04/27/2017 Procedures Procedure Name Priority Date/Time Associated Diagnosis Comments SCREENING MAMMOGRAM BILATERAL W MIGUELANGEL Schedule Routine, Read Routine (OP Routine) 05/25/2023 1:28 PM QUALITY ASSURANCE NURSE Screening mammogram, encounter for from Last 3 Months or Most Recently Relevant to Health Maintenance Results * Screening Mammogram Bilateral W Miguelangel (05/25/2023 1:28 PM QUALITY ASSURANCE NURSE) Anatomical Region Laterality Modality Breast Bilateral Mammography Narrative 05/25/2023 3:48 PM QUALITY ASSURANCE NURSE Examination: Screening Mammogram Bilateral W Miguelangel: 05/25/23 [...] Relevant to Health Maintenance Insurance MEDICARE SOLUTIONS AETNA MEDICARE AETNA MEDICARE Advance Directives For more information, please contact: [phone] * Full Code (Latest Code Status on File) Date Activated Date Inactivated Comments 08/23/2020 9:09 AM 08/23/2020 1:55 PM Care Teams Replanting Machine Operator Relationship Specialty Start Date End Date Rozina Packer MD [address] [place] [address] [place] [address] PCP - General 04/30/17 Michael Rivera MD [address] [place] [address] [place] [address] Surgeon Orthopedic Surgery 07/26/19 Unruly Evans MD [address] [place] [address] [place] [address] Yard Rigger Dermatology 07/26/19
--- OUTSIDE RECORDS SUMMARY | 2024-05-02 13:51 | XMS_ITS | Continuity of Care Document ---
Author Organization [facility] Address [address] [place] [address] Phone Care Team Providers Care Horse Riding Coach Or Instructor Name Role Phone DoseRamakrishna san DPM Unavailable Unavailable Allergies, Adverse Reactions, Alerts Substance Reaction Status Criticality No Known Allergies Active No Inform ation Procedures Procedure Date X-ray exam foot, minimum 3 views 2023 Global/Postop followup visit Correction Hallux Rigidus W/ Cheilectomy W/ Implant X-ray exam foot, minimum 3 views 2022 Office/outpatient visit,[facility] [place] Advance Directives Directive Yes / No Effective Date File Name No Information Encounters Encounter Description Practice Location Reason(s) For Visit Diagnoses Date Provider Providers Copied on Encounter [facility], [address] [place] [address], [id number], [place] tel:[phone] [facility] Follow Up of right foot (chief complaint) Pain in right footHallux rigidus, right foot 4 Kayla Durbin. [address] [place] [address], [place] [address], [place], [place], [id number] , [place]. tel:[phone] Referring Provider: Ramakrishna Arnold, [address] [place] [address] [address] [facility], [place], [address] . tel:[phone] [facility], [address] [place] [address], [id number], [place] tel:[phone] [facility] No Information 4 Doser Ramakrishna. [address] [facility], [place] [address], [place], [place], [id number] , . tel:[phone] Referring Provider: Ramakrishna Arnold, [address] [facility] [address], [place], [address] . tel:[phone] [facility], [address], [id number], tel:[phone] [facility] Pain in right foot 4 Doser Ramakrishna. [address] [facility], [place] [address], [place], [place], [id number] , [place]. tel:[phone] Office[facility]outpat ient [facility], [address], [id number], tel:[phone] [facility] Unsuccessful toe joint surgery (chief complaint) Pain in right footHallux rigidus, right foot 3 Doser Ramakrishna. [address] [facility], [place] [address], [place], [place], [id number] , . tel:[phone] Family History Family Member Type Diagnosis Age At Onset Mother Problem (finding) Osteoporosis Father Problem (finding) Alcoholism Father Problem (finding) Heart Disease Father Problem (finding) Cancer, unknown Father Problem (finding) Diabetes Payers Payer name Insurance type Covered constitution party ID Minhdougie kaileycheyenne(s) Aetna Medicare CI [id number] Social History Type Description Quantity Date Captured Comments Alcohol Use Details Unknown Caffeine Use Details Unknown Tobacco Use Status No Information Smoking Status Never smoker Sex Female Chief Complaint And Reason For Visit From encounter dated '04/20/2023 09:30'. Follow Up of right foot (chief complaint) Reason For Referral Reason For Referral No Information History Of Present Illness Encounter Date Complaint History Of Prese nt Illness Follow Up of right foot Unsuccessful toe joint surgery Functional Status Date Functional Assessmen t No Information Instructions Date Instruction Additional Infor mation No Information Assessments Type Assessment Date assessment Pain in right foot assessment Hallux rigidus, right foot Patient Care Teams Name Effective Dates (start - stop) Status Members No Information
--- OUTSIDE RECORDS SUMMARY | 2024-05-02 13:51 | XMS_ITS | Referral Summary ---
Author Organization [facility] Address [address] [place] [address] Care Team Providers Care Interceptor Operator Name Role Phone Flor Garcia MD Primary Care Provider [phone] Source Comments [facility],non-owned Affiliates and Associated Physician Practices is amultiple site organization consisting of ambulatory clinics and hospital sitesin [place], [place] and [place]. This disclosure is being madepursuant to the Care Everywhere program and may not contain all information available regarding this patient. Last updated 17.[facility] Encounters Date Type Department Care Team Description 03/28/2024 12:58 PM SHIFT SUPERINTENDENT CAUSTIC CRESYLATE - 04/29/2024 11:59 PM SHIFT SUPERINTENDENT CAUSTIC CRESYLATE Hospital Encounter [facility] Cancer [facility] - Radiation Oncology [address] [place] [address] Praveen Atkinson MD Discharge Disposition: Home or Self Care 03/28/2024 Travel 03/28/2024 1:00 PM SHIFT SUPERINTENDENT CAUSTIC CRESYLATE Office Visit [facility] Cancer [facility] - Rad/Onc [address] [place] [address] Praveen Atkinson MD Meningioma, recurrent of brain (HCC) (Primary Dx) 03/28/2024 2:45 PM SHIFT SUPERINTENDENT CAUSTIC CRESYLATE Office Visit [facility] - Neurosurgery [address] [place] [address], [place] [address] Praveen Atkinson MD Coppens, Jeroen R, MD Meningioma (HCC) (Primary Dx) 03/28/2024 10:30 AM SHIFT SUPERINTENDENT CAUSTIC CRESYLATE - 03/28/2024 12:57 PM SHIFT SUPERINTENDENT CAUSTIC CRESYLATE Hospital Encounter [facility] MRI [address] [place] [address] Praveen Atkinson MD Discharge Disposition: Home or Self Care 02/01/2024 Travel from Last 3 Months Allergies No known active allergies Medications * [...] shoulder 09/28/2019 Overview (09/28/2019): Surgical removed at [facility] Meningioma, recurrent of brain 01/29/2015 Immunizations Name Administration Dates Next Due CDP primary monoval ent 12+ yr 0.3mL Purple cap 05/25/2020,05/03/2020 INFLUENZA VACCINE, HIGH-DOSE , QUADR. (FLUZONE HIGH-DOSE QUADRIVALENT; 65Y+), 0.7 ML (HD-IIV4) 01/09/2017 Social History Tobacco Use Types Packs/Day Years [...] Comments Blood Pressure 134/68 03/28/2024 1:03 PM SHIFT SUPERINTENDENT CAUSTIC CRESYLATE Pulse 67 03/28/2024 1:03 PM SHIFT SUPERINTENDENT CAUSTIC CRESYLATE Temperature 36.7 ??C (98 ??F) 03/28/2024 1:03 PM SHIFT SUPERINTENDENT CAUSTIC CRESYLATE Respiratory Rate 18 03/28/2024 1:03 PM SHIFT SUPERINTENDENT CAUSTIC CRESYLATE Oxygen Saturation 100% 03/28/2024 1:03 PM SHIFT SUPERINTENDENT CAUSTIC CRESYLATE Inhaled Oxygen Concentration - - Weight 75.8 kg (167 lb) 03/28/2024 12:01 PM SHIFT SUPERINTENDENT CAUSTIC CRESYLATE Height 162.6 cm (5' 4 ) 03/28/2024 12:01 PM SHIFT SUPERINTENDENT CAUSTIC CRESYLATE Body Mass Index 28.67 03/28/2024 12:01 PM SHIFT SUPERINTENDENT CAUSTIC CRESYLATE Plan of Treatment Upcoming Encounters Date Type Department Care Team (Late st Contact Info) Description 12/18/2024 8:30 AM CDT Appointment [facility] MRI [address] [place] [id number] Praveen Atkinson MD [address] [place] [id number] 12/18/2024 10:00 AM CDT Appointment [facility] RAD ONC [address] [place] [id number] Praveen Atkinson MD [address] [place] [address] [id number] Procedures Procedure Name Priority Date/Time Associated Diagnosis Comments MRI BRAIN WWO CONTRAST Routine 03/28/2024 11:46 AM SHIFT SUPERINTENDENT CAUSTIC CRESYLATE Meningioma, recurrent of brain (HCC) from Last 3 Months Results * MRI BRAIN WWO CONTRAST PERFUSION (03/28/2024 11:46 AM SHIFT SUPERINTENDENT CAUSTIC CRESYLATE) Anatomical Region Laterality Modality Head Magnetic Resonan ce 04/01/2024 1:40 PM SHIFT SUPERINTENDENT CAUSTIC CRESYLATE Impressions 04/01/2024 2:02 PM SHIFT SUPERINTENDENT CAUSTIC CRESYLATE IMPRESSION: 1. No evidence of disease progression. [...] 04/01/2024 2:02 PM Narrative 04/01/2024 2:02 PM SHIFT SUPERINTENDENT CAUSTIC CRESYLATE PROCEDURE: ??MRI BRAIN WWO CONTRAST, DATE/TIME OF EXAM: ??03/28/2024 11:46 AM, LOCATION ??[facility] INDICATION: D32.0: Meningioma, recurrent of brain [...] DATE/TIME OF EXAM: 03/28/2024 11:46 AM, LOCATION [facility] INDICATION: D32.0: Meningioma, recurrent of brain [...] AETNA MEDICARE ADV AETNA MEDICARE ADV HMO/PPO/PFFS [id number] 03/29/2022-Prese nt [address] [place] [address] Medicare- Managed Care AETNA AETNA MEDICARE ADV PPO/HMO/PFFS [id number] 03/29/2022-Prese nt [address] [place] [address] Medicare- Managed Care UHC MANAGED MEDICARE ADV UHC COMPLETE CHOICE MEDICARE ADV PPO [id number] 03/29/2016-Prese nt [address] [address] [place] [address] Medicare- Managed Care AETNA AETNA MEDICARE ADV PPO/HMO/PFFS [id number] 03/29/2022-Prese nt [address] [place] [address] Medicare- Managed Care C MANAGED MEDICARE ADV UHC COMPLETE CHOICE MEDICARE ADV PPO [id number] 03/29/2016-Prese nt [address] [address] [place] [address] Medicare- Managed Care AETNA AETNA MEDICARE ADV PPO/HMO/PFFS [id number] 03/29/2022-Prese nt [address] [place] [address] Medicare- Managed Care UHC MANAGED MEDICARE ADV UHC COMPLETE CHOICE MEDICARE ADV PPO [id number] 03/29/2016-Prese nt [phone] [address] [address] [place] [address] Medicare- Managed Care AETNA AETNA MEDICARE ADV PPO/HMO/PFFS [id number] 03/29/2022-Prese nt [address] [place] [address] Medicare- Managed Care UHC MANAGED MEDICARE ADV UHC COMPLETE CHOICE MEDICARE ADV PPO [id number] 03/29/2016-Prese nt [address] [address] [place] [address] Medicare- Managed Care AETNA AETNA MEDICARE ADV PPO/HMO/PFFS [id number] 03/29/2022-Prese nt [address] [place] [address] Medicare- Managed Care UHC MANAGED MEDICARE ADV UHC COMPLETE CHOICE MEDICARE ADV PPO [id number] 03/29/2016-Prese nt [address] [address] [place] [address] Medicare- Managed Care AETNA AETNA MEDICARE ADV PPO/HMO/PFFS [id number] 03/29/2022-Prese nt [address] [place] [address] Medicare- Managed Care UHC MANAGED MEDICARE ADV UHC COMPLETE CHOICE MEDICARE ADV PPO [id number] 03/29/2016-Prese nt [address] [address] [place] [address] Medicare- Managed Care AETNA AETNA MEDICARE ADV PPO/HMO/PFFS [id number] 03/29/2022-Prese nt [address] [place] [address] Medicare- Managed Care UHC MANAGED MEDICARE ADV UHC COMPLETE CHOICE MEDICARE ADV PPO [id number] 03/29/2016-Prese nt [phone] [address] [address] [place] [address] Medicare- Managed Care AETNA AETNA MEDICARE ADV PPO/HMO/PFFS [id number] Effective for all dates [address] [place] [address] Medicare- Managed Care UHC MANAGED MEDICARE ADV UHC COMPLETE CHOICE MEDICARE ADV PPO [id number] 03/29/2016-Prese nt [address] [address] [place] [address] Medicare- Managed Care UHC MANAGED MEDICARE ADV UHC COMPLETE CHOICE MEDICARE ADV PPO [id number] 03/29/2016-Prese nt [address] [address] [place] [address] Medicare- Managed Care AETNA AETNA MEDICARE ADV HMO/PPO [id number] Effective for all dates [address] [place] [address] Medicare- Managed Care UHC MANAGED MEDICARE ADV UHC COMPLETE CHOICE MEDICARE ADV PPO [id number] 03/29/2016-Prese nt [phone] [address] [address] [place] [address] Medicare- Managed Care UH MANAGED MEDICARE ADV UHC COMPLETE CHOICE MEDICARE ADV PPO [id number] 03/29/2016-Prese nt [phone] [address] [address] [place] [address] Medicare- Managed Care UHC MANAGED MEDICARE ADV UHC COMPLETE CHOICE MEDICARE ADV PPO [id number] 03/29/2016-Prese nt [phone] [address] [address] [place] [address] Medicare- Managed Care UH MANAGED MEDICARE ADV UHC COMPLETE CHOICE MEDICARE ADV PPO [id number] 03/29/2016-Prese nt [phone] [address] [address] [place] [address] Medicare- Managed Care Care Teams Interceptor Operator Relationship Specialty Start Date End Date Flor Garcia MD [address] [place] [address] PCP - General Family Medicine 09/21/23
[2024-05-02 14:28] LABS: Hematocrit 40.9 % (37.0-47.0); Hemoglobin 13.4 g/dL (12.0-15.0); Mean Corpuscular HGB Conc 32.8 g/dl (32-36); Mean Corpuscular Hemoglobin 30.5 pg (26-34); Mean Platelet Volume 9.8 fl (7.4-10.4); Platelet Count Result 263 k/mm3 (150-375); Red Cell Distribution Width 13.9 % (11.5-14.5); White Blood Count 5.4 K/mm3 (4.5-10.0)
[2024-05-02 15:19] LABS: Anion Gap 8 mmol/L (4-12); Blood Urea Nitrogen 28 mg/dL (7-17); Calcium 9.6 mg/dL (8.4-10.2); Carbon Dioxide 25 mmol/L (22-30); Chloride 106 mmol/L (98-107); Estimated Glomerular Filt Rate > 60; Glucose 101 mg/dL (65-110); Sodium 139 mmol/L (137-145)
[2024-05-02 15:29] LABS: Prealbumin 25.1 mg/dL (17.6-36.0)
[2024-05-02 15:43] LABS: Iron 109 ug/dL (37-170)
== END 2024-05-02 13:40 | disposition home or self-care (01) ==
PROVIDERS: PCP Family Medicine; Visit Provider Surgery Plastic and Reconstructive Surgery
DX: Z90.49 Acquired absence of other specified parts of digestive tract (principal)
CPT/HCPCS: 36415; 80048; 82040; 83540; 84134; 84425; 85027

== ENCOUNTER 2024-05-08 14:31 | Outpatient (CLI) | payer OTHER, SELFPAY ==
--- NOTE | 2024-05-08 14:30 | ECG_ITS ---
Test Date: 2024-05-08 15:01:20 Measurements Intervals [place] Rate: 67 P: 0 IA: 0 QRS: -18 QRSD: 85 T: 48 QT: 396 QTc: 419 Interpretive Statements SINUS RHYTHM INFERIOR INFARCT, AGE INDETERMINATE POOR R WAVE PROGRESSION, CONSIDER ANTERIOR INFARCT BASELINE ARTIFACT- I, II, V4-V6 ABNORMAL ECG No previous ECG available for comparison Electronically Signed On 05-08-2024 15:09:12 BRANCH DIRECTOR by Conor Chance D.O.
--- OUTSIDE RECORDS SUMMARY | 2024-05-08 14:53 | XMS_ITS ---
Author Organization [facility] Address [address] [place] [address] Care Team Providers Care Cake Puncher Name Role Phone zzzzMigration, zzzzProvider Unavailable Unav ailable Allergies No Known Allergies REASON FOR VISIT EMR-Kraig Encounters Encounter Location Date Provider Diagnosis [facility] [address] [facility] [address] [place] [address] 01/17/2023 zzzzProvider zzzzMigration Plan Of Treatment No Information Progress Notes * Shameka DANIELSON LDOB: [birth year] (73 yo F)Acc No.[id number]:01/17/2023 Patient: Shameka TAN :1950 A ge:72 Y S ex:Female Address:[facility] [address], [place], [address] Subjective: * Chief Complaints: * E MR-Kraig * Medical History: * Surgical History: * Hospitalization/Major Diagno stic Procedure: * Social History: M igrated Social History: M igrated Social History: Substance Use :: Tobacco :: Never. * Medications: * Allergies: N .K.D.A.no[Allergies Verified] Objective: * Vitals: * Physical Examination: Assessment: Plan: * Treatment: * Procedure Codes: * * Date:
--- OUTSIDE RECORDS SUMMARY | 2024-05-08 14:53 | XMS_ITS | Referral Summary ---
Author Organization [facility] Address [address] [place] [address] Care Team Providers Care Color Maker Dyer Name Role Phone Rozina Packer MD Primary Care Provider [phone] Michael Rivera MD Unavailable [phone] Unruly Evans MD Unavailable [phone] Allergies No known active allergies Medications estradioL [...] (06/29/2019): Added automatically from request for surgery [id number] Social History Tobacco Use Types Packs/Day Years Used Date Smoking Tobacco: Never Smokeless Tobacco: Never Alcohol Use Standard Drinks/Week Comments Yes 0 (1 standard drink = 0.6 oz pur e alcohol) 3-4 drinks/month Comments No Sex and Gender Information Value Date Recorded Sex Assigned at Not on file Legal Sex Female 6:10 AM ACCOUNTING ASSISTANT Gender Identity Not on file Sexual Orientation Not on file Occupation Industry Job Start Date Job End Date TEACHER Not on file Not on file Not on file Last Filed Vital Signs Vital Sign Reading Time Taken Comments Blood Pressure 120/58 01/08/2021 9:10 AM CDT Pulse 63 01/08/2021 9:10 AM CDT Temperature 36.7 C (98.1 F) 08/23/2020 9:35 AM CDT Respiratory Rate 23 08/23/2020 9:05 AM CDT [...] Read Routine (OP Routine) 05/25/2023 1:28 PM ACCOUNTING ASSISTANT Screening mammogram, encounter for from Last 3 Months or Most Recently Relevant to Health Maintenance Results * Screening Mammogram Bilateral W Miguelangel (05/25/2023 1:28 PM ACCOUNTING ASSISTANT) Anatomical Region Laterality Modality Breast Bilateral Mammography Narrative 05/25/2023 3:48 PM ACCOUNTING ASSISTANT Examination: Screening Mammogram Bilateral W Miguelangel: 05/25/23 [...] be notified of results by letter. Impression: BI-RADS ATLAS category (overall): 2 - Benign There is no mammographic evidence of malignancy. Routine Screening Mammogram in 1 Yr is recommended for bilateral Overall Assessment: 2 - Benign us Self Screening Mammogram IMG MAMMO PROCEDURES Fi nal Result from Last 3 Months or Most Recently Relevant to Health Maintenance Insurance MEDICARE SOLUTIONS [facility] MEDICARE Address: [address] [address] [place] [address] AETNA MEDICARE AETNA MEDICARE Advance Directives For more information, please contact: [phone] * Full Code (Latest Code Status on File) Date Activated Date Inactivated Comments 08/23/2020 9:09 AM 08/23/2020 1:55 PM Care Teams Color Maker Dyer Relationship Specialty Start Date End Date Rozina Packer MD [address] [place] [address] [place] [address] PCP - General 04/30/17 Michael Rivera MD [address] [place] [address] [place] [address] Surgeon Orthopedic Surgery 07/26/19 Unruly Evans MD [address] [place] [address] [place] [address] Heating And Ventilating Worker Dermatology 07/26/19
--- OUTSIDE RECORDS SUMMARY | 2024-05-08 14:53 | XMS_ITS | Continuity of Care Document ---
Author Organization [facility] Address [address] [place] [address] [place] [address] Phone Care Team Providers Care Wellness Assistant Name Role Phone Deras OD, Steve Unavailable Unavailable Procedures Procedure Date Office/outpatient Visit, [facility] Office/outpatient Visit, New Advance Directives Directive Yes / No Effective Date File Name No Information Encounters Encounter Description Practice Location Reason(s) For Visit Diagnoses Date Provider Providers Copied on Encounter Office/outpat ient Visit, [facility] [place], [address] [place] [address] [address], [place], [place], [id number], [place] tel:[phone] [facility] No Information 7-200 9 Deras OD Steve. [address] [facility] , [address], [place], [address], [place]. tel:[phone] Office/outpat ient Visit, [facility], [address] [place] [address] [address], [place], [place], [address], [place] tel:[phone] [facility] [place] No Information 8-200 7 Deras OD Steve. [address] [facility] , [address], [place], [address], [place]. tel:[phone] Family History Family Member Type Diagnosis Age At Onset No Information Payers Payer name Insurance type Covered democrat ID Authoriza tion(s) No Information Social History [...]
--- OUTSIDE RECORDS SUMMARY | 2024-05-08 14:53 | XMS_ITS | Encounter Summary ---
Author Organization [facility] Healthcare Address [address] [place] [address] Care Team Providers Care Wool Broker Name Role Phone Rozina Packer MD Primary Care Provider [phone] Michael Rivera MD Unavailable [phone] Unruly Evans MD Unavailable [phone] Encounter Details Date Type Department Care Team (Late st Contact Info) Description 08/15/2020 Telephone [facility] [address] [place], [place] [id number] Nery Scott, RT Social History Tobacco Use Types Packs/Day Years Used Date Smoking Tobacco: Never Smokeless Tobacco: Never Alcohol Use Standard Drinks/Week Comments Yes 0 (1 standard drink = 0.6 oz pur e alcohol) 3-4 drinks/month Comments No Sex and Gender Information Value Date Recorded Sex Assigned at Not on file Legal Sex Female 6:10 AM PROCESS EXCELLENCE MANAGER Gender Identity Not on file Sexual Orientation Not on file Occupation Industry Job Start Date Job End Date TEACHER Not on file Not on file Not on file documented as of this encounter Plan of Treatment Not on file documented as of this encounter Visit Diagnoses Not on filedocumented in this encounter Care Teams Wool Broker Relationship Specialty Start Date End Date Rozina Packer MD [address] [place] [address] [place] [address] PCP - General 04/30/17 Michael Rivera MD [address] [place] [address] [place] [address] Surgeon Orthopedic Surgery 07/26/19 Unruly Evans MD [facility] [place] [address] Pinion And Wheel Truer Dermatology 07/26/19 documented as of this encounter
--- OUTSIDE RECORDS SUMMARY | 2024-05-08 14:53 | XMS_ITS | Patient Health Record ---
Author Organization [facility] Address [address] [facility] [address] [place] [address] Support Name Relationship Address Phone Shameka Kelsey Guarantor Unknown [phone] Allergies No Known Allergies Reason For Referral No Information Problems Problem Type SNOMED Code ICD Code Onset Dates Problem Status W/U Status Risk Notes Problem Actinic keratosis (829118) Actinic keratosis (L57.0) Active confirmed Problem Seborrheic keratosis (87405740) Other seborrheic keratosis (L82.1) Active confirmed Problem History of malignant melanoma of the skin (449119765192) Personal history of malignant melanoma of skin (Z85.820) Active confirmed Plan Of Treatment No Information Insurance Providers Payer Name Payer Address Payer Phone Subscriber Number Group Number Insured Name Patient Relationship to Insured Coverage Start Date Coverage End Date DO NOT USE - [employer] [address] [address] [place], [place] [id number] Shameka Kelsey Self - patient is the insured 7
--- OUTSIDE RECORDS SUMMARY | 2024-05-08 14:53 | XMS_ITS | Clinical Summary ---
Author Organization [facility] Address [address] [place] [address] Care Team Providers Care Weld Technician Name Role Phone Rozina Packer MD Primary Care Provider [phone] Michael Rivera MD Unavailable [phone] Unruly Evans MD Unavailable [phone] Allergies No known active allergies Medications estradioL [...] (06/29/2019): Added automatically from request for surgery [id number] Surgical History Surgery Date Site/Laterality Comments CRANIOTOMY [...] on file Legal Sex Female 6:10 AM PRINTER MACHINE Gender Identity Not on file Sexual Orientation [...] Read Routine (OP Routine) 05/25/2023 1:28 PM PRINTER MACHINE Screening mammogram, encounter for from Last 3 Months or Most Recently Relevant to Health Maintenance Results * Screening Mammogram Bilateral W Miguelangel (05/25/2023 1:28 PM PRINTER MACHINE) Anatomical Region Laterality Modality Breast Bilateral Mammography Narrative 05/25/2023 3:48 PM PRINTER MACHINE Examination: Screening Mammogram Bilateral W Miguelangel: 05/25/23 [...] Advance Directives For more information, please contact: [phone] * Full Code (Latest Code Status on File) Date Activated Date Inactivated Comments 08/23/2020 9:09 AM 08/23/2020 1:55 PM Care Teams Weld Technician Relationship Specialty Start Date End Date Rozina Packer MD [address] [place] [address] [place] [address] PCP - General 04/30/17 Michael Rivera MD [address] [place] [address] [place] [address] Surgeon Orthopedic Surgery 07/26/19 Unruly Evans MD [address] [place] [address] [place] [address] Compressor Mechanic Bus Dermatology 07/26/19
--- OUTSIDE RECORDS SUMMARY | 2024-05-08 14:53 | XMS_ITS | Referral Summary ---
Author Organization [facility] Address [address] [facility] [place] [address] Care Team Providers Care Housecleaner Name Role Phone Flor Garcia MD Primary Care Provider [phone] Source Comments [facility],non-owned Affiliates and Associated Physician Practices is amultiple site organization consisting of ambulatory clinics and hospital sitesin [place], [place], [place] and [place]. This disclosure is being madepursuant to the Care Everywhere program and may not contain all information available regarding this patient. Last updated 17.[facility] Encounters Date Type Department Care Team Description 03/28/2024 12:58 PM RUBBER TESTER - 04/29/2024 11:59 PM RUBBER TESTER Hospital Encounter [facility] Cancer Care - Radiation Oncology [address] [place] [address] Praveen Atkinson MD Discharge Disposition: Home or Self Care 03/28/2024 Travel 03/28/2024 1:00 PM RUBBER TESTER Office Visit [facility] Cancer Care - Rad/Onc [address] [place] [address] Praveen Atkinson MD Meningioma, recurrent of brain (HCC) (Primary Dx) 03/28/2024 2:45 PM RUBBER TESTER Office Visit [facility] - Neurosurgery [address] [place] [address], [place] [address] Praveen Atkinson MD Coppens, Jeroen R, MD Meningioma (HCC) (Primary Dx) 03/28/2024 10:30 AM RUBBER TESTER - 03/28/2024 12:57 PM RUBBER TESTER Hospital Encounter [facility] MRI [address] [place] [address] Praveen Atkinson MD Discharge Disposition: Home or Self Care from Last 3 Months Allergies No known [...] shoulder 09/28/2019 Overview (09/28/2019): Surgical removed at [facility] Meningioma, recurrent of brain 01/29/2015 Immunizations Name Administration Dates Next Due ZeOmega primary monoval ent 12+ yr 0.3mL Purple [...] Comments Blood Pressure 134/68 03/28/2024 1:03 PM RUBBER TESTER Pulse 67 03/28/2024 1:03 PM RUBBER TESTER Temperature 36.7 C (98 F) 03/28/2024 1:03 PM RUBBER TESTER Respiratory Rate 18 03/28/2024 1:03 PM RUBBER TESTER Oxygen Saturation 100% 03/28/2024 1:03 PM RUBBER TESTER Inhaled Oxygen Concentration - - Weight 75.8 kg (167 lb) 03/28/2024 12:01 PM RUBBER TESTER Height 162.6 cm (5' 4 ) 03/28/2024 12:01 PM RUBBER TESTER Body Mass Index 28.67 03/28/2024 12:01 PM RUBBER TESTER Plan of Treatment Upcoming Encounters Date Type Department Care Team (Late st Contact Info) Description 12/18/2024 8:30 AM CDT Appointment [facility] MRI [address] [place] [address] Praveen Atkinson MD [address] [place] [id number] 12/18/2024 10:00 AM CDT Appointment [facility] RAD ONC [address] [place] [id number] Praveen Atkinson MD [address] [place] [id number] Procedures Procedure Name Priority Date/Time Associated Diagnosis Comments MRI BRAIN WWO CONTRAST Routine 03/28/2024 11:46 AM RUBBER TESTER Meningioma, recurrent of brain (HCC) from Last 3 Months Results * MRI BRAIN WWO CONTRAST PERFUSION (03/28/2024 11:46 AM RUBBER TESTER) Anatomical Region Laterality Modality Head Magnetic Resonan ce 04/01/2024 1:40 PM RUBBER TESTER Impressions 04/01/2024 2:02 PM RUBBER TESTER IMPRESSION: 1. No evidence of disease progression. [...] 04/01/2024 2:02 PM Narrative 04/01/2024 2:02 PM RUBBER TESTER PROCEDURE: MRI BRAIN WWO CONTRAST, DATE/TIME OF EXAM: 03/28/2024 11:46 AM, LOCATION [facility] INDICATION: D32.0: Meningioma, recurrent of brain (HCC) [...] DATE/TIME OF EXAM: 03/28/2024 11:46 AM, LOCATION [facility] INDICATION: D32.0: Meningioma, recurrent of brain (HCC) [...] AETNA MEDICARE ADV AETNA MEDICARE ADV HMO/PPO/PFFS [id number] 03/29/2022-Prese nt [address] [place] [address] Medicare- Managed Care AETNA AETNA MEDICARE ADV PPO/HMO/PFFS [id number] 03/29/2022-Prese nt [address] [place] [address] Medicare- Managed Care UHC MANAGED MEDICARE ADV UHC COMPLETE CHOICE MEDICARE ADV PPO [id number] 03/29/2016-Prese nt [address] [address] [place] [address] Medicare- Managed Care AETNA AETNA MEDICARE ADV PPO/HMO/PFFS [id number] 03/29/2022-Prese nt [address] [place] [address] Medicare- Managed Care UHC MANAGED MEDICARE ADV UHC COMPLETE CHOICE MEDICARE ADV PPO [id number] 03/29/2016-Prese nt [address] [address] [place] [address] Medicare- Managed Care AETNA AETNA MEDICARE ADV PPO/HMO/PFFS [id number] 03/29/2022-Prese nt [address] [place] [address] Medicare- Managed Care UHC MANAGED MEDICARE ADV UHC COMPLETE CHOICE MEDICARE ADV PPO [id number] 03/29/2016-Prese nt [address] [address] [place] [address] Medicare- Managed Care AETNA AETNA MEDICARE ADV PPO/HMO/PFFS [id number] 03/29/2022-Prese nt [address] [place] [address] Medicare- Managed Care UHC MANAGED MEDICARE ADV UHC COMPLETE CHOICE MEDICARE ADV PPO [id number] 03/29/2016-Prese nt [phone] [address] [address] [place] [address] Medicare- Managed Care AETNA AETNA MEDICARE ADV PPO/HMO/PFFS [id number] 03/29/2022-Prese nt [address] [place] [address] Medicare- Managed Care UHC MANAGED MEDICARE ADV UHC COMPLETE CHOICE MEDICARE ADV PPO [id number] 03/29/2016-Prese nt [phone] [address] [address] [place] [address] Medicare- Managed Care AETNA AETNA MEDICARE ADV PPO/HMO/PFFS [id number] 03/29/2022-Prese nt [address] [place] [address] Medicare- Managed Care UHC MANAGED MEDICARE ADV UHC COMPLETE CHOICE MEDICARE ADV PPO [id number] 03/29/2016-Prese nt [address] [address] [place] [address] Medicare- Managed Care AETNA AETNA MEDICARE ADV PPO/HMO/PFFS [id number] 03/29/2022-Prese nt [address] [place] [address] Medicare- Managed Care UHC MANAGED MEDICARE ADV UHC COMPLETE CHOICE MEDICARE ADV PPO [id number] 03/29/2016-Prese nt [phone] [address] [address] [place] [address] Medicare- Managed Care AETNA AETNA MEDICARE ADV PPO/HMO/PFFS [id number] Effective for all dates [address] [place] [address] Medicare- Managed Care UHC MANAGED MEDICARE ADV UHC COMPLETE CHOICE MEDICARE ADV PPO [id number] 03/29/2016-Prese nt [address] [address] [place] [address] Medicare- Managed Care UHC MANAGED MEDICARE ADV UHC COMPLETE CHOICE MEDICARE ADV PPO [id number] 03/29/2016-Prese nt [phone] [address] [address] [place] [address] Medicare- Managed Care AETNA AETNA MEDICARE ADV HMO/PPO [id number] Effective for all dates [address] [place] [address] Medicare- Managed Care UHC MANAGED MEDICARE ADV UHC COMPLETE CHOICE MEDICARE ADV PPO [id number] 03/29/2016-Prese nt [phone] [address] [address] [place] [address] Medicare- Managed Care UHC MANAGED MEDICARE ADV UHC COMPLETE CHOICE MEDICARE ADV PPO [id number] 03/29/2016-[place] [phone] [address] [address] [place] [address] Medicare- Managed Care UHC MANAGED MEDICARE ADV UHC COMPLETE CHOICE MEDICARE ADV PPO [id number] 03/29/2016-[place]se nt [phone] [address] [address] [place] [address] Medicare- Managed Care [facility] MANAGED MEDICARE ADV UHC COMPLETE CHOICE MEDICARE ADV PPO [id number] 03/29/2016-Prese nt [phone] [address] [address] [place] [address] Medicare- Managed Care Care Teams Housecleaner Relationship Specialty Start Date End Date Flor Garcia MD [address] [place] [address] PCP - General Family Medicine 09/21/23
--- OUTSIDE RECORDS SUMMARY | 2024-05-08 14:53 | XMS_ITS | Patient Health Summary ---
Author Organization [facility] Address [address] [facility] [place] [address] Care Team Providers Care Railroad Brake Operator Name Role Phone Flor Garcia MD Primary Care Provider [phone] [facility],non-owned Affiliates and Associated Physician Practices is amultiple site organization consisting of ambulatory clinics and hospital sitesin [place], [place], [place] and [place]. This disclosure is being madepursuant to the Care Everywhere program and may not contain all information available regarding this patient. Last updated 17.[facility] Allergies No known active allergies Medications [...] Comments Blood Pressure 134/68 03/28/2024 1:03 PM INTAKE NURSE Pulse 67 03/28/2024 1:03 PM INTAKE NURSE Temperature 36.7 C (98 F) 03/28/2024 1:03 PM INTAKE NURSE Respiratory Rate 18 03/28/2024 1:03 PM INTAKE NURSE Oxygen Saturation 100% 03/28/2024 1:03 PM INTAKE NURSE Inhaled Oxygen Concentration - - Weight 75.8 kg (167 lb) 03/28/2024 12:01 PM INTAKE NURSE Height 162.6 cm (5' 4 ) 03/28/2024 12:01 PM INTAKE NURSE Body Mass Index 28.67 03/28/2024 12:01 PM INTAKE NURSE Procedures * MRI BRAIN WWO CONTRAST(Performed 03/28/2024) [...] BRAIN WWO CONTRAST PERFUSION (03/28/2024 11:46 AM INTAKE NURSE) Only the most recent of16 resultswithin the time period is included. Anatomical Region Laterality Modality Head Magnetic Resonan ce 04/01/2024 1:40 PM INTAKE NURSE Impressions 04/01/2024 2:02 PM INTAKE NURSE IMPRESSION: 1. No evidence of disease progression. [...] 04/01/2024 2:02 PM Narrative 04/01/2024 2:02 PM INTAKE NURSE PROCEDURE: MRI BRAIN WWO CONTRAST, DATE/TIME OF EXAM: 03/28/2024 11:46 AM, LOCATION [facility] INDICATION: D32.0: Meningioma, recurrent of brain (HCC) [...] DATE/TIME OF EXAM: 03/28/2024 11:46 AM, LOCATION [facility] INDICATION: D32.0: Meningioma, recurrent of brain (HCC) [...] - 1.30 mg/dL 09/20/2023 10:39 AM CDT [facility] eGFR >90 >=90 mL/min/1.7 3 m2 09/20/2023 10:39 AM CDT [facility] Blood BLOOD SPECIMEN / Unknown 09/20/2023 10:37 AM CDT 09/20/2023 10:38 AM CDT Praveen Atkinson MD LAB - POINT OF CARE ORDERABLES [facility] [address] [place] [address] [phone] * Rad Onc Aria Session Summary (06/09/2023 1:20 PM CDT) Course ID [id number] tlBrn RAD ONC TREATMENT Course First Treatment [...] Summary (06/07/2023 2:45 PM CDT) Course ID [id number] tlBrn RAD ONC TREATMENT Course First Treatment [...] Onc Aria Session Summary (06/04/2023 9:05 AM INTAKE NURSE) Course ID [id number] tlBrn RAD ONC TREATMENT Course First Treatment [...] cGy RAD ONC TREATMENT 06/04/2023 9:05 AM INTAKE NURSE Provider Unknown RADIATION ONCOLOGY O RDERABLES Performing Organization Address [facility] de Phone Number RAD ONC TREATMENT * Rad Onc Aria Session Summary (06/02/2023 2:18 PM INTAKE NURSE) Course ID [id number] tlBrn RAD ONC TREATMENT Course First Treatment [...] cGy RAD ONC TREATMENT 06/02/2023 2:18 PM INTAKE NURSE Provider Unknown RADIATION ONCOLOGY O RDERABLES Performing Organization Address [facility] Co de Phone Number RAD ONC TREATMENT * Rad Onc Aria Session Summary (05/31/2023 1:56 PM INTAKE NURSE) Course ID [id number] tlBrn RAD ONC TREATMENT Course First Treatment [...] cGy RAD ONC TREATMENT 05/31/2023 1:56 PM INTAKE NURSE Provider Unknown RADIATION ONCOLOGY O RDERABLES Performing Organization Address [facility] Co de Phone Number RAD ONC TREATMENT * DERMATOPATHOLOGY (12/10/2022 3:33 AM CDT) Only the most recent of3 resultswithin the time period is included. Case Report Dermatopathology Report Case: [id number] Authorizing Provider: Fay Araujo MD Collected: 12/10/2022 03:33 AM Ordering Location: [facility] DermPath Lab Received: 12/11/2022 12:44 PM Pathologist: Nelli Rodriguez MD Specimen: Skin, left jawline 4:27 PM CDT DERMATOPATHOLOGY LABORATORY Final Diagnosis Specimen A. SKIN, left jawline: RUPTURED EPIDERMOID CYST (L72.0) 3 4:27 PM CDT DERMATOPATHOLOGY LABORATORY Clinical History Cyst 4:27 PM CDT DERMATOPATHOLOGY LABORATORY Gross Description Specimen A: Received is one formalin filled container labeled with the patient's name and designated left jawline. The specimen consists of a 8x3x6 mm piece of skin. The specimen is serially sectioned and a site safety representative section is submitted in cassette 1. Jar 1. 4:27 PM CDT DERMATOPATHOLOGY LABORATORY Microscopic Description Specimen A. SKIN, left jawline: Within the dermis, there is an infiltrate composed of lymphocytes and histiocytes, including multinucleated type giant cells. Some histiocytes contain flakes of material consistent with keratin. 4:27 PM CDT DERMATOPATHOLOGY LABORATORY Disclaimer An external and internal positive and negative controls are appropriate for the histochemical, immunohistochemical and immunofluorescence stain(s) in this case (if any), except where stated explicitly. The performance characteristics of the stain(s) cited in this report were developed and its performance characteristic determined by the Dermatopathology Laboratory at [facility], directed by Dr. Kyle Anthony. These tests need not be, and therefore are not, approved by the [place] Food and Drug Administration. The tests are used for clinical purposes. Billing Codes Specimen Charges Stain Charges 99476 1 4:27 PM CDT DERMATOPATHOLOGY LABORATORY Embedded Images 4:27 PM CDT DERMATOPATHOLOGY LABORATORY Pathology/Cytolo gy TISSUE SPECIMEN FROM SKIN / Unknown 12/10/2022 3:33 AM CDT 12/11/2022 12:44 PM CDT Fay Araujo MD LAB - PATHOLOGY/CYTO LOGY ORDERABLES DERMATOPATHOLOGY LABORATORY [facility] - Department of Dermatology [facility] [address] [facility] [place] [address], [facility] [phone] * CREATININE BLOOD - POCT (IP) [facility] (07/08/2018 9:06 AM CDT) Only the most recent of8 resultswithin the time period is included. Creatinine POCT 0.79 0.3 - 1.3 mg/dL [facility] POCT TESTING eGFR POCT 60 60 ml/min [facility] POCT TESTING Blood BLOOD SPECIMEN / Unknown 07/08/2018 9:06 AM CDT Praveen Atkinson MD LAB - POINT OF CARE ORDERABLES [facility] POCT TESTING [address] [place] [address], [facility] [phone] * CT RAD THERAPY WO CONTRAST (01/29/2015 1:37 PM INTAKE NURSE) Anatomical Region Laterality Modality Other Impressions 01/29/2015 2:29 PM INTAKE NURSE IMPRESSION: 1. CT localization for radiation treatment planning. This report was approved by Praveen Spann on 01/29/2015 1:48 PM . I, Dr. BEVERLY MADSEN M.D. have personally reviewed and interpreted this examination/study. This report was electronically signed by BEVERLY MADSEN M.D. on 01/29/2015 2:29 PM . Narrative 01/29/2015 2:29 PM INTAKE NURSE EXAMINATION: Computed tomography (CT) radiation treatment plan [...] Praveen Spann on 01/29/2015 1:48 PM . I, Dr. BEVERLY MADSEN M.D. have personally reviewed and interpreted thisexamination/study. This report was electronically signed by BEVERLY MADSEN M.D. on 01/29/20152:29 PM . Praveen Atkinson MD CT ORDERABLES * PATHOLOGY REPORTS - [facility] (06/18/2009 3:31 PM CDT) 06/18/2009 3:31 PM CDT Narrative [facility] - 06/18/2009 3:31 PM CDT Chris Mina MD LAB - PATHOLOGY/CYTO LOGY ORDERABLES Performing Organization Address [facility] de Phone Number [facility] * LAB MICROBIOLOGY - [facility] (06/07/2009 5:04 AM INTAKE NURSE) Only the most recent of2 resultswithin the time period is included. 06/07/2009 5:04 AM INTAKE NURSE [facility] - 06/07/2009 5:04 AM INTAKE NURSE Chris Mina MD LAB - MICROBIOLOGY O RDERABLES Performing Organization Address [facility] Co de Phone Number [facility] Care Teams Railroad Brake Operator Relationship Specialty Start Date End Date Flor Garcia MD [address] [place] [address] PCP - General Family Medicine 09/21/23
--- OUTSIDE RECORDS SUMMARY | 2024-05-08 14:53 | XMS_ITS ---
Author Organization [facility] Address [address] [facility] [address] [place] [address] Care Team Providers Care Sewage Plant Supervisor Name Role Phone zzzzMigration, zzzzProvider Unavailable Unav ailable REASON FOR VISIT EMR-Kraig Encounters Encounter Location Date Provider Diagnosis [facility] [address] [facility] [address] [place] [address] 01/16/2023 zzzzProvider zzzzMigration Plan Of Treatment No Information Progress Notes * Shameka KELSEY LDOB: [birth year] (73 yo F)Acc No.[id number]:01/16/2023 Patient: Shameka TAN :1950 A ge:72 Y S ex:Female [address] [place], [address] Subjective: * Chief Complaints: * E MR-Kraig * Medical History: * Surgical History: * Hospitalization/Major Diagno stic Procedure: * Medications: Objective: * Vitals: * Physical Examination: Assessment: Plan: * Treatment: * Procedure Codes: * * Date:
--- OUTSIDE RECORDS SUMMARY | 2024-05-08 14:53 | XMS_ITS | Continuity of Care Document ---
Author Organization [facility] Address [address] [place] [address] Phone Care Team Providers Care Advisory Services Associate Name Role Phone DoseRamakrishna san DPM Unavailable Unavailable Allergies, Adverse Reactions, Alerts Substance Reaction Status Criticality No Known Allergies Active No Inform ation Procedures Procedure Date X-ray exam foot, minimum 3 views 2023 Global/Postop followup visit Correction Hallux Rigidus W/ Cheilectomy W/ Implant X-ray exam foot, minimum 3 views 2022 Office/outpatient visit,[facility], [facility] 2022 Advance Directives Directive Yes / No Effective Date File Name No Information Encounters Encounter Description Practice Location Reason(s) For Visit Diagnoses Date Provider Providers Copied on Encounter [facility], [address] [place] [address], [id number], [place] tel:[phone] [facility] Follow Up of right foot (chief complaint) Pain in right footHallux rigidus, right foot 4 Kayla Durbin. [address] [place] [address], [place] [address], [place], [place], [id number] , [place]. tel:[phone] Referring Provider: Ramakrishna Arnold, [address] [place] [address] Suite [facility], [place], [address] . tel:[phone] [facility], [address] [place] [address], [id number], [place] tel:[phone] [facility] No Information 4 Doser Ramakrishna. [address], [place] [address], [place], [place], [id number] , . tel:[phone] Referring Provider: Ramakrishna Arnold, [address], [place], [address] . tel:[phone] [facility], [address], [id number], tel:[phone] [facility] Pain in right foot 4 Doser Ramakrishna. [address], [place] [address], [place], [place], [id number] , [place]. tel:[phone] Office/outpat ient visit,[facility], [address], [id number], tel:[phone] [facility] [employer] [facility] Unsuccessful toe joint surgery (chief complaint) Pain in right footHallux rigidus, right foot 3 Doser Ramakrishna. [address], [place] [address], [place], [place], [id number] , . tel:[phone] Family History Family Member Type Diagnosis Age At Onset Mother Problem (finding) Osteoporosis Father Problem (finding) Alcoholism Father Problem (finding) Heart Disease Father Problem (finding) Cancer, unknown Father Problem (finding) Diabetes Payers Payer name Insurance type Covered republican ID Minhdougie kaileycheyenne(s) [employer] CI [id number] Social History Type Description Quantity Date Captured [...]
--- OUTSIDE RECORDS SUMMARY | 2024-05-08 14:53 | XMS_ITS | Encounter Summary ---
Author Organization [facility] Address [address] [place] [address] Care Team Providers Care Geospatial Applications Developer Name Role Phone Rozina Packer MD Primary Care Provider Flor Garcia MD Primary Care Provider [phone] Encounter Details Date Type Department Care Team (Late Contact Info) Description 12/10/2022 Lab Requisition [facility] [address] [place] [id number] Fay Araujo MD [address] [place] [address] [place] [address] Neoplasm of uncertain behavior of [...] Description 12/18/2024 8:30 AM CDT Appointment [facility] [address] [place] [address] Praveen [place] MD [address] [place] [address] 12/18/2024 10:00 AM CDT Appointment [facility] [address] [place] [address] Praveen [place] MD [address] [place] [address] documented as of this encounter Procedures Procedure Name Priority Date/Time Associated Diagnosis Comments DERMATOPATHOLOGY Routine 12/10/2022 3:33 AM CDT Neoplasm of uncertain behavior of skin Other specified erythematous conditions documented in this encounter Results * DERMATOPATHOLOGY (12/10/2022 3:33 AM CDT) Case Report Dermatopathology Report Case: [id number] Authorizing Provider: Fay Araujo MD Collected: 12/10/2022 03:33 AM Ordering Location: [facility] Received: 12/11/2022 12:44 PM Pathologist: Nelli Rodriguez MD Specimen: Skin, left jawline 3 4:27 PM CDT DERMATOPATHOLOGY LABORATORY Final [...] The specimen is serially sectioned and a dealer compliance representative section is submitted in cassette 1. Jar 1. 3 4:27 PM CDT DERMATOPATHOLOGY LABORATORY Microscopic Description [...] characteristic determined by the Dermatopathology Laboratory at [facility], directed by Dr. Kyle Anthony. These tests need not be, and therefore are not, approved by the [place] Food and Drug Administration. The tests are used for clinical purposes. Billing Codes Specimen Charges Stain Charges 73275 1 3 4:27 PM CDT DERMATOPATHOLOGY LABORATORY Embedded Images 3 4:27 PM CDT DERMATOPATHOLOGY LABORATORY Pathology/Cytolo gy TISSUE SPECIMEN FROM SKIN / Unknown 12/10/2022 3:33 AM CDT 12/11/2022 12:44 PM CDT Fay Araujo MD LAB - PATHOLOGY/CYTO LOGY ORDERABLES DERMATOPATHOLOGY LABORATORY [facility] - Department of Dermatology [facility] [address] [place] [address], [address] [phone] documented in this encounter Visit Diagnoses Diagnosis Neoplasm of uncertain behavior of skin Other specified erythematous conditions documented in this encounter Care Teams Geospatial Applications Developer Relationship Specialty Start Date End Date Rozina Packer MD [address] [place] [address] PCP - General Family Medicine 09/28/19 09/20/23 Flor Garcia MD [address] [place] [address] PCP - General Family Medicine 09/21/23 documented as of this encounter
--- OUTSIDE RECORDS SUMMARY | 2024-05-08 14:53 | XMS_ITS | Data Portability ---
Author Organization [facility], Main Office Address [address] [place] [address] Assessment No assessment recorded. Plan of Treatment Reminders Order Date Submit Date Provider Last Modified By Organization Details Last Modified Time Details Appointments None recorded. Lab culture, urine + sensitivity 2023 024 [email or web address] 2 [facility], [address] [place], [address], 4 10:01:42 urinalysis, dipstick 2023 024 [email or web address] [facility] [address] , [address], [place], [address], 4 10:34:35 Referral gastroenter ologist referral 2022 023 [email or web address] 3 Steve Candelario MD, [address] [facility] [address], [place], [address], 3 09:18:16 Procedures None recorded. Surgeries None recorded. Imaging MRI, lumbar spine, w/o contrast - *Please call pt to schedule* 2022 023 [email or web address] [address] [facility], [address], [address], [place], [address], 3 10:01:01 Medication Orders Medrol (Fan) 4 mg tablets in a dose pack 2022 023 [id number], [address], [place], [place], [id number], 4 13:59:36 cyclobenzap rine 10 mg tablet 2022 023 [facility] #36969, [address], [place], [place], [id number], 4 13:59:01 phenazopyri dine 200 mg tablet 2023 024 [facility] #03234, [address], [place], [place], [id number], 4 14:00:04 ciprofloxac in 500 mg tablet 2023 024 [facility] #39455, [address] [facility] [address] [facility], [place], [place], [id number], 4 13:58:52 ondansetron 4 mg disintegrat ing tablet 2023 024 [facility] #51511, [address] [facility] [address] [place] [address], [id number], 4 14:11:29 ciprofloxac in 500 mg tablet 2023 024 [facility] #60804, [address] [facility] [address] [place] [address], [id number], 4 14:09:18 Patient TargetsNo targets recorded. Patient Instructions Encounter Date Encounter Id Patient Instructions Last Modified By Organization Details Last Modified Time 08/18/2023 [id number] advised cutting back on Afrin , use her chlortrimeton otc, breathe in steam in shower [email or web address] Not available 08/18/2023 14:16:50 Reason for Referral Hot Roll Laminator Referral for Family history of cancer of colon Referring Physician: Rozina Packer, Family Medicine, Encounter Date: 10/29/2022 Results Created Date Observation Date Name Description Value Unit Range Abnormal Flag Note LastModifiedBy Organization Detail LastModifiedTime 06/04/19 22 06/04/2021 VITAM IN D,25- OH,TO SHEA,I A vitamin D,25-oh,tota l,ia 31 NG/mL 30-100 normal Vitam in D Statu s 25-OH Vitam in D: Defic iency : <20 ng/mL Insuf ficie ncy: 20 - 29 ng/mL Optim al: > or = 30 ng/mL For 25-OH Vitam in D testi ng on patie nts on D2-jamison pplem entat ion and patie nts for whom quant itati on of D2 and D3 fract ions is requi red, the [facility] eD(TM ) 25-OH VIT D, (D2,D 3), LC/MS /MS is recom roberta d: order code 06307 (prateek ents >2yrs ). See Note 1 Note 1 For addit ional infor harrison ness e refer to http: //[facility] sara [place] gnost ics.c om/fa q/FAQ 199 (This link is being provi ded for infor hillary bradley/ josseline cazares purpo ses only. ) Not Available [employer] [address], [address], 06/04/2021 05:31:00 06/04/19 22 06/04/2021 COMPR EHENS KAVITHA METAB OLIC PANEL glucose 98 mg/dL 65-99 normal Fasti ng refer ence inter janeth Not Available [employer] [address], [address], 06/04/2021 05:30:59 06/04/19 22 06/04/2021 COMPR EHENS KAVITHA METAB OLIC PANEL urea nitrogen (BUN) 18 mg/dL 7-25 normal Not Available [facility] [address], [address], 06/04/2021 05:30:59 06/04/19 22 06/04/2021 COMPR EHENS KAVITHA METAB OLIC PANEL creatinine 0.70 mg/dL 0.60-0 .93 normal For patie nts >49 years of age, the refer ence limit for Creat inine is appro ximat shea 13% highe r for peopl e ident ified as Afric an-Am wilberto n. Not Available [address] [address] [place], [address], 06/04/2021 05:30:59 06/04/19 22 06/04/2021 COMPR EHENS KAVITHA METAB OLIC PANEL eGFR non-afr. qatari 88 mL/mi n/1.7 3m2 > or = 60 normal Not Available [address], [address], 06/04/2021 05:30:59 06/04/19 22 06/04/2021 COMPR EHENS KAVITHA METAB OLIC PANEL eGFR 102 mL/mi n/1.7 3m2 > or = 60 normal Not Available [address], [address], 06/04/2021 05:30:59 06/04/19 22 06/04/2021 COMPR EHENS KAVITHA METAB OLIC PANEL BUN/creatini ne ratio not applic able (calc ) 6-22 Not Available [address], [address], 06/04/2021 05:30:59 06/04/19 22 06/04/2021 COMPR EHENS KAVITHA METAB OLIC PANEL sodium 142 mmol/ L 135-14 6 normal Not Available [address], [address], 06/04/2021 05:30:59 06/04/19 22 06/04/2021 COMPR EHENS KAVITHA METAB OLIC PANEL potassium 4.6 mmol/ L 3.5-5. 3 normal Not Available [address], [address], 06/04/2021 05:30:59 06/04/19 22 06/04/2021 COMPR EHENS KAVITHA METAB OLIC PANEL chloride 105 mmol/ L 98-110 normal Not Available [address], [address], 06/04/2021 05:30:59 06/04/19 22 06/04/2021 COMPR EHENS KAVITHA METAB OLIC PANEL carbon dioxide 30 mmol/ L 20-32 normal Not Available [address], [address], 06/04/2021 05:30:59 06/04/19 22 06/04/2021 COMPR EHENS KAVITHA METAB OLIC PANEL calcium 9.4 mg/dL 8.6-10 .4 normal Not Available [address], [address], 06/04/2021 05:30:59 06/04/19 22 06/04/2021 COMPR EHENS KAVITHA METAB OLIC PANEL protein, total 6.3 g/dL 6.1-8. 1 normal Not Available [address], [address], 06/04/2021 05:30:59 06/04/19 22 06/04/2021 COMPR EHENS KAVITHA METAB OLIC PANEL albumin 4.3 g/dL 3.6-5. 1 normal Not Available [address], [address], 06/04/2021 05:30:59 06/04/19 22 06/04/2021 COMPR EHENS KAVITHA METAB OLIC PANEL globulin 2.0 g/dL_ (calc ) 1.9-3. 7 normal Not Available [address], [address], 06/04/2021 05:30:59 06/04/19 22 06/04/2021 COMPR EHENS KAVITHA METAB OLIC PANEL albumin/glob ulin ratio 2.2 (calc ) 1.0-2. 5 normal Not Available [facility] [place] [address], [place], [address], 06/04/2021 05:30:59 06/04/19 22 06/04/2021 COMPR EHENS KAVITHA METAB OLIC PANEL bilirubin, total 0.4 mg/dL 0.2-1. 2 normal Not Available [address], [address], 06/04/2021 05:30:59 06/04/19 22 06/04/2021 COMPR EHENS KAVITHA METAB OLIC PANEL alkaline phosphatase 65 U/L 37-153 normal Not Available [address], [address], 06/04/2021 05:30:59 06/04/19 22 06/04/2021 COMPR EHENS KAVITHA METAB OLIC PANEL AST 20 U/L 10-35 normal Not Available [address], [address], 06/04/2021 05:30:59 06/04/19 22 06/04/2021 COMPR EHENS KAVITHA METAB OLIC PANEL ALT 16 U/L 6-29 normal Not Available [address], [address], 06/04/2021 05:30:59 06/04/19 22 06/04/2021 LIPID PANEL , STAND REJI cholesterol, total 216 mg/dL <200 high Not Available [address], [address], 06/04/2021 05:30:59 06/04/19 22 06/04/2021 LIPID PANEL , STAND REJI HDL cholesterol 86 mg/dL > or = 50 normal Not Available [address], [address], 06/04/2021 05:30:59 06/04/19 22 06/04/2021 LIPID PANEL , STAND REJI triglyceride s 114 mg/dL <150 normal Not Available [facility] [address] [place], [address], 06/04/2021 05:30:59 06/04/19 22 06/04/2021 LIPID PANEL , STAND REJI LDL-choleste rol 108 mg/dL _(mohsen c) high Refer ence range : <100 Gerry able range <100 mg/dL for prima ry preve ntion ; <70 mg/dL for patie nts with CHD or diabe tic patie nts with > or = 2 CHD risk facto rs. LDL-C is now calcu lated using the Zohra n-Hop kins calcu oscar n, which is a valid ated novel edouardo d jaleni jaron otero r accur acy than the Fried canelo equat ion in the estim ation of LDL-C . Zohra zepeda SS et al. DIANA. 2013; 310(1 9): 2061- 2068 (http ://ed ucati on.[employer]. com/f aq/FA Q164) Not Available [facility] [address], [place], [address], 06/04/2021 05:30:59 06/04/19 22 06/04/2021 LIPID PANEL , STAND REJI chol/HDLC ratio 2.5 (calc ) <5.0 normal Not Available [facility] [address], [place], [address], 06/04/2021 05:30:59 06/04/19 22 06/04/2021 LIPID PANEL , STAND REJI non HDL cholesterol 130 mg/dL _(mohsen c) <130 high For patie nts with diabe fredi plus 1 major ASCVD risk facto r, treat ing to a non-H DL-C goal of <100 mg/dL (LDL- C of <70 mg/dL ) is consi dered a thera peuti c optio n. Not Available [facility] [address] [place], [address], 06/04/2021 05:30:59 04/03/19 23 04/03/2022 COMPR EHENS KAVITHA METAB OLIC PANEL sodium 139 mmol/ L 137-14 5 Not Available [facility] (Lab) [address] [place], [address], 04/03/2022 20:33:53 04/03/19 23 04/03/2022 COMPR EHENS KAVITHA METAB OLIC PANEL potassium 4.3 mmol/ L 3.5-5. 1 Not Available [facility] (Lab) [address] [place], [address], 04/03/2022 20:33:53 04/03/19 23 04/03/2022 COMPR EHENS KAVITHA METAB OLIC PANEL chloride 103 mmol/ L 98-107 Not Available [facility] (Lab) [address] [place], [address], 04/03/2022 20:33:53 04/03/19 23 04/03/2022 COMPR EHENS KAVITHA METAB OLIC PANEL carbon dioxide 28 mmol/ L 22-30 Not Available [facility] (Lab) [address] [place], [address], 04/03/2022 20:33:53 04/03/19 23 04/03/2022 COMPR EHENS KAVITHA METAB OLIC PANEL anion gap 12.3 mmol/ L 14-22 low Not Available [facility] (Lab) [address] [place], [address], 04/03/2022 20:33:53 04/03/19 23 04/03/2022 COMPR EHENS KAVITHA METAB OLIC PANEL glucose 100 mg/dL 70-99 high Not Available [facility] (Lab) [address] [place], [address], 04/03/2022 20:33:53 04/03/19 23 04/03/2022 COMPR EHENS KAVITHA METAB OLIC PANEL BUN 13 mg/dL 8-19 Not Available [facility] (Lab) [address] [place], [address], 04/03/2022 20:33:53 04/03/19 23 04/03/2022 COMPR EHENS KAVITHA METAB OLIC PANEL creatinine 0.75 mg/dL 0.66-1 .25 Not Available [facility] (Lab) [address] [place], [address], 04/03/2022 20:33:53 04/03/19 23 04/03/2022 COMPR EHENS KAVITHA METAB OLIC PANEL GFR >60 Refer ence Range : Iraan ge GFR Healt hy Adult : >60 mL/mi n/1.7 3 m2 Chron ic Kidne y Disea se: 15-60 mL/mi n/1.7 3 m2 Kidne y Failu re: <15/m L/min /1.73 m2 www.n iddk. nih.g ov The MDRD study equat ion has not been valid ated in child cleve <18 years of age; pregn ant women ; the elder ly >85 years of age; or in some racia l or ethni c subgr oups, such as [facility] nics. Outsi de the valid ated rozina eters , estim ated GFR is less accur ate, requi ring clini mohsen judgm ent on a case- by-ca se basis . Clini mohsen inter preta tion for other races and ages must be made by the clini starla. The MDRD study equat ion has not been valid ated for the evalu ation of serum creat inine relat ed to nutri figueroa l statu s or medic ation usage . For perso ns <18 years of age, a pedia tric GFR calcu lator is avail able on the F websi te: https ://beverly wolf.mandi katz.o rg/pr ofess ional s/kdo qi/gf r_cal culat or Not Available [facility] (Lab) [address] [place], [address], 04/03/2022 20:33:53 04/03/19 23 04/03/2022 COMPR EHENS KAVITHA METAB OLIC PANEL alkaline phosphatase 75 U/L 38-126 Not Available [facility] (Lab) [address] [place], [address], 04/03/2022 20:33:53 04/03/19 23 04/03/2022 COMPR EHENS KAVITHA METAB OLIC PANEL alanine aminotransfe rase 27 U/L 0-35 Not Available [facility] (Lab) [address] [place], [address], 04/03/2022 20:33:53 04/03/19 23 04/03/2022 COMPR EHENS KAVITHA METAB OLIC PANEL aspartate aminotransfe rase 33 U/L 15-37 Not Available [facility] (Lab) [address] [place], [address], 04/03/2022 20:33:53 04/03/19 23 04/03/2022 COMPR EHENS KAVITHA METAB OLIC PANEL bilirubin, total 0.70 mg/dL 0.20-1 .30 Not Available [facility] (Lab) [address] [place], [address], 04/03/2022 20:33:53 04/03/19 23 04/03/2022 COMPR EHENS KAVITHA METAB OLIC PANEL calcium 9.4 mg/dL 8.4-10 .2 Not Available [facility] (Lab) [address] [place], [address], 04/03/2022 20:33:53 04/03/19 23 04/03/2022 COMPR EHENS KAVITHA METAB OLIC PANEL total protein 6.9 g/dL 6.3-8. 2 Not Available [facility] (Lab) [address] [place], [address], 04/03/2022 20:33:53 04/03/19 23 04/03/2022 COMPR EHENS KAVITHA METAB OLIC PANEL albumin 4.3 g/dL 3.0-4. 4 Not Available [facility] (Lab) [address] [place], [address], 04/03/2022 20:33:53 04/03/19 23 04/03/2022 COMPR EHENS KAVITHA METAB OLIC PANEL globulin 2.6 g/dL 2.6-4. 2 Not Available [facility] (Lab) [address] [place], [address], 04/03/2022 20:33:53 04/03/19 23 04/03/2022 COMPR EHENS KAVITHA METAB OLIC PANEL A/G ratio 1.7 ratio 1.0-2. 0 Not Available [facility] (Lab) [address] [place], [address], 04/03/2022 20:33:53 04/03/19 23 04/03/2022 LIPID PANEL cholesterol 263 mg/dL 140-19 9 high NIH KANDICE NSUS RECOM MENDA TION FOR CECILIA STERO L: ADULT CHILD LOW RISK: <200 <170 BORDE RLINE : <200- 239 ----- HIGH RISK: >240 >200 Not Available [facility] (Lab) [address] [place], [address], 04/03/2022 20:33:32 04/03/19 23 04/03/2022 LIPID PANEL triglyceride s 158 mg/dL 0-150 high NIH KANDICE NSUS REPOR T RECOM MENDA TION FOR TRIGL YCERI MIL: ADULT CHILD LOW RISK: <150 ----- BODER LINE: 150-1 99 ----- HIGH RISK: >200 ----- Not Available [facility] (Lab) [address] [place], [address], 04/03/2022 20:33:32 04/03/19 23 04/03/2022 LIPID PANEL HDL cholesterol 92 mg/dL 40- Not Available [facility] (Lab) [address] [place], [address], 04/03/2022 20:33:32 04/03/19 23 04/03/2022 LIPID PANEL LDL cholesterol, calculated 139 mg/dL 0-130 high NIH KANDICE NSUS REPOR T RECOM MENDA TIONS FOR LDL: ADULT CHILD LOW RISK <130 <110 (OPTI MAL LDL) <100 ----- BORDE RLINE : 130-1 59 ----- HIGH RISK: >160 >130 A TRIGL YCERI DE RESUL T >400 INVAL IDATE S THE CALCU LATIO N FOR LDL FRACT IONAT ION - THE LDL RESUL T WILL NOT BE REPOR JUDSON. Not Available [facility] (Lab) [address] [place], [address], 04/03/2022 20:33:32 05/20/19 24 05/20/2023 urina lysis , dipst ick Leukocytes (reference range: negative ethan/ l) Negati ve Not Available [address], [place], [address], 05/20/2023 10:27:55 05/20/19 24 05/20/2023 urina lysis , dipst ick Nitrite (reference rage: negative mg/dl) negati ve Not Available [address], [place], [address], 05/20/2023 10:27:55 05/20/19 24 05/20/2023 urina lysis , dipst ick Urobilinogen (reference range: 0.2-1 mg/dl) 0.2 Not Available [address], [place], [address], 05/20/2023 10:27:55 05/20/19 24 05/20/2023 urina lysis , dipst ick Protein (reference range: negative mg/dl) Negati ve Not Available [address], [place], [address], 05/20/2023 10:27:55 05/20/19 24 05/20/2023 urina lysis , dipst ick pH (reference range: 5-7) 5.5 Not Available [address], [place], [address], 05/20/2023 10:27:55 05/20/19 24 05/20/2023 urina lysis , dipst ick Blood (reference range: negative Prince/ l) Non-He molyze d: Trace Not Available [address], [place], [address], 05/20/2023 10:27:55 05/20/19 24 05/20/2023 urina lysis , dipst ick Specific [place] (reference range: 1.005-1.030) 1.010 Not Available [address], [place], [address], 05/20/2023 10:27:55 05/20/19 24 05/20/2023 urina lysis , dipst ick Ketone (reference range: negative mg/dl) Negati ve Not Available [address], [place], [address], 05/20/2023 10:27:55 05/20/19 24 05/20/2023 urina lysis , dipst ick Bilirubin (reference range: negative mg/dl) Negati ve Not Available [address], [place], [address], 05/20/2023 10:27:55 05/20/19 24 05/20/2023 urina lysis , dipst ick Glucose (reference range: negative mg/dl) Negati ve Not Available [address], [place], [address], 05/20/2023 10:27:55 05/20/19 24 05/20/2023 urina lysis , dipst ick Appearance Slight ly Cloudy Not Available [address], [place], [address], 05/20/2023 10:27:55 05/20/19 24 05/20/2023 urina lysis , dipst ick Color Yellow Not Available [address], [place], [address], 05/20/2023 10:27:55 04/11/19 22 04/11/2021 imagi ng/rai pace tic resul t No observ ation record ed. [id number] [address], [place], [address], 05/27/2022 15:41:43 04/03/19 23 04/03/2022 bone densi ty No observ ation record ed. [id number] [facility] [address] [place], [address], 05/27/2022 15:41:43 04/03/19 23 04/03/2022 bone densi ty No observ ation record ed. [id number] [facility] [address] [place], [address], 05/27/2022 15:41:43 04/03/19 DEXA, axial skele ton [facility] [address] [place] [address] [phone] Patien t Name: RUBEN ARIAS Access ion #: [id number] Sex: F : 1950 0 Locati on: [place]2 Attend ing Physic sharon: KAL IB, RUNDA Orderi ng Physic sharon: KAL IB, RUNDA Exam Date: 04/03/19 11:17 AM Exam Name: XR DEXA AXIAL/ HIP/PE LVIS/S PINE Admitt ing Diagno sis(es ): RADIOL OGY REPORT - FINAL EXAM: XR DEXA AXIAL/ HIP/PE LVIS/S PINE HISTOR Y: at risk osteop orosis 71-yea r-old female with osteop orosis screen ing. COMPAR LEONOR: None availa ble. TECHNI QUE: Dual energy x-ray of absorp tion examin ation of the left hip and left forear m in AP projec tion was perfor med. FINDIN GS: Left forear m: The radial shaft bone minera l densit y is 0.739 g/cm2 hydrox yapati te, correl ating with a T-scor e of -1.6. Left hip: The total bone minera l densit y is 0.865 g/cm2 calciu m hydrox yapati te, correl ating with a T-scor e of -1.1. Page 1 of 2 [facility] Name: RUBEN ARIAS Access ion #: [id number] Sex: F : 1950 0 Exam Date: 04/03/19 11:17 AM Exam Name: XR DEXA AXIAL/ HIP/PE LVIS/S PINE Admitt ing Diagno sis(es ): IMPRES OTILIA: 1. The patien t's left forear m T-scor e is consis tent with osteop enia. 2. The patien t's left hip T-scor e is consis tent with osteop enia. Accord ing to the World Health Organi zation , T-scor e values greate r than -1.0 are normal , values betwee n -1.0 and -2.5 are catego rized as osteop enia, T-scor e of -2.5 or more are catego rized as osteop orosis . Create d and electr onical ly signed by: Samuel rose MD Signed Date: 04/03/19 12:05 PM (CT) Dictat ed by: Samuel rose MD (CT) (CT) Page 2 of 2 [id number] [facility] (Imaging) [address], [place], [address], 05/27/2022 15:41:43 05/25/19 24 05/25/2023 MAMMO , scree mio, digit al, bilat eral No observ ation record ed. [email or web address] [place] [facility] [address], [place], [address], 05/26/2023 11:48:33 Result Notes None recorded. Problems Name Problem SNOMED Code Status Onset Date Resolution Date Notes Provider Name and Address Organization Details Recorded Time Mammography abnormal 593442091 Active 2021 Not Available [facility] 3 15:40:51 Fluid level behind tympanic membrane Active Not Available [facility] 3 15:40:51 Depressive disorder 45418679 Active Not Available [facility] 3 15:40:51 Seasonal allergy 249582994 Active Not Available [facility] 3 15:40:52 Foot pain 95915112 Active Not Available [facility] 3 15:40:52 Anxiety 70138647 Active Not Available [facility] 3 15:40:52 Hemorrhoids 10837260 Active Not Available [facility] 3 15:40:52 Posterior rhinorrhea 88058230 Active Not Available [facility] 3 15:40:52 Acute sinusitis 71869634 Active 2022 Rozina Packer MD [address], [place] [address], [place], [address] , [email or web address] [facility] 3 10:31:28 Spinal stenosis of lumbar region 53402533 Active 2022 Rozina Packer MD [address], [place], [address] , [email or web address] [facility] [employer] [facility] 3 16:58:47 Lesion of face 772633977 Active 2022 Rozina Packer MD [address], [place], [address] , [facility] [employer] [facility] [employer] [facility] 3 17:01:52 Increased frequency of urination 391645064 Active 2023 EMILI Meadows [address], [place], [address] , [facility] [employer] [facility] 4 10:27:12 Nausea 938758620 Active 2023 EMILI Meadows [address], [place], [address] , [email or web address] 4 14:10:34 Problem Notes None recorded. Procedures Surgical History Date Name Laterality Status Provider Name and Address Organization Details Recorded Time screening mammography completed Rowena Patino RN [facility] [employer] [facility] 05/26/2023 11:48:09 Imaging Results Imaging Date Name Status LastModified by [facility] Details LastModified Time 04/03/2022 bone density completed [id number] 026 [facility] Orders [address] [place], [address], 05/27/2022 15:41:43 04/03/2022 bone density completed [id number] 026 [facility] Orders [address] [place], [address], 05/27/2022 15:41:43 04/03/2022 DEXA, axial skeleton completed [id number] [facility] (Imaging) [address] [place], [address], 05/27/2022 15:41:43 04/11/2021 imaging/diagno stic result completed [id number], [place], [address], 05/27/2022 15:41:43 05/25/2023 MAMMO, screening, digital, bilateral completed [email or web address] [facility] [address], [place], [address], 05/26/2023 11:48:33 Procedure Notes None recorded. Medical Equipment None Reported. Allergies No known drug allergies Medications Name Sig Start Date Stop Date Status Note LastModified by Organization Details LastModified Time cyclobenz aprine 10 mg tablet TAKE 1 TABLET BY MOUTH EVERY DAY AT BEDTIME 08/17 completed Not Available Not Available Not Available prednison e 10 mg tablet active Not Available Not Available Not Available doxycycli ne hyclate 100 mg capsule TAKE 1 CAPSULE BY MOUTH EVERY 12 HOURS UNTIL GONE 08/17 completed Not Available Not Available Not Available cefuroxim e axetil 250 mg tablet active Not Available Not Available Not Available triamcino lone acetonide 0.5 % topical cream APPLY A THIN LAYER TO THE AFFECTED AREA(S) BY TOPICAL ROUTE 2 TIMES PER DAY active Not Available Not Available No t Available atorvasta tin 10 mg tablet TAKE 1 TABLET BY MOUTH EVERY DAY 03/16 completed muscles ache Not Available Not Available Not Available azithromy charles 250 mg tablet TAKE 2 TABLETS (500 MG) BY ORAL ROUTE ONCE DAILY FOR 1 DAY THEN 1 TABLET (250 MG) BY ORAL ROUTE ONCE DAILY FOR 4 DAYS 03/16 completed Not Available Not Available Not Available fluconazo le 150 mg tablet Take 1 tablet every day by oral route for 1 day. 01/14 completed Not Available Not Available Not Available hydrocodo ne 5 mg-acetam inophen 325 mg tablet 01/14 completed Not Available Not Available Not Available phenazopy ridine 200 mg tablet TAKE 1 TABLET BY MOUTH THREE TIMES DAILY FOR 2 DAYS 08/17 completed Not Available Not Available Not Available ondansetr on HCl 4 mg tablet TAKE 1 TABLET BY MOUTH THREE TIMES DAILY NEEDED FOR NAUSEA active Not Available Not Available No t Available Anucort-H C 25 mg supposito ry Insert 1 supposit ory every day by rectal route for 14 days. 05/13 completed Not Available Not Available Not Available ciproflox acin 500 mg tablet TAKE 1 TABLET BY MOUTH EVERY 12 HOURS FOR 10 DAYS active Not Available Not Available No t Available sulfameth oxazole 800 mg-trimet hoprim 160 mg tablet TAKE 1 TABLET BY MOUTH TWICE DAILY 03/16 completed Not Available Not Available Not Available ketorolac 10 mg tablet 12/22 completed Not Available Not Available Not Available meloxicam 7.5 mg tablet TAKE TABLET BY MOUTH EVERY DAY active Not Available Not Available No t Available oxycodone -acetamin ophen 5 mg-325 mg tablet TAKE 1 TABLET BY MOUTH EVERY 6 HOURS NEEDED PAIN 08/17 completed Not Available Not Available Not Available terbinafi ne HCl 250 mg tablet 01/14 completed Not Available Not Available Not Available alprazola m 0.5 mg tablet 12/22 completed Not Available Not Available Not Available alprazola m 0.25 mg tablet TAKE 1 TABLET BY MOUTH THREE TIMES DAILY NEEDED 2023 active Not Available Not Available Not Avai lable prednisol one acetate 1 % eye drops,jacklyn pension INSTILL 1 DROP TO LEFT EYE FOUR TIMES DAILY FOR 7 DAYS 03/16 completed Not Available Not Available Not Available estradiol 1 mg tablet Take 1 tablet by mouth once daily active Not Available Not Available No t Available triamcino lone acetonide 0.1 % dental paste 02/22 completed Not Available Not Available Not Available Flagyl 500 mg tablet Take 1 tablet twice a day by oral route for 10 days. active Not Available Not Available No t Available doxycycli ne monohydra te 100 mg capsule TAKE 1 CAPSULE BY MOUTH TWICE DAILY 03/16 completed Not Available Not Available Not Available cephalexi n 500 mg capsule TK 1 C PO BID FOR 10 DAYS 01/01 completed Not Available Not Available Not Available tobramyci n 0.3 % eye drops active Not Available Not Available No t Available Alrex 0.2 % eye drops,jacklyn pension SHAKE LQ AND INT 1 GTT IN OU Q 4 H PRN 05/13 completed Not Available Not Available Not Available fluoxetin e 10 mg capsule Take 2 capsules every day by oral route for 90 days. active Not Available Not Available No t Available mupirocin calcium 2 % topical cream RIANNA AA BID TO TID FOR 10 DAYS 06/07 completed Not Available Not Available Not Available Vivelle-D ot 0.05 mg/24 hr transderm al patch APPLY ONE PATCH TWICE WEEKLY 12/29 completed Not Available Not Available Not Available monteluka st 10 mg tablet Take 1 tablet every day by oral route for 30 days. active Not Available Not Available No t Available hydrocodo ne 5 mg-acetam inophen 500 mg tablet 12/22 completed Not Available Not Available Not Available mupirocin 2 % topical ointment APPLY TOPICALL Y TO THE AFFECTED AREA THREE TIMES DAILY FOR 2 WEEKS active Not Available Not Available No t Available azelastin e 137 mcg (0.1 %) nasal spray USE 1 SPRAY IN EACH NOSTRIL EVERY 12 HOURS 08/17 completed Not Available Not Available Not Available Estrace 0.5 mg tablet Take 0.5 tablets every day by oral route. 01/14 completed Not Available Not Available Not Available Cipro HC 0.2 %-1 % ear drops,jacklyn pension INSTILL 3 DROPS INTO AFFECTED EAR(S) BY OTIC ROUTE EVERY 12 HOURS active Not Available Not Available No t Available levofloxa charles 500 mg tablet Take 1 tablet every 24 hours by oral route. 06/07 completed Not Available Not Available Not Available methylpre dnisolone 4 mg tablets in a dose pack FOLLOW PACKAGE DIRECTIO NS 08/17 completed Not Available Not Available Not Available SSD 1 % topical cream 02/22 completed Not Available Not Available Not Available ondansetr on 4 mg disintegr ating tablet DISSOLVE 1 TABLET ON THE TONGUE THREE TIMES DAILY NEEDED active Not Available Not Available No t Available fluoxetin e 20 mg capsule active Not Available Not Available Not Available fluticaso ne propionat e 50 mcg/actua tion nasal spray,jacklyn pension SHAKE LIQUID AND USE 1 SPRAY IN EACH NOSTRIL TWICE DAILY 08/17 completed Not Available Not Available Not Available amoxicill in 875 mg-potass ium clavulana te 125 mg tablet TK 1 T PO Q 12 H FOR 10 DAYS 08/17 completed Not Available Not Available Not Available oxycodone 5 mg tablet 12/29 completed Not Available Not Available Not Available escitalop valeriano 10 mg tablet Take 1 tablet every day by oral route. active Not Available Not Available No t Available ezetimibe 10 mg tablet TAKE 1 TABLET BY MOUTH EVERY DAY active Not Available Not Available No t Available Restasis 0.05 % eye drops in a dropperet te Instill 1 drop every day by ophthalm ic route for 30 days. active Not Available Not Available No t Available Systane (propylen e glycol) 0.4 %-0.3 % eye drops 1 DROP TID 2014 active OTC Not Available Not Available Not Avai lable ibandrona te 150 mg tablet TAKE 1 TABLET BY MOUTH EVERY MONTH active Not Available Not Available No t Available Boostrix Tdap 2.5 Lf unit-8 mcg-5 Lf/0.5 mL intramusc ular syringe ADM 0.5ML IM UTD 06/07 completed Not Available Not Available Not Available metronida zole 1 % topical gel APPLY PEA SIZED AMOUNT EXTERNAL LY TO THE AFFECTED AREA EVERY DAY FOR ROSACEA 08/17 completed Not Available Not Available Not Available cholecalc iferol (vitamin D3) 1,250 mcg (50,000 unit) capsule TAKE 1 CAPSULE BY MOUTH EVERY WEEK UNTIL GONE active Not Available Not Available No t Available diclofena c 1 % topical gel active Not Available Not Available Not Available azelastin e 205.5 mcg (0.15 %) nasal spray active PRN Not Available Not Available Not Available Halflytel y-Bisacod yl w-Flavor Pack 5 mg-210 gram oral kit 12/22 completed Not Available Not Available Not Available sodium,po tassium,m ag sulfates 17.5 gram-3.13 gram-1.6 gram oral soln MIX AND DRINK DIRECTED 08/17 completed Not Available Not Available Not Available Xarelto 10 mg tablet TAKE 1 TABLET BY MOUTH DAILY STARTING 24 HOURS AFTER SURGERY TO PREVENT BLOOD CLOT 08/17 completed Not Available Not Available Not Available Lotemax 0.5 % eye gel drops 05/13 completed Not Available Not Available Not Available Xiidra 5 % eye drops in a dropperet te INSTILL 1 DROP INTO OU BID 12/29 completed Not Available Not Available Not Available Shingrix (PF) 50 mcg/0.5 mL intramusc ular suspensio n, kit 06/07 completed Not Available Not Available Not Available Fluzone High-Dose 0728-2413 (PF) 180 mcg/0.5 mL intramusc ular syringe active Not Available Not Available Not Available Flucelvax Quad (PF) 60 mcg (15 mcg x 4)/0.5 mL IM syringe ADM 0.5ML IM UTD 06/07 completed Not Available Not Available Not Available Fluad Quad (65yr up)(PF) 60 mcg (15 mcg x 4)/0.5mL IM syringe active Not Available Not Available Not Available Vitals Date Recorded Body mass index (BMI) Body height Oxygen saturation Oxygen saturation in Arterial blood by Pulse oximetry Heart rate Body temperature Body weight Systolic blood pressure Diastolic blood pressure Provider Name and Address Organization Details Last Updated DateTime 3 26.8 kg/m2 162.56 cm 98 % 98 % 59 /min 96.2 [degF] 93992.4 1 g 108 mm[Hg] 80 mm[Hg] Not Available [employer] 3 15:40:35 Date Recorded Body weight Body mass index (BMI) Body height Body temperature Heart rate Oxygen saturation Oxygen saturation in Arterial blood by Pulse oximetry Systolic blood pressure Diastolic blood pressure Provider Name and Address Organization Details Last Updated DateTime 3 53451.8 2 g 26.6 kg/m2 162.56 cm 98.1 [degF] 64 /min 98 % 98 % 124 mm[Hg] 72 mm[Hg] Valerie Esquivel MA [facility] 3 16:47:12 Date Recorded Body height Body mass index (BMI) Body weight Body temperature Heart rate Oxygen saturation Oxygen saturation in Arterial blood by Pulse oximetry Respiratory rate Systolic blood pressure Diastolic blood pressure Provider Name and Address Organization Details Last Updated DateTime 4 162.56 cm 26.6 kg/m2 66456.8 2 g 98.3 [degF] 63 /min 97 % 97 % 16 /min 102 mm[Hg] 70 mm[Hg] Ivania Yousif RN [facility] [employer] [facility] 4 14:03:00 Social History None recorded. Functional Status None recorded. Mental Status None recorded. Family History Relationship Description Onset Age of this Age Resolved Age Notes LastModified by Organization Details LastModified Time Father Family history of malignant neoplasm [id number] Not available 05/27/2022 15:40:13 Medical History No medical history recorded. Gynecological HistoryNo gynecological history recorded. Obstetrics History GPAL:G 0 P 0 0 0 0 Immunizations Vaccine Type Date Status Note Provider Nam e and Address Organization Details Recorded Time Influenza, split virus, trivalent, preservative 5 completed Not Available [employer] 05/27/2022 15:41:40 zoster live 2 completed Not Available [facility] 05/27/2022 15:41:40 Pneumococcal conjugate PCV 13 0 completed Not Available [facility] 05/27/2022 15:41:40 Pneumococcal conjugate PCV 13 8 completed Not Available [facility] 05/27/2022 15:41:40 Influenza, high-dose, trivalent, PF 6 completed Not Available [facility] 05/27/2022 15:41:40 Tdap 9 completed Not Available [facility] 05/27/2022 15:41:41 Past Encounters Encounter ID Performer Location Encounter Start Date Encounter Closed Date Diagnosis/Indication Diagnosis SNOMED-CT Code Diagnosis ICD10 Code Diagnosis Note [id number] [facility] [address] [place] [address] 11/15/2020 00:00:00 11/15/2020 16:03:18 [id number] [facility] [place] [address] [place] [address] [place] [address] 04/02/2021 00:00:00 04/02/2021 22:03:51 [id number] [facility] [place] [address] [facility] [place] [address] 03/16/2022 00:00:00 03/16/2022 13:38:12 [id number] Rozina Packer MD [facility] [place] [place] [address] [place] [address] [place] [address] 10/29/2022 16:34:25 10/29/2022 17:19:01 Spinal stenosis of lumbar region 04190924 M48.062 Went to PT no help Lesion of face 558665149 L98.9 See dermatolog ist for skin lesionUse heat and PRID to area it looks cystic Screening for malignant neoplasm of colon 846246169 Z12.11 Family his tory of cancer of colon 904534461 Z80.0 [id number] EMILI Meadows [facility] [address] [facility] [place] [address] 05/20/2023 10:09:27 06/02/2023 09:25:50 Increased frequency of urination 923642769 R35.0 [id number] EMILI Meadows [facility] [address] [facility] [place] [address] 08/18/2023 13:53:03 08/18/2023 14:15:31 Increased frequency of urination 463952057 R35.0 Nausea 889130223 R11.0 Anxiety 63176847 F41.9 Depressive disorder 3548 9007 F32.A Seasonal allergy 3082646 04 J30.2 Spinal varinder nosis of lumbar region 28971715 M48.062 Health Concerns Section Related Observation LastModified by Organization Detai ls LastModified Time None Recorded Concern Status LastModified by Organization Details LastModified Time None Recorded Advance Directives Directive None Recorded Payers Encounter Date Sequence Insurance Name Policy Number Policy Guidry Covered Member ID Guidry Member ID Guarantor Name 10/29/2022 1 [employer] (MEDICARE REPLACEMENT PPO) [id number] 1 Ruben L Polivick [id number] Ruben Polivick 05/20/2023 1 [employer] (MEDICARE REPLACEMENT PPO) [id number] Ruben L Polivick [id number] Ruben Polivick 08/18/2023 1 [employer] (MEDICARE REPLACEMENT PPO) [id number] Ruben L Polivick [id number] Ruben Polivick Notes Date Note Type Note Provider Name and Address Organization Details Recorded Time 10/29/2022 text/html Has a growth on face. Hx of melanoma Is concerned. It just appeared 3 weeks ago. It is not tender.Having low back pain. It is on the left side. Had L3 issues. L4-L5 laminectomy in her 40s. Taking advil and tylenol and no help. Took oxycodone which helped. Has tingling down left leg. Seeing PT and not much help. Has not had MRI. Rozina Packer MD [address] [facility] [address], [place], [address], [employer] [facility] 10/29/2022 20:32:49 08/18/2023 text/html 2 nasal surgeries EMILI Mendoza [address] [facility] [address], [place], [address], [email or web address] [facility] [employer] [facility] 09/07/2023 10:39:57 OBGyn Episode No OBEpisode recorded.
--- OUTSIDE RECORDS SUMMARY | 2024-05-08 14:53 | XMS_ITS | Clinical Summary ---
Author Organization [facility] Address [address] [place] [address] Care Team Providers Care Leather Production Worker Name Role Phone Flor Garcia MD Primary Care Provider [phone] Source Comments [facility],non-owned Affiliates and Associated Physician Practices is amultiple site organization consisting of ambulatory clinics and hospital sitesin [place], [place], [place] and [place]. This disclosure is being madepursuant to the Care Everywhere program and may not contain all information available regarding this patient. 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 [facility] [place] [address] Praveen Atkinson MD Coppens, Jeroen R, MD Meningioma (HCC) (Primary Dx) 03/28/2024 1:00 PM RETAIL OPERATIONS SPECIALIST Office Visit [facility] - Rad/Onc [address] [place] [address] Praveen Atkinson MD Meningioma, recurrent of brain (HCC) (Primary Dx) 03/28/2024 12:58 PM RETAIL OPERATIONS SPECIALIST - 04/29/2024 11:59 PM RETAIL OPERATIONS SPECIALIST Hospital Encounter [facility] - Radiation Oncology [address] [place] [address] Praveen Atkinson MD Discharge Disposition: Home or Self Care 03/28/2024 10:30 AM RETAIL OPERATIONS SPECIALIST - 03/28/2024 12:57 PM RETAIL OPERATIONS SPECIALIST Hospital Encounter [facility] MRI [address] [place] [address] Praveen Atkinson MD Discharge Disposition: Home or Self Care 03/28/2024 Travel from Last 3 Months Immunizations Name Administration Dates Next Due Xenapto primary monoval ent 12+ yr 0.3mL Purple [...] Comments Blood Pressure 134/68 03/28/2024 1:03 PM RETAIL OPERATIONS SPECIALIST Pulse 67 03/28/2024 1:03 PM RETAIL OPERATIONS SPECIALIST Temperature 36.7 C (98 F) 03/28/2024 1:03 PM RETAIL OPERATIONS SPECIALIST Respiratory Rate 18 03/28/2024 1:03 PM RETAIL OPERATIONS SPECIALIST Oxygen Saturation 100% 03/28/2024 1:03 PM RETAIL OPERATIONS SPECIALIST Inhaled Oxygen Concentration - - Weight 75.8 kg (167 lb) 03/28/2024 12:01 PM RETAIL OPERATIONS SPECIALIST Height 162.6 cm (5' 4 ) 03/28/2024 12:01 PM RETAIL OPERATIONS SPECIALIST Body Mass Index 28.67 03/28/2024 12:01 PM RETAIL OPERATIONS SPECIALIST Plan of Treatment Upcoming Encounters Date Type Department Care Team (Late st Contact Info) Description 12/18/2024 8:30 AM CDT Appointment [facility] [address] MRI [address] [place] [address] Praveen Atkinson MD [address] [place] [address] 12/18/2024 10:00 AM CDT Appointment [facility] RAD ONC [address] [place] [address] [facility] [place] [address] Health Maintenance Due Date Last Done Comments [...] 01/09/2017 DEPRESSION SCREENING 03/29/2024 03/28/2024 MEDICARE AWV CALENDAR YEAR 2024 MAMMOGRAM 05/25/2025 05/25/2023, 04/30, [...] BRAIN WWO CONTRAST Routine 03/28/2024 11:46 AM RETAIL OPERATIONS SPECIALIST Meningioma, recurrent of brain (HCC) from Last 3 Months Results * MRI BRAIN WWO CONTRAST PERFUSION (03/28/2024 11:46 AM RETAIL OPERATIONS SPECIALIST) Anatomical Region Laterality Modality Head Magnetic Resonan ce 04/01/2024 1:40 PM RETAIL OPERATIONS SPECIALIST Impressions 04/01/2024 2:02 PM RETAIL OPERATIONS SPECIALIST IMPRESSION: 1. No evidence of disease progression. [...] 04/01/2024 2:02 PM Narrative 04/01/2024 2:02 PM RETAIL OPERATIONS SPECIALIST PROCEDURE: MRI BRAIN WWO CONTRAST, DATE/TIME OF EXAM: 03/28/2024 11:46 AM, LOCATION [facility] INDICATION: D32.0: Meningioma, recurrent of brain [...] DATE/TIME OF EXAM: 03/28/2024 11:46 AM, LOCATION [facility] INDICATION: D32.0: Meningioma, recurrent of brain [...] AETNA MEDICARE ADV AETNA MEDICARE ADV HMO/PPO/PFFS [id number] 03/29/2022-Prese nt [address] [place] [address] Medicare- Managed Care AETNA AETNA MEDICARE ADV PPO/HMO/PFFS [id number] 03/29/2022-Prese nt [address] [place] [address] Medicare- Managed Care UHC MANAGED MEDICARE ADV UHC COMPLETE CHOICE MEDICARE ADV PPO [id number] 03/29/2016-Prese nt [phone] [address] [address] [place] [address] Medicare- Managed Care AETNA AETNA MEDICARE ADV PPO/HMO/PFFS [id number] 03/29/2022-Prese nt [address] [place] [address] Medicare- Managed Care UHC MANAGED MEDICARE ADV UHC COMPLETE CHOICE MEDICARE ADV PPO [id number] 03/29/2016-Prese nt [phone] [address] [address] [place] [address] Medicare- Managed Care AETNA AETNA MEDICARE ADV PPO/HMO/PFFS [id number] 03/29/2022-Prese nt [address] [place] [address] Medicare- Managed Care UHC MANAGED MEDICARE ADV UHC COMPLETE CHOICE MEDICARE ADV PPO [id number] 03/29/2016-Prese nt [phone] [address] [address] [place] [address] Medicare- Managed Care AETNA AETNA MEDICARE ADV PPO/HMO/PFFS [id number] 03/29/2022-Prese nt [address] [place] [address] Medicare- Managed Care UHC MANAGED MEDICARE ADV UHC COMPLETE CHOICE MEDICARE ADV PPO [id number] 03/29/2016-Prese nt [phone] [address] [address] [place] [address] Medicare- Managed Care AETNA AETNA MEDICARE ADV PPO/HMO/PFFS [id number] 03/29/2022-Prese nt [address] [place] [address] Medicare- Managed Care UHC MANAGED MEDICARE ADV UHC COMPLETE CHOICE MEDICARE ADV PPO [id number] 03/29/2016-Prese nt [phone] [address] [address] [place] [address] Medicare- Managed Care AETNA AETNA MEDICARE ADV PPO/HMO/PFFS [id number] 03/29/2022-Prese nt [address] [place] [address] Medicare- Managed Care UHC MANAGED MEDICARE ADV UHC COMPLETE CHOICE MEDICARE ADV PPO [id number] 03/29/2016-Prese nt [phone] [address] [address] [place] [address] Medicare- Managed Care AETNA AETNA MEDICARE ADV PPO/HMO/PFFS [id number] 03/29/2022-Prese nt [address] [place] [address] Medicare- Managed Care UHC MANAGED MEDICARE ADV UHC COMPLETE CHOICE MEDICARE ADV PPO [id number] 03/29/2016-Prese nt [phone] [address] [address] [place] [address] Medicare- Managed Care AETNA AETNA MEDICARE ADV PPO/HMO/PFFS [id number] Effective for all dates [address] [place] [address] Medicare- Managed Care UHC MANAGED MEDICARE ADV UHC COMPLETE CHOICE MEDICARE ADV PPO [id number] 03/29/2016-Prese nt [phone] [address] [address] [place] [address] Medicare- Managed Care UHC MANAGED MEDICARE ADV UHC COMPLETE CHOICE MEDICARE ADV PPO [id number] 03/29/2016-Prese nt [address] [address] [place] [address] Medicare- Managed Care AETNA AETNA MEDICARE ADV HMO/PPO [id number] Effective for all dates [address] [place] [address] Medicare- Managed Care UHC MANAGED MEDICARE ADV UHC COMPLETE CHOICE MEDICARE ADV PPO [id number] 03/29/2016-Prese nt [address] [address] [place] [address] Medicare- Managed Care UHC MANAGED MEDICARE ADV UHC COMPLETE CHOICE MEDICARE ADV PPO [id number] 03/29/2016-[facility] [address] [address] [place] [address] Medicare- Managed Care [facility] MANAGED MEDICARE ADV [facility] COMPLETE CHOICE MEDICARE ADV PPO [id number] 03/29/2016-[facility] [address] [address] [place] [address] Medicare- Managed Care [facility] MANAGED MEDICARE ADV [facility] COMPLETE CHOICE MEDICARE ADV PPO [id number] 03/29/2016-[facility] [address] [address] [place] [address] Medicare- Managed Care Care Teams Leather Production Worker Relationship Specialty Start Date End Date Flor Garcia MD [address] [place] [address] PCP - General Family Medicine 09/21/23
--- OUTSIDE RECORDS SUMMARY | 2024-05-08 14:53 | XMS_ITS ---
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 Past Plans No past plan information found. Radiation Treatments * Plan Last Treated On Elapsed Days Fractions Treated Prescribed Fraction Dose Prescribed Total Dose #[id number] 06/09/2023 5 of 5 3,000 cGy Reference Point Last Treated On Elapsed Days Session Dose Total Dose PTVbed 06/09/2023 600 cGy 3,000 cGy
== END 2024-05-08 14:32 | disposition home or self-care (01) ==
LOC: ANHSURGERY 14:36
PROVIDERS: PCP Family Medicine; Visit Provider Surgery Plastic and Reconstructive Surgery
DX: Z01.818 Encounter for other preprocedural examination (principal); E78.5 Hyperlipidemia, unspecified; R94.31 Abnormal electrocardiogram [ECG] [EKG]
CPT/HCPCS: 93005

== ENCOUNTER 2024-05-11 01:17 | Day surgery (SDC) | payer OTHER, SELFPAY ==
--- NOTE | 2024-05-03 13:08 | PC.NURSE ---
Report to the Outpatient Waiting Room, entrance under the green pavilion located off [facility], at time ___6 AM____ on date 05/11/24 . Planned Procedure Time: _7:30 AM .? Time changes happen often and if your time is changed the preop area will call you the afternoon before. - You and your visitor will be asked to self-screen and do not enter if you have any COVID symptoms. Please call surgeon if you need to reschedule. - A mask is optional within the hospital at this time. Patients may have clear liquids (water, carbonated beverages, clear teas, apple juice) until 3 hours prior to surgery( 4:30 AM) with a maximum of 20 ounces. - No food from midnight until time of surgery and no smoking, or chewing tobacco (or any form of nicotine). No chewing gum, candy or mints. Take only the following medications with a SIP of water on the morning of surgery: _ALPRAZOLAM IF NEEDED DO NOT STOP ANY OF YOUR OTHER PRESCRIPTION MEDICATIONS PRIOR TO SURGERY EXCEPT THE FOLLOWING Hold all vitamins and supplements for 3 days per anesthesiologist. Medications to discontinue per physician NONE Please no make-up, nail hungarian, hairspray, perfume, deodorant, or body powder the day of surgery.? No jewelry (including any body piercings) or valuables the day of surgery, leave them at home.? Please take a shower or bath the night before, or the morning of, surgery with an antibacterial soap.? Wear comfortable, loose fitting clothing.? Children are encouraged to wear pajamas. - Jewelry must be removed prior to entering the operating room.? Rings and piercings that are not removed may be cut off. - The hospital will not accept responsibility for valuables.? - Please leave all valuables, including medications, at home the day of surgery. If you are going home after surgery, a licensed delivery route driver must drive you home.? - NO public transportation without another adult if you receive anesthesia. - We recommend that an adult stay with you for 24 hours following discharge. - We also recommend that you do not drive, make important decision, drink alcoholic beverages, or take any drugs that were not prescribed by your health care provider for at least 24 hours after your discharge time. For Pediatric surgeries, we recommend two adults accompany the child home. Follow any additional instructions given to you from your surgeon. Telephone instructions given to __PATIENT and asked if any additional questions and then verbalized understanding. Patient advised to call surgeon office or pre surgery nurse liaison [phone] if any additional questions.
[2024-05-03 13:28] VITALS: BMI 26.2
[2024-05-11] VITALS (16 sets, daily range): BP systolic 84–117; BP diastolic 44–70; PULSE 65–89; RESP 13–16; TEMP 36.1–36.8; O2SAT 98–100
--- OUTSIDE RECORDS SUMMARY | 2024-05-11 01:19 | XMS_ITS | Referral Summary ---
Author Organization [facility] Address [address] [place] [address] Care Team Providers Care Front End Software Developer Name Role Phone Rozina Packer MD Primary Care Provider [phone] Michael Rivera MD Unavailable [phone] Unruly Evans MD Unavailable [phone] Allergies No known active allergies Medications estradioL [...] (06/29/2019): Added automatically from request for surgery [id number] Social History Tobacco Use Types Packs/Day Years Used Date Smoking Tobacco: Never Smokeless Tobacco: Never Alcohol Use Standard Drinks/Week Comments Yes 0 (1 standard drink = 0.6 oz pur e alcohol) 3-4 drinks/month Comments No Sex and Gender Information Value Date Recorded Sex Assigned at Not on file Legal Sex Female 6:10 AM MILK HANDLER Gender Identity Not on file Sexual Orientation [...] Read Routine (OP Routine) 05/25/2023 1:28 PM MILK HANDLER Screening mammogram, encounter for from Last 3 Months or Most Recently Relevant to Health Maintenance Results * Screening Mammogram Bilateral W Miguelangel (05/25/2023 1:28 PM MILK HANDLER) Anatomical Region Laterality Modality Breast Bilateral Mammography Narrative 05/25/2023 3:48 PM MILK HANDLER Examination: Screening Mammogram Bilateral W Miguelangel: 05/25/23 [...] Relevant to Health Maintenance Insurance MEDICARE [facility] MEDICARE Address: [address] [address] [place] [address] AETNA MEDICARE AETNA MEDICARE Advance Directives For more information, please contact: [phone] * Full Code (Latest Code Status on File) Date Activated Date Inactivated Comments 08/23/2020 9:09 AM 08/23/2020 1:55 PM Care Teams Front End Software Developer Relationship Specialty Start Date End Date Rozina Packer MD [address] [place] [address] [place] [address] PCP - General 04/30/17 Michael Rivera MD [address] [place] [address] [place] [address] Surgeon Orthopedic Surgery 07/26/19 Unruly Evans MD [address] [place] [address] [place] [address] Olive Brine Tester Dermatology 07/26/19
--- OUTSIDE RECORDS SUMMARY | 2024-05-11 01:19 | XMS_ITS | Clinical Summary ---
Author Organization [facility] Address [address] [place] [address] Care Team Providers Care Fan Runner Name Role Phone Rozina Packer MD Primary Care Provider [phone] Michael Rivera MD Unavailable Unruly Evans MD Unavailable [phone] Allergies No known active allergies Medications estradioL [...] (06/29/2019): Added automatically from request for surgery [id number] Surgical History Surgery Date Site/Laterality Comments CRANIOTOMY [...] on file Legal Sex Female 6:10 AM GENERAL PRODUCTION MANAGER Gender Identity Not on file Sexual [...] Read Routine (OP Routine) 05/25/2023 1:28 PM GENERAL PRODUCTION MANAGER Screening mammogram, encounter for from Last 3 Months or Most Recently Relevant to Health Maintenance Results * Screening Mammogram Bilateral W Miguelangel (05/25/2023 1:28 PM GENERAL PRODUCTION MANAGER) Anatomical Region Laterality Modality Breast Bilateral Mammography Narrative 05/25/2023 3:48 PM GENERAL PRODUCTION MANAGER Examination: Screening Mammogram Bilateral W Miguelangel: 05/25/23 [...] to Health Maintenance Insurance MEDICARE [facility] MEDICARE Address: [address] [address] [place] [address] [employer] MEDICARE A[employer] MEDICARE Advance Directives For more information, please contact: [phone] * Full Code (Latest Code Status on File) Date Activated Date Inactivated Comments 08/23/2020 9:09 AM 08/23/2020 1:55 PM Care Teams Fan Runner Relationship Specialty Start Date End Date Rozina Packer MD [address] [place] [address] [place] [address] PCP - General 04/30/17 Michael Rivera MD [address] [place] [address] [place] [address] Surgeon Orthopedic Surgery 07/26/19 Unruly Evans MD [address] [place] [address] [place] [address] Recreation Attendant Dermatology 07/26/19
--- OUTSIDE RECORDS SUMMARY | 2024-05-11 01:19 | XMS_ITS | Encounter Summary ---
Author Organization [facility] Healthcare Address [address] [place] [address] Care Team Providers Care Manager Of Network Name Role Phone Rozina Packer MD Primary Care Provider + [phone] Michael Rivera MD Unavailable [phone] Unruly Evans MD Unavailable [phone] Encounter Details Date Type Department Care Team (Late st Contact Info) Description 08/15/2020 Telephone [facility] [address] [place], [place] [id number] Nery Scott, RT Social History Tobacco Use Types Packs/Day Years Used Date Smoking Tobacco: Never Smokeless Tobacco: Never Alcohol Use Standard Drinks/Week Comments Yes 0 (1 standard drink = 0.6 oz pur e alcohol) 3-4 drinks/month Comments No Sex and Gender Information Value Date Recorded Sex Assigned at Not on file Legal Sex Female 6:10 AM HIDE WASHER Gender Identity Not on file Sexual Orientation Not on file Occupation Industry Job Start Date Job End Date TEACHER Not on file Not on file Not on file documented as of this encounter Plan of Treatment Not on file documented as of this encounter Visit Diagnoses Not on filedocumented in this encounter Care Teams Manager Of Network Relationship Specialty Start Date End Date Rozina Packer MD [address] [place] [address] [place] [address] PCP - General 04/30/17 Michael Rivera MD [address] [place] [address] [place] [address] Surgeon Orthopedic Surgery 07/26/19 Unruly Evans MD [facility] [address] Resort Desk Clerk Dermatology 07/26/19 documented as of this encounter
--- OUTSIDE RECORDS SUMMARY | 2024-05-11 01:19 | XMS_ITS | Data Portability ---
Author Organization [facility] [employer], Main Office Address [address] [place] [address] Assessment No assessment recorded. Plan of Treatment Reminders Order Date Submit Date Provider Last Modified By Organization Details Last Modified Time Details Appointments None recorded. Lab culture, urine + sensitivity 2023 024 [email or web address] 2 [facility], [address] [place], [address], 4 10:01:42 urinalysis, dipstick 2023 024 [email or web address] [facility] [address] , [address], [place], [address], 4 10:34:35 Referral gastroenter ologist referral 2022 023 [email or web address] 3 Steve Candelario MD, [address] [facility] [address], [place], [address], 3 09:18:16 Procedures None recorded. Surgeries None recorded. Imaging MRI, lumbar spine, w/o contrast - *Please call pt to schedule* 2022 023 [email or web address] [facility], [address], [address], [place], [address], 3 10:01:01 Medication Orders Medrol (Fan) 4 mg tablets in a dose pack 2022 023 [email or web address] [facility] #[id number], [address], [place], [place], [id number], 4 13:59:36 cyclobenzap rine 10 mg tablet 2022 023 [facility] #87224, [address], [place], [place], [id number], 4 13:59:01 phenazopyri dine 200 mg tablet 2023 024 [facility] #92255, [address], [place], [place], [id number], 4 14:00:04 ciprofloxac in 500 mg tablet 2023 024 [facility] #24129, [address] [facility] [address] [facility], [place], [place], [id number], 4 13:58:52 ondansetron 4 mg disintegrat ing tablet [address] [facility] #76276, [address] [facility] [address] [place] [address], [id number], 4 14:11:29 ciprofloxac in 500 mg tablet [address] [facility] #47255, [address] [facility] [address] [place] [address], [id number], 4 14:09:18 Patient TargetsNo targets recorded. 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 See Note 1 Note 1 For addit ional infor harrison ness e refer to http: //[facility] sara Bow[employer] gnost ics.c om/fa q/FAQ 199 (This link is being provi ded for infor hillary bradley/ josseline cazares purpo ses only. ) Not Available [facility] [address], [address], 06/04/2021 05:31:00 06/04/19 22 06/04/2021 COMPR EHENS KAVITHA METAB OLIC PANEL glucose 98 mg/dL 65-99 normal Fasti ng refer ence inter janeth Not Available [facility] [address], [address], 06/04/2021 05:30:59 06/04/19 22 06/04/2021 COMPR EHENS KAVITHA METAB OLIC PANEL urea nitrogen (BUN) 18 mg/dL 7-25 normal Not Available [facility] [address], [address], 06/04/2021 05:30:59 06/04/19 22 06/04/2021 COMPR EHENS KAVITHA METAB OLIC PANEL creatinine 0.70 mg/dL 0.60-0 .93 normal For patie nts >49 years of age, the refer ence limit for Creat inine is appro ximat shea 13% highe r for peopl e ident ified as Afric an-Am wilberto n. Not Available [address] [address] [place], [address], 06/04/2021 05:30:59 06/04/19 22 06/04/2021 COMPR EHENS KAVITHA METAB OLIC PANEL eGFR non-afr. georgian 88 mL/mi n/1.7 3m2 > or = 60 normal Not Available [address], [address], 06/04/2021 05:30:59 06/04/19 22 06/04/2021 COMPR EHENS KAVITHA METAB OLIC PANEL eGFR 102 mL/mi n/1.7 3m2 > or = 60 normal Not Available [address], [address], 06/04/2021 05:30:59 06/04/19 22 06/04/2021 COMPR EHENS KAVITHA METAB OLIC PANEL BUN/creatini ne ratio not applic able (calc ) 6-22 Not Available [address], [address], 06/04/2021 05:30:59 06/04/19 22 06/04/2021 COMPR EHENS KAVITHA METAB OLIC PANEL sodium 142 mmol/ L 135-14 6 normal Not Available [address], [address], 06/04/2021 05:30:59 06/04/19 22 06/04/2021 COMPR EHENS KAVITHA METAB OLIC PANEL potassium 4.6 mmol/ L 3.5-5. 3 normal Not Available [address], [address], 06/04/2021 05:30:59 06/04/19 22 06/04/2021 COMPR EHENS KAVITHA METAB OLIC PANEL chloride 105 mmol/ L 98-110 normal Not Available [address], [address], 06/04/2021 05:30:59 06/04/19 22 06/04/2021 COMPR EHENS KAVITHA METAB OLIC PANEL carbon dioxide 30 mmol/ L 20-32 normal Not Available [address], [address], 06/04/2021 05:30:59 06/04/19 22 06/04/2021 COMPR EHENS KAVITHA METAB OLIC PANEL calcium 9.4 mg/dL 8.6-10 .4 normal Not Available [address], [address], 06/04/2021 05:30:59 06/04/19 22 06/04/2021 COMPR EHENS KAVITHA METAB OLIC PANEL protein, total 6.3 g/dL 6.1-8. 1 normal Not Available [address], [address], 06/04/2021 05:30:59 06/04/19 22 06/04/2021 COMPR EHENS KAVITHA METAB OLIC PANEL albumin 4.3 g/dL 3.6-5. 1 normal Not Available [address], [address], 06/04/2021 05:30:59 06/04/19 22 06/04/2021 COMPR EHENS KAVITHA METAB OLIC PANEL globulin 2.0 g/dL_ (calc ) 1.9-3. 7 normal Not Available [address], [address], 06/04/2021 05:30:59 06/04/19 22 06/04/2021 COMPR EHENS KAVITHA METAB OLIC PANEL albumin/glob ulin ratio 2.2 (calc ) 1.0-2. 5 normal Not Available [facility] [address], [place], [address], 06/04/2021 05:30:59 06/04/19 22 06/04/2021 COMPR EHENS KAVITHA METAB OLIC PANEL bilirubin, total 0.4 mg/dL 0.2-1. 2 normal Not Available [address], [address], 06/04/2021 05:30:59 06/04/19 22 06/04/2021 COMPR EHENS KAVITHA METAB OLIC PANEL alkaline phosphatase 65 U/L 37-153 normal Not Available [address], [address], 06/04/2021 05:30:59 06/04/19 22 06/04/2021 COMPR EHENS KAVITHA METAB OLIC PANEL AST 20 U/L 10-35 normal Not Available [address], [address], 06/04/2021 05:30:59 06/04/19 22 06/04/2021 COMPR EHENS KAVITHA METAB OLIC PANEL ALT 16 U/L 6-29 normal Not Available [address], [address], 06/04/2021 05:30:59 06/04/19 22 06/04/2021 LIPID PANEL , STAND REJI cholesterol, total 216 mg/dL <200 high Not Available [address], [address], 06/04/2021 05:30:59 06/04/19 22 06/04/2021 LIPID PANEL , STAND REJI HDL cholesterol 86 mg/dL > or = 50 normal Not Available [address], [address], 06/04/2021 05:30:59 06/04/19 22 06/04/2021 LIPID PANEL , STAND REJI triglyceride s 114 mg/dL <150 normal Not Available [facility] [address] [place], [address], 06/04/2021 05:30:59 06/04/19 22 06/04/2021 LIPID PANEL [...] 310(1 9): 2061- 2068 (http ://ed ucati on.Urbita noraBioTrove. com/f aq/FA Q164) Not Available [facility] [address] [address], [place], [address], 06/04/2021 05:30:59 06/04/19 22 06/04/2021 LIPID PANEL , STAND REJI chol/HDLC ratio 2.5 (calc ) <5.0 normal Not Available [facility] [address], [place], [address], 06/04/2021 05:30:59 06/04/19 22 06/04/2021 LIPID PANEL , STAND REJI non HDL cholesterol 130 mg/dL _(mohsen c) <130 high For patie nts with diabe fredi plus 1 major ASCVD risk facto r, treat ing to a non-H DL-C goal of <100 mg/dL (LDL- C of <70 mg/dL ) is consi dered a thera peuti c optio n. Not Available [facility] [address] [place], [address], 06/04/2021 05:30:59 04/03/19 23 04/03/2022 COMPR EHENS KAVITHA METAB OLIC PANEL sodium 139 mmol/ L 137-14 5 Not Available [facility] (Lab) [address] [place], [address], 04/03/2022 20:33:53 04/03/19 23 04/03/2022 COMPR EHENS KAVITHA METAB OLIC PANEL potassium 4.3 mmol/ L 3.5-5. 1 Not Available [facility] (Lab) [address] [place], [address], 04/03/2022 20:33:53 04/03/19 23 04/03/2022 COMPR EHENS KAVITHA METAB OLIC PANEL chloride 103 mmol/ L 98-107 Not Available [facility] (Lab) [address] [place], [address], 04/03/2022 20:33:53 04/03/19 23 04/03/2022 COMPR EHENS KAVITHA METAB OLIC PANEL carbon dioxide 28 mmol/ L 22-30 Not Available [facility] (Lab) [address] [place], [address], 04/03/2022 20:33:53 04/03/19 23 04/03/2022 COMPR EHENS KAVITHA METAB OLIC PANEL anion gap 12.3 mmol/ L 14-22 low Not Available [facility] (Lab) [address] [place], [address], 04/03/2022 20:33:53 04/03/19 23 04/03/2022 COMPR EHENS KAVITHA METAB OLIC PANEL glucose 100 mg/dL 70-99 high Not Available [facility] (Lab) [address] [place], [address], 04/03/2022 20:33:53 04/03/19 23 04/03/2022 COMPR EHENS KAVITHA METAB OLIC PANEL BUN 13 mg/dL 8-19 Not Available [facility] (Lab) [address] [place], [address], 04/03/2022 20:33:53 04/03/19 23 04/03/2022 COMPR EHENS KAVITHA METAB OLIC PANEL creatinine 0.75 mg/dL 0.66-1 .25 Not Available [facility] (Lab) [address] [place], [address], 04/03/2022 20:33:53 04/03/19 23 04/03/2022 COMPR EHENS KAVITHA METAB OLIC PANEL GFR >60 Refer ence Range : [place] ge GFR Healt hy Adult : >60 [...] or ethni c subgr oups, such as [facility] nics. Outsi de the valid ated [...] s/kdo qi/gf r_cal culat or Not Available [facility] (Lab) [address] [place], [address], 04/03/2022 20:33:53 04/03/19 23 04/03/2022 COMPR EHENS KAVITHA METAB OLIC PANEL alkaline phosphatase 75 U/L 38-126 Not Available [facility] (Lab) [address] [place], [address], 04/03/2022 20:33:53 04/03/19 23 04/03/2022 COMPR EHENS KAVITHA METAB OLIC PANEL alanine aminotransfe rase 27 U/L 0-35 Not Available [facility] (Lab) [address] [place], [address], 04/03/2022 20:33:53 04/03/19 23 04/03/2022 COMPR EHENS KAVITHA METAB OLIC PANEL aspartate aminotransfe rase 33 U/L 15-37 Not Available [facility] (Lab) [address] [place], [address], 04/03/2022 20:33:53 04/03/19 23 04/03/2022 COMPR EHENS KAVITHA METAB OLIC PANEL bilirubin, total 0.70 mg/dL 0.20-1 .30 Not Available [facility] (Lab) [address] [place], [address], 04/03/2022 20:33:53 04/03/19 23 04/03/2022 COMPR EHENS KAVITHA METAB OLIC PANEL calcium 9.4 mg/dL 8.4-10 .2 Not Available [facility] (Lab) [address] [place], [address], 04/03/2022 20:33:53 04/03/19 23 04/03/2022 COMPR EHENS KAVITHA METAB OLIC PANEL total protein 6.9 g/dL 6.3-8. 2 Not Available [facility] (Lab) [address] [place], [address], 04/03/2022 20:33:53 04/03/19 23 04/03/2022 COMPR EHENS KAVITHA METAB OLIC PANEL albumin 4.3 g/dL 3.0-4. 4 Not Available [facility] (Lab) [address] [place], [address], 04/03/2022 20:33:53 04/03/19 23 04/03/2022 COMPR EHENS KAVITHA METAB OLIC PANEL globulin 2.6 g/dL 2.6-4. 2 Not Available [facility] (Lab) [address] [place], [address], 04/03/2022 20:33:53 04/03/19 23 04/03/2022 COMPR EHENS KAVITHA METAB OLIC PANEL A/G ratio 1.7 ratio 1.0-2. 0 Not Available [facility] (Lab) [address] [place], [address], 04/03/2022 20:33:53 04/03/19 23 04/03/2022 LIPID PANEL cholesterol 263 mg/dL 140-19 9 high NIH KANDICE NSUS RECOM MENDA TION FOR CECILIA STERO L: ADULT CHILD LOW RISK: <200 <170 BORDE RLINE : <200- 239 ----- HIGH RISK: >240 >200 Not Available [facility] (Lab) [address] [place], [address], 04/03/2022 20:33:32 04/03/19 23 04/03/2022 LIPID PANEL triglyceride s 158 mg/dL 0-150 high NIH KANDICE NSUS REPOR T RECOM MENDA TION FOR TRIGL YCERI MIL: ADULT CHILD LOW RISK: <150 ----- BODER LINE: 150-1 99 ----- HIGH RISK: >200 ----- Not Available [facility] (Lab) [address] [place], [address], 04/03/2022 20:33:32 04/03/19 23 04/03/2022 LIPID PANEL HDL cholesterol 92 mg/dL 40- Not Available [facility] (Lab) [address] [place], [address], 04/03/2022 20:33:32 04/03/19 23 04/03/2022 LIPID PANEL [...] WILL NOT BE REPOR JUDSON. Not Available [facility] (Lab) [address] [place], [address], 04/03/2022 20:33:32 05/20/19 24 05/20/2023 urina lysis , dipst ick Leukocytes (reference range: negative ethan/ l) Negati ve Not Available [address], [place], [address], 05/20/2023 10:27:55 05/20/19 24 05/20/2023 urina lysis , dipst ick Nitrite (reference rage: negative mg/dl) negati ve Not Available [address], [place], [address], 05/20/2023 10:27:55 05/20/19 24 05/20/2023 urina lysis , dipst ick Urobilinogen (reference range: 0.2-1 mg/dl) 0.2 Not Available [address], [place], [address], 05/20/2023 10:27:55 05/20/19 24 05/20/2023 urina lysis , dipst ick Protein (reference range: negative mg/dl) Negati ve Not Available [address], [place], [address], 05/20/2023 10:27:55 05/20/19 24 05/20/2023 urina lysis , dipst ick pH (reference range: 5-7) 5.5 Not Available [address], [place], [address], 05/20/2023 10:27:55 05/20/19 24 05/20/2023 urina lysis , dipst ick Blood (reference range: negative Prince/ l) Non-He molyze d: Trace Not Available [address], [place], [address], 05/20/2023 10:27:55 05/20/19 24 05/20/2023 urina lysis , dipst ick Specific [place] (reference range: 1.005-1.030) 1.010 Not Available [address], [place], [address], 05/20/2023 10:27:55 05/20/19 24 05/20/2023 urina lysis , dipst ick Ketone (reference range: negative mg/dl) Negati ve Not Available [address], [place], [address], 05/20/2023 10:27:55 05/20/19 24 05/20/2023 urina lysis , dipst ick Bilirubin (reference range: negative mg/dl) Negati ve Not Available [address], [place], [address], 05/20/2023 10:27:55 05/20/19 24 05/20/2023 urina lysis , dipst ick Glucose (reference range: negative mg/dl) Negati ve Not Available [address], [place], [address], 05/20/2023 10:27:55 05/20/19 24 05/20/2023 urina lysis , dipst ick Appearance Slight ly Cloudy Not Available [address], [place], [address], 05/20/2023 10:27:55 05/20/19 24 05/20/2023 urina lysis , dipst ick Color Yellow Not Available [address], [place], [address], 05/20/2023 10:27:55 04/11/19 22 04/11/2021 imagi ng/rai pace tic resul t No observ ation record ed. [id number] [address], [place], [address], 05/27/2022 15:41:43 04/03/19 23 04/03/2022 bone densi ty No observ ation record ed. [id number] [facility] [address] [place], [address], 05/27/2022 15:41:43 04/03/19 23 04/03/2022 bone densi ty No observ ation record ed. [id number] [facility] [address] [place], [address], 05/27/2022 15:41:43 04/03/19 DEXA, axial skele ton [facility] [address] [place] [address] Patien t Name: RUBEN ARIAS Access ion #: [id number] Sex: F : 1950 0 Locati [...] e of -1.1. Page 1 of 2 [facility] Name: RUBEN ARIAS Access ion #: [id number] Sex: F : 1950 0 Exam [...] MD (CT) (CT) Page 2 of 2 [id number] [facility] (Imaging) [address], [place], [address], 05/27/2022 15:41:43 05/25/19 24 05/25/2023 MAMMO , scree mio, digit al, bilat eral No observ ation record ed. [email or web address] [facility] [address], [place], [address], 05/26/2023 11:48:33 Result Notes None recorded. Problems Name Problem SNOMED Code Status Onset Date Resolution Date Notes Provider Name and Address Organization Details Recorded Time Mammography abnormal 347686236 Active 2021 Not Available [facility] 3 15:40:51 Fluid level behind tympanic membrane Active Not Available [facility] 3 15:40:51 Depressive disorder 02947698 Active Not Available [facility] 3 15:40:51 Seasonal allergy 500984730 Active Not Available [facility] 3 15:40:52 Foot pain 95220377 Active Not Available [facility] 3 15:40:52 Anxiety 44740279 Active Not Available [facility] 3 15:40:52 Hemorrhoids 10901171 Active Not Available [facility] 3 15:40:52 Posterior rhinorrhea 40682136 Active Not Available [facility] 3 15:40:52 Acute sinusitis 50882758 Active 2022 Rozina Packer MD [address] [place] [address], [place], [address] , [employer] [facility] [employer] 3 10:31:28 Spinal stenosis of lumbar region 13693348 Active 2022 Rozina Packer MD [address], [place], [address] , [employer] [facility] [employer] 3 16:58:47 Lesion of face 846861376 Active 2022 Rozina Packer MD [address], [place], [address] , [facility] [employer] [facility] [employer] 3 17:01:52 Increased frequency of urination 821362823 Active 2023 EMILI Meadows [address], [place], [address] , [facility] [employer] [facility] [employer] 4 10:27:12 Nausea 604295340 Active 2023 EMILI Meadows [address], [place], [address] , [employer] 4 14:10:34 Problem Notes None recorded. Procedures Surgical History Date Name Laterality Status Provider Name and Address Organization Details Recorded Time screening mammography completed Rowena Patino RN [facility] [employer] 05/26/2023 11:48:09 Imaging Results Imaging Date Name Status LastModified by Organiz [facility] Details LastModified Time 04/03/2022 bone density completed [id number] 026 [facility] Orders [address] [place], [address], 05/27/2022 15:41:43 04/03/2022 bone density completed [id number] 026 [facility] Orders [address] [place], [address], 05/27/2022 15:41:43 04/03/2022 DEXA, axial skeleton completed [id number] [facility] (Imaging) [address] [place], [address], 05/27/2022 15:41:43 04/11/2021 imaging/diagno stic result completed [id number] [address], [place], [address], 05/27/2022 15:41:43 05/25/2023 MAMMO, screening, digital, bilateral completed [email or web address] [facility] [address], [place], [address], 05/26/2023 11:48:33 Procedure Notes None recorded. Medical [...] Available Not Available Not Available [facility] High-Dose 2899-9074 (PF) 180 mcg/0.5 mL intramusc ular syringe [...] % 98 % 59 /min 96.2 [degF] 55775.4 1 g 108 mm[Hg] 80 mm[Hg] Not Available [employer] 3 15:40:35 Date Recorded Body weight Body mass index (BMI) Body height Body temperature Heart rate Oxygen saturation Oxygen saturation in Arterial blood by Pulse oximetry Systolic blood pressure Diastolic blood pressure Provider Name and Address Organization Details Last Updated DateTime 3 64755.8 2 g 26.6 kg/m2 162.56 cm 98.1 [degF] 64 /min 98 % 98 % 124 mm[Hg] 72 mm[Hg] Valerie Esquivel MA [facility] [employer] 3 16:47:12 Date Recorded Body height Body mass index (BMI) Body weight Body temperature Heart rate Oxygen saturation Oxygen saturation in Arterial blood by Pulse oximetry Respiratory rate Systolic blood pressure Diastolic blood pressure Provider Name and Address Organization Details Last Updated DateTime 4 162.56 cm 26.6 kg/m2 07897.8 2 g 98.3 [degF] 63 /min 97 % 97 % 16 /min 102 mm[Hg] 70 mm[Hg] Ivania Yousif RN [facility] [employer] 4 14:03:00 Social History None recorded. Functional Status None recorded. Mental Status None recorded. Family History Relationship Description Onset Age of this Age Resolved Age Notes LastModified by Organization Details LastModified Time Father Family history of malignant neoplasm [id number] Not available 05/27/2022 15:40:13 Medical History No medical history recorded. Gynecological HistoryNo gynecological history recorded. Obstetrics History GPAL:G 0 P 0 0 0 0 Immunizations Vaccine Type Date Status Note Provider Nam e and Address Organization Details Recorded Time Influenza, split virus, trivalent, preservative 5 completed Not Available [facility] 05/27/2022 15:41:40 zoster live 2 completed Not Available [facility] 05/27/2022 15:41:40 Pneumococcal conjugate PCV 13 0 completed Not Available [facility] 05/27/2022 15:41:40 Pneumococcal conjugate PCV 13 8 completed Not Available [facility] 05/27/2022 15:41:40 Influenza, high-dose, trivalent, PF 6 completed Not Available [facility] 05/27/2022 15:41:40 Tdap 9 completed Not Available [facility] 05/27/2022 15:41:41 Past Encounters Encounter ID Performer Location Encounter Start Date Encounter Closed Date Diagnosis/Indication Diagnosis SNOMED-CT Code Diagnosis ICD10 Code Diagnosis Note [id number] [facility] [place] [address] [place] [address] 11/15/2020 00:00:00 11/15/2020 16:03:18 [id number] [facility] [place] [address] [place] [address] [place] [address] 04/02/2021 00:00:00 04/02/2021 22:03:51 [id number] [facility] [place] [address] [facility] [place] [address] 03/16/2022 00:00:00 03/16/2022 13:38:12 [id number] Rozina Packer MD [facility] [place] [address] [place] [address] [place] [address] 10/29/2022 16:34:25 10/29/2022 17:19:01 Spinal stenosis of lumbar region 49037570 M48.062 Went to PT no help Lesion of face 317244871 L98.9 See dermatolog ist for skin lesionUse heat and PRID to area it looks cystic Screening for malignant neoplasm of colon 614723194 Z12.11 Family his tory of cancer of colon 853095180 Z80.0 [id number] EMILI Meadows [facility] [place] [address] [facility] [place] [address] 05/20/2023 10:09:27 06/02/2023 09:25:50 Increased frequency of urination 411266996 R35.0 [id number] EMILI Meadows [facility] [place] [address] [facility] [address] [place] [address] 08/18/2023 13:53:03 08/18/2023 14:15:31 Increased frequency of urination 571572247 R35.0 Nausea 548189229 R11.0 Anxiety 73433864 F41.9 Depressive disorder 3548 9007 F32.A Seasonal allergy 2319658 04 J30.2 Spinal varinder nosis of lumbar region 81231096 M48.062 Health Concerns Section Related Observation LastModified by Organization Detai ls LastModified Time None Recorded Concern Status LastModified by Organization Details LastModified Time None Recorded Advance Directives Directive None Recorded Payers Encounter Date Sequence Insurance Name Policy Number Policy Guidry Covered Member ID Guidry Member ID Guarantor Name 10/29/2022 1 [employer] (MEDICARE REPLACEMENT PPO) [id number] 1 Ruben L Polivick [id number] Ruben Polivick 05/20/2023 1 [employer] (MEDICARE REPLACEMENT PPO) [id number] Ruben L Polivick [id number] Ruben Polivick 08/18/2023 1 [employer] (MEDICARE REPLACEMENT PPO) [id number] 1 Ruben L Polivick [id number] Ruben Polivick Notes Date Note Type Note [...] had MRI. Rozina Packer MD [address] [facility] [address], [place], [address], [facility] [employer] 10/29/2022 20:32:49 08/18/2023 text/html 2 nasal surgeries EMILI Mendoza [address] [facility] [address], [place], [address], [employer] [facility] [employer] 09/07/2023 10:39:57 OBGyn Episode No OBEpisode recorded.
--- OUTSIDE RECORDS SUMMARY | 2024-05-11 01:19 | XMS_ITS | Encounter Summary ---
Author Organization [facility] Address [address] [place] [address] Care Team Providers Care Assistant Designer Name Role Phone Rozina Packer MD Primary Care Provider [phone] Flor Garcia MD Primary Care Provider [phone] Encounter Details Date Type Department Care Team (Late Contact Info) Description 12/10/2022 Lab Requisition [facility] - DermPath Lab [address], [place] [address] Fay Araujo MD [address] [place] [address] [place] [address] Neoplasm of uncertain behavior of [...] Info) Description 12/18/2024 8:30 AM CDT Appointment [facility] MRI [address] [place] [address] Praveen Atkinson MD [address] [place] [address] 12/18/2024 10:00 AM CDT Appointment [facility] RAD ONC [address] [place] [address] Praveen Atkinson MD [address] [place] [address] documented as of this encounter Procedures Procedure Name Priority Date/Time Associated Diagnosis Comments DERMATOPATHOLOGY Routine 12/10/2022 3:33 AM CDT Neoplasm of uncertain behavior of skin Other specified erythematous conditions documented in this encounter Results * DERMATOPATHOLOGY (12/10/2022 3:33 AM CDT) Case Report Dermatopathology Report Case: [id number] Authorizing Provider: Fay Araujo MD Collected: 12/10/2022 03:33 AM Ordering Location: [facility] DermPath Lab Received: 12/11/2022 12:44 PM [...] The specimen is serially sectioned and a retail customer service representative section is submitted in cassette 1. [...] characteristic determined by the Dermatopathology Laboratory at [facility], directed by Dr. Kyle Anthony. These tests need not be, and therefore are not, approved by the [place] Food and Drug Administration. The tests are used for clinical purposes. Billing Codes Specimen Charges Stain Charges 00914 1 3 4:27 PM CDT DERMATOPATHOLOGY LABORATORY Embedded Images 3 4:27 PM CDT DERMATOPATHOLOGY LABORATORY Pathology/Cytolo gy TISSUE SPECIMEN FROM SKIN / Unknown 12/10/2022 3:33 AM CDT 12/11/2022 12:44 PM CDT Fay Araujo MD LAB - PATHOLOGY/CYTO LOGY ORDERABLES DERMATOPATHOLOGY LABORATORY [facility] - Department of Dermatology [facility] [address] [place] [address], [address] [phone] documented in this encounter Visit Diagnoses Diagnosis Neoplasm of uncertain behavior of skin Other specified erythematous conditions documented in this encounter Care Teams Assistant Designer Relationship Specialty Start Date End Date Rozina Packer MD [address] [place] [address] PCP - General Family Medicine 09/28/19 09/20/23 Flor Garcia MD [address] [place] [address] PCP - General Family Medicine 09/21/23 documented as of this encounter
--- OUTSIDE RECORDS SUMMARY | 2024-05-11 01:19 | XMS_ITS ---
Author Organization [facility] Address [address] [facility] [address] [place] [address] Care Team Providers Care Vegetable Handler Name Role Phone zzzzMigration, zzzzProvider Unavailable Unav ailable REASON FOR VISIT EMR-Kraig Encounters Encounter Location Date Provider Diagnosis [facility] [address] [place] [address] 01/16/2023 zzzzProvider zzzzMigration Plan Of Treatment No Information Progress Notes * Shameka KELSEY LDOB: [birth year] (73 yo F)Acc No.[id number]:01/16/2023 Patient: Shameka TAN :1950 A ge:72 Y S ex:Female [facility] [place], [address] Subjective: * Chief Complaints: * E MR-Kraig * Medical History: * Surgical History: * Hospitalization/Major Diagno stic Procedure: * Medications: Objective: * Vitals: * Physical Examination: Assessment: Plan: * Treatment: * Procedure Codes: * * Date:
--- OUTSIDE RECORDS SUMMARY | 2024-05-11 01:20 | XMS_ITS | Continuity of Care Document ---
Author Organization [facility] Address [address] [place] [address] Phone Care Team Providers Care Ladies' Locker Room Attendant Name Role Phone DoseRamakrishna san DPM Unavailable Unavailable Allergies, Adverse Reactions, Alerts Substance Reaction Status Criticality No Known Allergies Active No Inform ation Procedures Procedure Date X-ray exam foot, minimum 3 views 2023 Global/Postop followup visit Correction Hallux Rigidus W/ Cheilectomy W/ Implant X-ray exam foot, minimum 3 views 2022 Office/outpatient visit,[facility], [facility] 2022 Advance Directives Directive Yes / No Effective Date File Name No Information Encounters Encounter Description Practice Location Reason(s) For Visit Diagnoses Date Provider Providers Copied on Encounter [facility], [address] [place] [address], [id number], [place] tel:[phone] [facility] Follow Up of right foot (chief complaint) Pain in right footHallux rigidus, right foot 4 Kayla Durbin. [address] [place] [address], [place] [address], [place], [place], [id number] , [place]. tel:[phone] Referring Provider: Ramakrishna Arnold, [address] [place] [address] Suite Formerly named [facility], [place], [address] . tel:[phone] [facility], [address] [place] [address], [id number], [place] tel:[phone] [facility] No Information 4 Doser Ramakrishna. [address] [facility], [place] [address], [place], [place], [id number] , . tel:[phone] Referring Provider: Ramakrishna Arnold, [address], [place], [address] . tel:[phone] [facility], [address], [id number], tel:[phone] [facility] Pain in right foot 4 Doser Ramakrishna. [address], [place] [address], [place], [place], [id number] , [place]. tel:[phone] Office/outpat ient visit,[facility], [address], [id number], tel:[phone] [facility] Unsuccessful toe joint surgery (chief complaint) Pain in right footHallux rigidus, right foot 3 Doser Ramakrishna. [address], [place] [address], [place], [place], [id number] , . tel:[phone] Family History Family Member Type Diagnosis Age At Onset Mother Problem (finding) Osteoporosis Father Problem (finding) Alcoholism Father Problem (finding) Heart Disease Father Problem (finding) Cancer, unknown Father Problem (finding) Diabetes Payers Payer name Insurance type Covered republican ID Minhdougie kaileycheyenne(s) A[employer] Medicare CI [id number] Social History Type Description Quantity Date Captured [...]
--- OUTSIDE RECORDS SUMMARY | 2024-05-11 01:20 | XMS_ITS | Patient Health Summary ---
Author Organization [facility] Address [address] [facility] [place] [address] Care Team Providers Care Drapery Cutter Machine Name Role Phone Flor Garcia MD Primary Care Provider [phone] Note from [facility],non-owned Affiliates and Associated Physician Practices is amultiple site organization consisting of ambulatory clinics and hospital sitesin [place], [place], [place] and [place]. This disclosure is being madepursuant to the Care Everywhere program and may not contain all information available regarding this patient. Last updated 17.[facility] Allergies No known active allergies Medications [...] Comments Blood Pressure 134/68 03/28/2024 1:03 PM SPECIAL EVENTS ASSISTANT Pulse 67 03/28/2024 1:03 PM SPECIAL EVENTS ASSISTANT Temperature 36.7 C (98 F) 03/28/2024 1:03 PM SPECIAL EVENTS ASSISTANT Respiratory Rate 18 03/28/2024 1:03 PM SPECIAL EVENTS ASSISTANT Oxygen Saturation 100% 03/28/2024 1:03 PM SPECIAL EVENTS ASSISTANT Inhaled Oxygen Concentration - - Weight 75.8 kg (167 lb) 03/28/2024 12:01 PM SPECIAL EVENTS ASSISTANT Height 162.6 cm (5' 4 ) 03/28/2024 12:01 PM SPECIAL EVENTS ASSISTANT Body Mass Index 28.67 03/28/2024 12:01 PM SPECIAL EVENTS ASSISTANT Procedures * MRI BRAIN WWO CONTRAST(Performed 03/28/2024) [...] BRAIN WWO CONTRAST PERFUSION (03/28/2024 11:46 AM SPECIAL EVENTS ASSISTANT) Only the most recent of16 resultswithin the time period is included. Anatomical Region Laterality Modality Head Magnetic Resonan ce 04/01/2024 1:40 PM SPECIAL EVENTS ASSISTANT Impressions 04/01/2024 2:02 PM SPECIAL EVENTS ASSISTANT IMPRESSION: 1. No evidence of disease [...] 04/01/2024 2:02 PM Narrative 04/01/2024 2:02 PM SPECIAL EVENTS ASSISTANT PROCEDURE: MRI BRAIN WWO CONTRAST, DATE/TIME OF EXAM: 03/28/2024 11:46 AM, LOCATION [facility] INDICATION: D32.0: Meningioma, recurrent of brain [...] DATE/TIME OF EXAM: 03/28/2024 11:46 AM, LOCATION [facility] INDICATION: D32.0: Meningioma, recurrent of brain [...] - 1.30 mg/dL 09/20/2023 10:39 AM CDT [facility] eGFR >90 >=90 mL/min/1.7 3 m2 09/20/2023 10:39 AM CDT [facility] Blood BLOOD SPECIMEN / Unknown 09/20/2023 10:37 AM CDT 09/20/2023 10:38 AM CDT Praveen Atkinson MD LAB - POINT OF CARE ORDERABLES [facility] [address] [place] [address] [phone] * Rad Onc Aria Session Summary (06/09/2023 1:20 PM CDT) Course ID [id number] tlBrn RAD ONC TREATMENT Course First Treatment [...] Summary (06/07/2023 2:45 PM CDT) Course ID [id number] tlBrn RAD ONC TREATMENT Course First Treatment [...] Onc Aria Session Summary (06/04/2023 9:05 AM SPECIAL EVENTS ASSISTANT) Course ID [id number] tlBrn RAD ONC TREATMENT Course First Treatment [...] cGy RAD ONC TREATMENT 06/04/2023 9:05 AM SPECIAL EVENTS ASSISTANT Provider Unknown RADIATION ONCOLOGY O RDERABLES Performing Organization Address [facility] de Phone Number RAD ONC TREATMENT * Rad Onc Aria Session Summary (06/02/2023 2:18 PM SPECIAL EVENTS ASSISTANT) Course ID [id number] tlBrn RAD ONC TREATMENT Course First Treatment [...] cGy RAD ONC TREATMENT 06/02/2023 2:18 PM SPECIAL EVENTS ASSISTANT Provider Unknown RADIATION ONCOLOGY O RDERABLES Performing Organization Address [facility] Co de Phone Number RAD ONC TREATMENT * Rad Onc Aria Session Summary (05/31/2023 1:56 PM SPECIAL EVENTS ASSISTANT) Course ID [id number] tlBrn RAD ONC TREATMENT Course First Treatment [...] cGy RAD ONC TREATMENT 05/31/2023 1:56 PM SPECIAL EVENTS ASSISTANT Provider Unknown RADIATION ONCOLOGY O RDERABLES Performing Organization Address [facility] Co de Phone Number RAD ONC TREATMENT * DERMATOPATHOLOGY (12/10/2022 3:33 AM CDT) Only the most recent of3 resultswithin the time period is included. Case Report Dermatopathology Report Case: [id number] Authorizing Provider: Fay Araujo MD Collected: 12/10/2022 03:33 AM Ordering Location: [facility] DermPath Lab Received: 12/11/2022 12:44 PM Pathologist: [...] The specimen is serially sectioned and a data entry representative section is submitted in cassette 1. [...] characteristic determined by the Dermatopathology Laboratory at [facility], directed by Dr. Kyle Anthony. These tests need not be, and therefore are not, approved by the [place] Food and Drug Administration. The tests are used for clinical purposes. Billing Codes Specimen Charges Stain Charges [id number] 1 4:27 PM CDT DERMATOPATHOLOGY LABORATORY Embedded Images 4:27 PM CDT DERMATOPATHOLOGY LABORATORY Pathology/Cytolo gy TISSUE SPECIMEN FROM SKIN / Unknown 12/10/2022 3:33 AM CDT 12/11/2022 12:44 PM CDT Fay Araujo MD LAB - PATHOLOGY/CYTO LOGY ORDERABLES DERMATOPATHOLOGY LABORATORY [facility] - Department of Dermatology [facility] [address], 3rd [place] [address], [facility] [phone] * CREATININE BLOOD - POCT (IP) [facility] (07/08/2018 9:06 AM CDT) Only the most recent of8 resultswithin the time period is included. Creatinine POCT 0.79 0.3 - 1.3 mg/dL [facility] POCT TESTING eGFR POCT 60 60 ml/min [facility] POCT TESTING Blood BLOOD SPECIMEN / Unknown 07/08/2018 9:06 AM CDT Praveen Atkinson MD LAB - POINT OF CARE ORDERABLES [facility] POCT TESTING [address] [place] [address], [facility] [phone] * CT RAD THERAPY WO CONTRAST (01/29/2015 1:37 PM SPECIAL EVENTS ASSISTANT) Anatomical Region Laterality Modality Other Impressions 01/29/2015 2:29 PM SPECIAL EVENTS ASSISTANT IMPRESSION: 1. CT localization for radiation treatment planning. This report was approved by Praveen Spann on 01/29/2015 1:48 PM . I, Dr. BEVERLY MADSEN M.D. have personally reviewed and interpreted this examination/study. This report was electronically signed by BEVERLY MADSEN M.D. on 01/29/2015 2:29 PM . Narrative 01/29/2015 2:29 PM SPECIAL EVENTS ASSISTANT EXAMINATION: Computed tomography (CT) radiation treatment plan [...] MD CT ORDERABLES * PATHOLOGY REPORTS - [facility] (06/18/2009 3:31 PM CDT) 06/18/2009 3:31 PM CDT Narrative [facility] - 06/18/2009 3:31 PM CDT Chris Mina MD LAB - PATHOLOGY/CYTO LOGY ORDERABLES Performing Organization Address [facility] de Phone Number [facility] * LAB MICROBIOLOGY - [facility] (06/07/2009 5:04 AM SPECIAL EVENTS ASSISTANT) Only the most recent of2 resultswithin the time period is included. 06/07/2009 5:04 AM SPECIAL EVENTS ASSISTANT [facility] - 06/07/2009 5:04 AM SPECIAL EVENTS ASSISTANT Chris Mina MD LAB - MICROBIOLOGY O RDERABLES Performing Organization Address [facility] Co de Phone Number [facility] Care Teams Drapery Cutter Machine Relationship Specialty Start Date End Date Flor Garcia MD [address] [place] [address] PCP - General Family Medicine 09/21/23
--- OUTSIDE RECORDS SUMMARY | 2024-05-11 01:20 | XMS_ITS | Referral Summary ---
Author Organization [facility] Address [address] [place] [address] Care Team Providers Care Cosmetic Counselor Name Role Phone Flor Garcia MD Primary Care Provider [phone] Source Comments [facility],non-owned Affiliates and Associated Physician Practices is amultiple site organization consisting of ambulatory clinics and hospital sitesin [place], [place], [place] and [place]. This disclosure is being madepursuant to the Care Everywhere program and may not contain all information available regarding this patient. Last updated 17.[facility] Encounters Date Type Department Care Team Description 03/28/2024 12:58 PM BANK RECONCILIATOR - 04/29/2024 11:59 PM BANK RECONCILIATOR Hospital Encounter [facility] - Radiation Oncology [address] [place] [address] Praveen Atkinson MD Discharge Disposition: Home or Self Care 03/28/2024 Travel 03/28/2024 1:00 PM BANK RECONCILIATOR Office Visit [facility] - Rad/Onc [address] [place] [address] Praveen Atkinson MD Meningioma, recurrent of brain (HCC) (Primary Dx) 03/28/2024 2:45 PM BANK RECONCILIATOR Office Visit [facility] - Neurosurgery [address] [place] [address], [place] [address] Praveen Atkinson MD Coppens, Jeroen R, MD Meningioma (HCC) (Primary Dx) 03/28/2024 10:30 AM BANK RECONCILIATOR - 03/28/2024 12:57 PM BANK RECONCILIATOR Hospital Encounter [facility] MRI [address] [place] [address] Praveen Atkinson MD Discharge Disposition: Home or [...] shoulder 09/28/2019 Overview (09/28/2019): Surgical removed at [facility] U Meningioma, recurrent of brain 01/29/2015 Immunizations Name Administration Dates Next Due [employer] primary monoval ent 12+ yr 0.3mL Purple [...] Comments Blood Pressure 134/68 03/28/2024 1:03 PM BANK RECONCILIATOR Pulse 67 03/28/2024 1:03 PM BANK RECONCILIATOR Temperature 36.7 C (98 F) 03/28/2024 1:03 PM BANK RECONCILIATOR Respiratory Rate 18 03/28/2024 1:03 PM BANK RECONCILIATOR Oxygen Saturation 100% 03/28/2024 1:03 PM BANK RECONCILIATOR Inhaled Oxygen Concentration - - Weight 75.8 kg (167 lb) 03/28/2024 12:01 PM BANK RECONCILIATOR Height 162.6 cm (5' 4 ) 03/28/2024 12:01 PM BANK RECONCILIATOR Body Mass Index 28.67 03/28/2024 12:01 PM BANK RECONCILIATOR Plan of Treatment Upcoming Encounters Date Type Department Care Team (Late st Contact Info) Description 12/18/2024 8:30 AM CDT Appointment [facility] MRI [address] [place] [address] Praveen Atkinson MD [address] [place] [id number] 12/18/2024 10:00 AM CDT Appointment [facility] RAD ONC [address] [place] [id number] Praveen Atkinson MD [address] [place] [id number] Procedures Procedure Name Priority Date/Time Associated Diagnosis Comments MRI BRAIN WWO CONTRAST Routine 03/28/2024 11:46 AM BANK RECONCILIATOR Meningioma, recurrent of brain (HCC) from Last 3 Months Results * MRI BRAIN WWO CONTRAST PERFUSION (03/28/2024 11:46 AM BANK RECONCILIATOR) Anatomical Region Laterality Modality Head Magnetic Resonan ce 04/01/2024 1:40 PM BANK RECONCILIATOR Impressions 04/01/2024 2:02 PM BANK RECONCILIATOR IMPRESSION: 1. No evidence of disease progression. [...] 04/01/2024 2:02 PM Narrative 04/01/2024 2:02 PM BANK RECONCILIATOR PROCEDURE: MRI BRAIN WWO CONTRAST, DATE/TIME OF EXAM: 03/28/2024 11:46 AM, LOCATION 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, recurrent of brain (HCC) [...] AETNA MEDICARE ADV AETNA MEDICARE ADV HMO/PPO/PFFS [id number] 03/29/2022-Prese nt [address] [place] [address] Medicare- Managed Care AETNA AETNA MEDICARE ADV PPO/HMO/PFFS [id number] 03/29/2022-Prese nt [address] [place] [address] Medicare- Managed Care UHC MANAGED MEDICARE ADV UHC COMPLETE CHOICE MEDICARE ADV PPO [id number] 03/29/2016-Prese nt [address] [address] [place] [address] Medicare- Managed Care AETNA AETNA MEDICARE ADV PPO/HMO/PFFS [id number] 03/29/2022-Prese nt [address] [place] [address] Medicare- Managed Care UHC MANAGED MEDICARE ADV UHC COMPLETE CHOICE MEDICARE ADV PPO [id number] 03/29/2016-Prese nt [phone] [address] [address] [place] [address] Medicare- Managed Care AETNA AETNA MEDICARE ADV PPO/HMO/PFFS [id number] 03/29/2022-Prese nt [address] [place] [address] Medicare- Managed Care UHC MANAGED MEDICARE ADV UHC COMPLETE CHOICE MEDICARE ADV PPO [id number] 03/29/2016-Prese nt [address] [address] [place] [address] Medicare- Managed Care AETNA AETNA MEDICARE ADV PPO/HMO/PFFS [id number] 03/29/2022-Prese nt [address] [place] [address] Medicare- Managed Care UHC MANAGED MEDICARE ADV UHC COMPLETE CHOICE MEDICARE ADV PPO [id number] 03/29/2016-Prese nt [phone] [address] [address] [place] [address] Medicare- Managed Care AETNA AETNA MEDICARE ADV PPO/HMO/PFFS [id number] 03/29/2022-Prese nt [address] [place] [address] Medicare- Managed Care UHC MANAGED MEDICARE ADV UHC COMPLETE CHOICE MEDICARE ADV PPO [id number] 03/29/2016-Prese nt [phone] [address] [address] [place] [address] Medicare- Managed Care AETNA AETNA MEDICARE ADV PPO/HMO/PFFS [id number] 03/29/2022-Prese nt [address] [place] [address] Medicare- Managed Care UHC MANAGED MEDICARE ADV UHC COMPLETE CHOICE MEDICARE ADV PPO [id number] 03/29/2016-Prese nt [address] [address] [place] [address] Medicare- Managed Care AETNA AETNA MEDICARE ADV PPO/HMO/PFFS [id number] 03/29/2022-Prese nt [address] [place] [address] Medicare- Managed Care UHC MANAGED MEDICARE ADV UHC COMPLETE CHOICE MEDICARE ADV PPO [id number] 03/29/2016-Prese nt [phone] [address] [address] [place] [address] Medicare- Managed Care AETNA AETNA MEDICARE ADV PPO/HMO/PFFS [id number] Effective for all dates [address] [place] [address] Medicare- Managed Care UHC MANAGED MEDICARE ADV UHC COMPLETE CHOICE MEDICARE ADV PPO [id number] 03/29/2016-Prese nt [address] [address] [place] [address] Medicare- Managed Care UHC MANAGED MEDICARE ADV UHC COMPLETE CHOICE MEDICARE ADV PPO [id number] 03/29/2016-Prese nt [phone] [address] [address] [place] [address] Medicare- Managed Care AETNA AETNA MEDICARE ADV HMO/PPO [id number] Effective for all dates [address] [place] [address] Medicare- Managed Care UHC MANAGED MEDICARE ADV UHC COMPLETE CHOICE MEDICARE ADV PPO [id number] 03/29/2016-Prese nt [phone] [address] [address] [place] [address] Medicare- Managed Care UHC MANAGED MEDICARE ADV UHC COMPLETE CHOICE MEDICARE ADV PPO [id number] 03/29/2016-Prese nt [phone] [address] [address] [place] [address] Medicare- Managed Care UHC MANAGED MEDICARE ADV UHC COMPLETE CHOICE MEDICARE ADV PPO [id number] 03/29/2016-Prese nt [phone] [address] [address] [place] [address] Medicare- Managed Care [facility] MANAGED MEDICARE ADV UHC COMPLETE CHOICE MEDICARE ADV PPO [id number] 03/29/2016-Prese nt [phone] [address] [address] [place] [address] Medicare- Managed Care Care Teams Cosmetic Counselor Relationship Specialty Start Date End Date Flor Garcia MD [address] [place] [address] PCP - General Family Medicine 09/21/23
--- OUTSIDE RECORDS SUMMARY | 2024-05-11 01:20 | XMS_ITS ---
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
--- OUTSIDE RECORDS SUMMARY | 2024-05-11 01:20 | XMS_ITS ---
Author Organization [facility] Address [address] [place] [address] Care Team Providers Care Marine Fire Fighter Name Role Phone zzzzMigration, zzzzProvider Unavailable Unav ailable Allergies No Known Allergies REASON FOR VISIT EMR-Kraig Encounters Encounter Location Date Provider Diagnosis [facility] [address] [place] [address] 01/17/2023 zzzzProvider zzzzMigration Plan Of Treatment No Information Progress Notes * Shameka DANIELSON LDOB: [birth year] (73 yo F)Acc No.[id number]:01/17/2023 Patient: Shameka TAN :1950 A ge:72 Y S ex:Female Address:[facility] [address], [place], [address] Subjective: * Chief Complaints: * E MR-Kraig [...]
--- OUTSIDE RECORDS SUMMARY | 2024-05-11 01:20 | XMS_ITS | Clinical Summary ---
Author Organization [facility] Address [address] [place] [address] Care Team Providers Care Director Video Name Role Phone Flor Garcia MD Primary Care Provider [phone] Source Comments [facility],non-owned Affiliates and Associated Physician Practices is amultiple site organization consisting of ambulatory clinics and hospital sitesin [place], [place], [place] and [place]. This disclosure is being madepursuant to the Care Everywhere program and may not contain all information available regarding this patient. Last updated 17.[facility] Allergies No known active allergies Medications * [...] shoulder 09/28/2019 Overview (09/28/2019): Surgical removed at [facility] Meningioma, recurrent of brain 01/29/2015 Encounters Date Type Department Care Team Description 03/28/2024 2:45 PM TABLE TENDER Office Visit [facility] - Neurosurgery [facility], [place] [address] Praveen Atkinson MD Coppens, Jeroen R, MD Meningioma (HCC) (Primary Dx) 03/28/2024 1:00 PM TABLE TENDER Office Visit [facility] - Rad/Onc [address] [place] [address] Praveen Atkinson MD Meningioma, recurrent of brain (HCC) (Primary Dx) 03/28/2024 12:58 PM TABLE TENDER - 04/29/2024 11:59 PM TABLE TENDER Hospital Encounter [facility] - Radiation Oncology [address] [place] [address] Praveen Atkinson MD Discharge Disposition: Home or Self Care 03/28/2024 10:30 AM TABLE TENDER - 03/28/2024 12:57 PM TABLE TENDER Hospital Encounter [facility] MRI [address] [place] [address] Praveen Atkinson MD Discharge Disposition: Home or Self Care 03/28/2024 Travel from Last 3 Months Immunizations Name Administration Dates Next Due [employer] primary monoval ent 12+ yr 0.3mL Purple [...] Comments Blood Pressure 134/68 03/28/2024 1:03 PM TABLE TENDER Pulse 67 03/28/2024 1:03 PM TABLE TENDER Temperature 36.7 C (98 F) 03/28/2024 1:03 PM TABLE TENDER Respiratory Rate 18 03/28/2024 1:03 PM TABLE TENDER Oxygen Saturation 100% 03/28/2024 1:03 PM TABLE TENDER Inhaled Oxygen Concentration - - Weight 75.8 kg (167 lb) 03/28/2024 12:01 PM TABLE TENDER Height 162.6 cm (5' 4 ) 03/28/2024 12:01 PM TABLE TENDER Body Mass Index 28.67 03/28/2024 12:01 PM TABLE TENDER Plan of Treatment Upcoming Encounters Date Type Department Care Team (Late st Contact Info) Description 12/18/2024 8:30 AM CDT Appointment [facility] MRI [address] [place] [address] Praveen Atkinson MD [address] [place] [address] 12/18/2024 10:00 AM CDT Appointment [facility] RAD ONC [address] [place] [address] Praveen Atkinson MD [facility] [place] [address] Health Maintenance Due Date Last Done Comments [...] BRAIN WWO CONTRAST Routine 03/28/2024 11:46 AM TABLE TENDER Meningioma, recurrent of brain (HCC) from Last 3 Months Results * MRI BRAIN WWO CONTRAST PERFUSION (03/28/2024 11:46 AM TABLE TENDER) Anatomical Region Laterality Modality Head Magnetic Resonan ce 04/01/2024 1:40 PM TABLE TENDER Impressions 04/01/2024 2:02 PM TABLE TENDER IMPRESSION: 1. No evidence of disease progression. [...] 04/01/2024 2:02 PM Narrative 04/01/2024 2:02 PM TABLE TENDER PROCEDURE: MRI BRAIN WWO CONTRAST, DATE/TIME OF EXAM: 03/28/2024 11:46 AM, LOCATION [facility] INDICATION: D32.0: Meningioma, recurrent of [...] DATE/TIME OF EXAM: 03/28/2024 11:46 AM, LOCATION [facility] INDICATION: D32.0: Meningioma, recurrent of [...] AETNA MEDICARE ADV AETNA MEDICARE ADV HMO/PPO/PFFS [id number] 03/29/2022-Prese nt [address] [place] [address] Medicare- Managed Care AETNA AETNA MEDICARE ADV PPO/HMO/PFFS [id number] 03/29/2022-Prese nt [address] [place] [address] Medicare- Managed Care UHC MANAGED MEDICARE ADV UHC COMPLETE CHOICE MEDICARE ADV PPO [id number] 03/29/2016-Prese nt [phone] [address] [address] [place] [address] Medicare- Managed Care AETNA AETNA MEDICARE ADV PPO/HMO/PFFS [id number] 03/29/2022-Prese nt [address] [place] [address] Medicare- Managed Care UHC MANAGED MEDICARE ADV UHC COMPLETE CHOICE MEDICARE ADV PPO [id number] 03/29/2016-Prese nt [phone] [address] [address] [place] [address] Medicare- Managed Care AETNA AETNA MEDICARE ADV PPO/HMO/PFFS [id number] 03/29/2022-Prese nt [address] [place] [address] Medicare- Managed Care UHC MANAGED MEDICARE ADV UHC COMPLETE CHOICE MEDICARE ADV PPO [id number] 03/29/2016-Prese nt [phone] [address] [address] [place] [address] Medicare- Managed Care AETNA AETNA MEDICARE ADV PPO/HMO/PFFS [id number] 03/29/2022-Prese nt [address] [place] [address] Medicare- Managed Care UHC MANAGED MEDICARE ADV UHC COMPLETE CHOICE MEDICARE ADV PPO [id number] 03/29/2016-Prese nt [phone] [address] [address] [place] [address] Medicare- Managed Care AETNA AETNA MEDICARE ADV PPO/HMO/PFFS [id number] 03/29/2022-Prese nt [address] [place] [address] Medicare- Managed Care UHC MANAGED MEDICARE ADV UHC COMPLETE CHOICE MEDICARE ADV PPO [id number] 03/29/2016-Prese nt [phone] [address] [address] [place] [address] Medicare- Managed Care AETNA AETNA MEDICARE ADV PPO/HMO/PFFS [id number] 03/29/2022-Prese nt [address] [place] [address] Medicare- Managed Care UHC MANAGED MEDICARE ADV UHC COMPLETE CHOICE MEDICARE ADV PPO [id number] 03/29/2016-Prese nt [address] [address] [place] [address] Medicare- Managed Care AETNA AETNA MEDICARE ADV PPO/HMO/PFFS [id number] 03/29/2022-Prese nt [address] [place] [address] Medicare- Managed Care UHC MANAGED MEDICARE ADV UHC COMPLETE CHOICE MEDICARE ADV PPO [id number] 03/29/2016-Prese nt [phone] [address] [address] [place] [address] Medicare- Managed Care AETNA AETNA MEDICARE ADV PPO/HMO/PFFS [id number] Effective for all dates [address] [place] [address] Medicare- Managed Care UHC MANAGED MEDICARE ADV UHC COMPLETE CHOICE MEDICARE ADV PPO [id number] 03/29/2016-Prese nt [phone] [address] [address] [place] [address] Medicare- Managed Care UHC MANAGED MEDICARE ADV UHC COMPLETE CHOICE MEDICARE ADV PPO [id number] 03/29/2016-Prese nt [address] [address] [place] [address] Medicare- Managed Care AETNA AETNA MEDICARE ADV HMO/PPO [id number] Effective for all dates [address] [place] [address] Medicare- Managed Care UHC MANAGED MEDICARE ADV UHC COMPLETE CHOICE MEDICARE ADV PPO [id number] 03/29/2016-Prese nt [address] [address] [place] [address] Medicare- Managed Care UHC MANAGED MEDICARE ADV UHC COMPLETE CHOICE MEDICARE ADV PPO [id number] 03/29/2016-[facility] [address] [address] [place] [address] Medicare- Managed Care [facility] MANAGED MEDICARE ADV [facility] COMPLETE CHOICE MEDICARE ADV PPO [id number] 03/29/2016-[facility] [address] [address] [place] [address] Medicare- Managed Care [facility] MANAGED MEDICARE ADV [facility] COMPLETE CHOICE MEDICARE ADV PPO [id number] 03/29/2016-[facility] [address] [address] [place] [address] Medicare- Managed Care Care Teams Director Video Relationship Specialty Start Date End Date Flor Garcia MD [address] [place] [address] PCP - General Family Medicine 09/21/23
--- OUTSIDE RECORDS SUMMARY | 2024-05-11 01:20 | XMS_ITS | Continuity of Care Document ---
Author Organization [facility] Address [address] [place] [address] [place] [address] Phone Care Team Providers Care Outside Food Server Name Role Phone Deras OD, Steve Unavailable Unavailable Procedures Procedure Date Office/outpatient Visit, [facility] Office/outpatient Visit, New Advance Directives Directive Yes / No Effective Date File Name No Information Encounters Encounter Description Practice Location Reason(s) For Visit Diagnoses Date Provider Providers Copied on Encounter Office/outpat ient Visit, [facility], [address] [place] [address] [address], [place], [place], [id number], [place] tel:[phone] [facility] No Information 7-200 9 Deras OD Steve. [address] [facility] , [address], [place], [address], [place]. tel:[phone] Office/outpat ient Visit, [facility], [address] [place] [address] [address], [place], [place], [id number], [place] tel:[phone] [facility] No Information 8-200 7 Deras OD Steve. [address] [facility] , [address], [place], [address], [place]. tel:[phone] Family History Family Member Type Diagnosis Age At Onset No Information Payers Payer name Insurance type Covered alliance party ID Authoriza tion(s) No Information Social [...]
--- OUTSIDE RECORDS SUMMARY | 2024-05-11 01:20 | XMS_ITS | Patient Health Record ---
Author Organization [facility] Address [address] [facility] [address] [place] [address] Support Name Relationship Address Phone Shameka Kelsey Guarantor Unknown [phone] Allergies No Known Allergies Reason For Referral No Information Problems Problem Type SNOMED Code ICD Code Onset Dates Problem Status W/U Status Risk Notes Problem Actinic keratosis (387269) Actinic keratosis (L57.0) Active confirmed Problem Seborrheic keratosis (36724135) Other seborrheic keratosis (L82.1) Active confirmed Problem History of malignant melanoma of the skin (661867282705) Personal history of malignant melanoma of skin (Z85.820) Active confirmed Plan Of Treatment No Information Insurance Providers Payer Name Payer Address Payer Phone Subscriber Number Group Number Insured Name Patient Relationship to Insured Coverage Start Date Coverage End Date DO NOT USE - [employer] [address] [address] [place], [place] [id number] Shameka Kelsey Self - patient is the insured 7
[2024-05-11] MEDS: LACTATED RINGERS 1,000 ML 30 ML IV CONT ×3 (06:30→10:42)
[2024-05-11 06:37] LABS: Urine Cotinine NEGATIVE
--- NOTE | 2024-05-11 07:04 | P.PNAN_ITS ---
Anes - Initial Pre Proc Eval Procedure: Operation Date: 05/11/24 07:30 Proposed Procedures p Mini Abdominoplasty with Possible Liposuction - Michael Gregorio MD Date/Time: 05/11/24 07:04 Surgeon: Michael Gregorio MD Pre Op Diagnosis: skin laxity Patient Data Age: 73 Gender: F Height: 1.63 m Weight: 69.4 kg Allergies Allergy/AdvReac Type Severity Reaction Status Date / Time No Known Allergies Allergy Verified 05/05/24 12:16 Home Medications ?Medication ?Instructions ?Recorded ?Confirmed ?Type estradiol 1 mg tablet 0.5 mg PO DAILY 04/17/19 05/05/24 History alprazolam 0.25 mg tablet 0.25 mg PO DAILY PRN Anxiety 05/27/20 05/05/24 History cholecalciferol (vitamin D3) 50 50 mcg PO DAILY 11/28/20 05/05/24 History mcg (2,000 unit) capsule multivit with minerals-iron 18 1 tablet PO DAILY 09/04/22 05/05/24 History mg-folic ac 400 mcg-vit K 25 mcg tablet (Adults Multivitamin) ezetimibe 10 mg tablet (Zetia) 10 mg PO DAILY #30 tabs 02/29/24 05/05/24 Rx cyanocobalamin (vitamin B-12) 1,000 mcg PO DAILY 05/03/24 05/05/24 History 1,000 mcg capsule amoxicillin 875 mg-potassium 1 tablet PO BID 10 days #20 tabs 05/05/24 05/05/24 Rx clavulanate 125 mg tablet Laboratory Tests 05/11/24 06:18 Cotinine Negative Patient hx anesthesia problems: none Family hx anesthesia problems: none Results Review: All pre-operative results and documents have been reviewed as part of the pre- operative evaluation. [facility] Past Medical History Medical History Osteoporosis Hyperlipidemia Subungual malignant melanoma History of benign meningioma of brain Diverticulitis Back pain Arthritis Surgical History Surgical History History of appendectomy H/O: hysterectomy History of bowel resection History of laminectomy History of sinus surgery 2x Family History Family History Mother Family history of osteoporosis Patient's mother is in good health Father Family history of alcoholism Family history of cardiomyopathy Family history of diabetes mellitus in first degree relative Patient's father is Social History Social History Smoking status: Never smoker Second hand tobacco smoke exposure: No Alcohol intake: current Drinks per week: 1 Substance use: never Substance use type: does not use Living arrangements: with family Additional living arrangements comments: [employer] Occupation/Education: retired Gender identity (if verbalized by the patient): Female Spiritual care concerns: No Anes - Eval Final PreProcedure Day of Procedure 05/11/24 07:04 Patient weight: overweight Heart: regular rate and rhythm Lungs: clear to auscultation Airway: Mallampati scale class II Neurological: alert and oriented Last oral intake: >/= 8 hours ASA classification: II Emergent: no Anesthetic plan: proceed Anesthesia type and monitoring: general ETT and standard monitoring Results Review: All pre-operative results and documents have been reviewed as part of the pre- operative evaluation. Informed Consent: The patient's anesthetic plan and its attendant risks and benefits were discussed with the patient/family/POA. Questions were solicited and answers provided to the satisfaction of the patient/family/POA.
--- NOTE | 2024-05-11 07:14 | WPDHPUPDATE1 ---
History and Physical Update Update Date/Time: 05/11/24 07:14 History and Physical has been reviewed, including an updated exam of the patient. There are NO changes in the patient's condition. Risks, benefits, and alternatives have been discussed and questions answered. Patient agrees to proceed with procedure.
--- NOTE | 2024-05-11 07:14 | W.PM.PROC2 ---
Procedure Note - Detailed Date of Procedure 05/11/24 Pre-op Diagnosis skin laxity Post-op Diagnosis Same Procedure Performed Mini abdominoplasty with suction lipectomy Surgeon Michael Gregorio MD Anesthesia General Findings Lipoaspirate: 2,000 cc Tissue removed: 683.5 grams Description of Procedure They are here today for the above procedures. Previously and again today the risks, benefits, alternatives were discussed in extensive detail. I wanted them to be very realistic about the risks involved as well as expectations. We discussed aftercare and what to monitor for. I was very upfront about the risks of wound breakdown leading to loss of skin, open wounds, and need for additional procedures with permanent abdominal deformity. A significant portion of the discussion was regarding where we would complete suction lipectomy as well as risks of this and possible skin laxity. Outlining mini abdominoplasty scar locations, expected improvements, and limitations (again today). I was again very honest that she will have limit to her improvement and would benefit much more from full abdominoplasty; however, with her current life situation she is unwilling to do this. We discussed DVT/PE risks and management. Made sure answered all of their questions to their satisfaction today and consent was obtained. She was marked in the preoperative holding area with her verification. The patient was taken to the operating room. Anesthesia was provided by anesthesiology. I placed the patient in a flexed position to verify the upper and lower markings would reach. I then placed supine. A thorough abdominal examination was completed. Stab incisions were made and tumescent solution infiltrated. Stab incisions were made and tumescent solution was infiltrated. Once adequate time was allowed for hemostasis a 5mm basket and 4mm steve cannula were utilized to complete suction lipectomy based on S.A.F.E. technique in multiple planes and passes. Suction lipectomy continued to result based on pre-operative planning, intra-operative observation, and rolling pinch test which were in full agreement. This was only in the areas discussed supraumbilical, infraumbilical and some flanks given the constraints of positioning and procedure. A 10 blade was used to make the lower incision. I continued dissection down to the level of fascia. Elevated just what was necessary for excision of the tissue and a 10 blade was used to make an upper incision for mini abdominoplasty tissue resection. The patient was flexed and starting from superior to inferior I obliterated space with 2-0 Vicryl until I reached my lower planned scar line. There was minimal undermining. 15 Kojo drain was placed. I then approximated using a 3 point suture with 2-0 Vicryl followed by 2-0 PDO Stratafix, 3-0 Stratafix ,running subcuticular 4-0 Monocryl, and tissue glue. Fluffs and an abdominal binder were placed. The patient was transferred to the bed in a flexed position. Awoken and taken to the PACU without difficulty. All instrument and sponge counts were correct at the end of the case. Estimated Blood Loss 50 Drains Yes (15 Kojo) Packing No Pathology None sent Complications No immediate complications Condition Stable Disposition PACU
[2024-05-11] MEDS: TRANEXAMIC ACID 1,000MG/ISO100 1,000 MG/100 ML BAG 200 MG IVPB (07:26)
[2024-05-11] MEDS: LACTATED RINGERS IRRIG 1,000 ML, LIDOCAINE 1% LOCAL INJ 50 ML, EPINEPHrine HCL INJ 1 MG... INFILTRATE (07:26)
[2024-05-11] MEDS: ceFAZolin 2 GM/D5W 50 ML 2 GM/50 ML BAG IVPB (07:26)
[2024-05-11] MEDS: fentaNYL CITRATE INJ (*CRX) 100 MCG/2 ML VIAL 25 MCG IV PUSH ×6 (10:04→11:55)
[2024-05-11] MEDS: ONDANSETRON INJ 4 MG/2 ML VIAL IV PUSH (10:19)
[2024-05-11] MEDS: diphenhydrAMINE HCl INJ 50 MG/ML VIAL 12.5 MG IV PUSH (10:39)
[2024-05-11] MEDS: PROMETHAZINE HCL 25 MG/ML AMPUL 12.5 MG IV PUSH (11:50)
== END 2024-05-11 14:00 | disposition home or self-care (01) ==
PROVIDERS: PCP Family Medicine; Visit Provider Surgery Plastic and Reconstructive Surgery
PROC: (CPT 15830; principal; 2024-05-11 07:30)
DX: Z41.1 Encounter for cosmetic surgery (principal); L57.4 Cutis laxa senilis; M81.0 Age-related osteoporosis without current pathological fracture; E78.00 Pure hypercholesterolemia, unspecified; M19.90 Unspecified osteoarthritis, unspecified site; Z98.890 Other specified postprocedural states; Z98.1 Arthrodesis status; Z90.49 Acquired absence of other specified parts of digestive tract; Z87.19 Personal history of other diseases of the digestive system; Z85.820 Personal history of malignant melanoma of skin; Z86.011 Personal history of benign neoplasm of the brain; Z82.49 Family history of ischemic heart disease and other diseases of the circulatory system
CPT/HCPCS: 15830; 15847; 15877; 80307; J0171; J0690; J1100; J1200; J2003; J2405; J2550; J2704; J3010; J7120

== ENCOUNTER 2024-07-14 10:51 | Outpatient (CLI) | payer MEDICARE, SELFPAY ==
--- OUTSIDE RECORDS SUMMARY | 2024-07-13 15:28 | XMS_ITS | Continuity of Care Document ---
Author Organization [facility] Address [address] [facility] [address] [place] [address] Phone Care Team Providers Care Cracker And Cookie Machine Operator Name Role Phone Doser Ramakrishna VARMA DPM Unavailable Unavailab le Allergies, Adverse Reactions, Alerts Substance Reaction Status Criticality No Known Allergies Active No Inform ation Medications Medication Instructions Dosage Effective Dates (start - stop) Status Comments ezetimibe 10 mg tablet TAKE 1 TABLET BY MOUTH DAILY - Active tramadol 50 mg tablet TAKE 1 TABLET BY MOUTH EVERY 6 HOURS NEEDED FOR PAIN - Active celecoxib 200 mg capsule - Active docusate sodium 100 mg capsule TAKE ONE CAPSULE BY MOUTH TWICE DAILY - Active enoxaparin 40 mg/0.4 mL subcutaneous syringe ADMINISTER 1 SYRINGE UNDER THE SKIN DAILY - Active ondansetron HCl 4 mg tablet - Active amoxicillin 875 mg-potassium clavulanate 125 mg tablet - Active alprazolam 0.25 mg tablet - Active ibandronate 150 mg tablet TAKE 1 TABLET BY MOUTH EVERY MONTH - Active estradiol 1 mg tablet - Acti ve ciprofloxacin 500 mg tablet TAKE 1 TABLET BY MOUTH EVERY 12 HOURS FOR 10 DAYS - Active ondansetron 4 mg disintegrating tablet DISSOLVE 1 TABLET ON THE TONGUE THREE TIMES DAILY NEEDED - Active Procedures Procedure Date X-ray exam foot, minimum 3 views Mar-11- 2025 Office/outpatient visit,est, mod Mar-11- 2025 BMI Documented Above Normal Limit F/U Pl an Doc BMI Documented Below Normal Limit F/U Pl an Doc X-ray exam foot, minimum 3 views 2023 Global/Postop followup visit Correction Hallux Rigidus W/ Cheilectomy W/ Implant X-ray exam foot, minimum 3 views 2022 Office/outpatient visit,[facility] 2022 Advance Directives Directive Yes / No Effective Date File Name No Information Encounters Encounter Description Practice Location Reason(s) For Visit Diagnoses Date Provider Providers Copied on Encounter Office/outpat ient visit,est, mod [facility], [address] [address], [place], [place], [id number], [place] tel:[phone] [facility] Post Surgerypain (chief complaint)Jean-Pierre t pain (chief complaint) Pain in right footMetatars algia, right foot 5 Doser AVANI Durbin. [address], [id number] , [place]. tel:[phone] Referring Provider: Ramakrishna Arnold, [address] [place] [address], [place], [address] . tel:[phone] [facility], [address], [id number], [place] tel:[phone] [facility] Follow Up of right foot (chief complaint) Pain in right footHallux rigidus, right foot 4 Doser AVANI Durbin. [address] [address], [place], [place], [id number] , [place]. tel:[phone] Referring Provider: Ramakrishna Arnold, [address] [address], [place], [address] . tel:[phone] [facility], [address] [place] [address], [id number], [place] tel:[phone] [facility] No Information 4 Doser DPJohnie Durbin. [address] [facility] [address], [place], [place], [id number] , . tel:[phone] Referring Provider: Ramakrishna Arnold, [address] [facility] [address] [facility] [place], [address] . tel:[phone] [facility], [address], [id number], tel:[phone] [facility] Pain in right foot 4 Doser DPJohnie Durbin. [address] [address], [place], [place], [id number] , . tel:[phone] Office/outpat ient visit,[facility], [address], [id number], tel:[phone] [facility] Unsuccessful toe joint surgery (chief complaint) Pain in right footHallux rigidus, right foot 3 Doser DPJohnie Durbin. [address] [place] [address], [address] [address], [place], [place], [id number] , . tel:[phone] Family History Family Member Type Diagnosis Age At Onset Mother Problem (finding) Osteoporosis Father Problem (finding) Alcoholism Father Problem (finding) Heart Disease Father Problem (finding) Cancer, unknown Father Problem (finding) Diabetes Payers Payer name Insurance type Covered republican ID Steve polanco(s) [employer] Medicare [id number] Social History Type Description Quantity Date Captured Comments Alcohol Use Details Caffeine Use Details Unknown Tobacco Use Status Never smoked tobacco 2024 Smoking Status No Information Non-Smoking Tobacco Use Details : No Details Available : No Details Available Sex Female Vital Signs Date / Time: Height Weight BMI Pulse Rate Blood Pressure Temperature Respiratory Rate Body Surface Area Head Circumference Head Circ. Percentile Wt./Mj. Percentile BMI percentile Pulse Ox Inhaled Ox 2:59 PM 64.00 in 68.946 kg (152.00 lbs) 26.0 9 kg/m eter (2) Chief Complaint And Reason For Visit From encounter dated '06/06/2024 13:20'. Post Surgerypain (chief complaint). Description: Patient returns for her right foot. Foot pain (chief complaint) Reason For Referral Reason For Referral No Information History Of Present Illness Encounter Date Complaint History Of Prese nt Illness Post Surgerypain Patient returns for her right foot. Foot pain Follow Up of right foot Unsuccessful toe joint surgery Functional Status Date Functional Assessmen t No Information Instructions Date Instruction Additional Infor mation No Information Assessments Type Assessment Date assessment Metatarsalgia, right foot Patient Care Teams Name Effective Dates (start - stop) Status Members No Information
--- OUTSIDE RECORDS SUMMARY | 2024-07-13 15:28 | XMS_ITS | Encounter Summary ---
Author Organization [facility] Healthcare Address [address] [place] [address] Care Team Providers Care Assurance Analyst Name Role Phone Rozina Packer MD Primary Care Provider [phone] Michael Rivera MD Unavailable [phone] Unruly Evans MD Unavailable [phone] Flor Garcia MD Primary Care Provider [phone] Encounter Details Date Type Department Care Team (Late st Contact Info) Description 08/15/2020 Telephone [facility] [address] [place] [address] Nery Scott, RT Social History Tobacco Use Types Packs/Day Years Used Date Smoking Tobacco: Never Smokeless Tobacco: Never Alcohol Use Standard Drinks/Week Comments Yes 0 (1 standard drink = 0.6 oz pur e alcohol) 3-4 drinks/month Comments No Sex and Gender Information Value Date Recorded Sex Assigned at Not on file Legal Sex Female 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 Gender Identity Not on file Sexual Orientation Not on file Occupation Industry Job Start Date Job End Date TEACHER Not on file Not on file Not on file documented as of this encounter Plan of Treatment Not on file documented as of this encounter Visit Diagnoses Not on filedocumented in this encounter Care Teams Assurance Analyst Relationship Specialty Start Date End Date Rozina aPcker MD [address] [place] [address] [place] [address] PCP - General 04/30/17 05/21/24 Flor Garcia MD [address] [place] [place] [address] PCP - General Family Medicine 05/22/24 Michael Rivera MD [address] [place] [address] [place] [address] Surgeon Orthopedic Surgery 07/26/19 Unruly Evans MD [address] [place] [address] [place] [address] Scale Mechanic Dermatology 07/26/19 documented as of this encounter
--- OUTSIDE RECORDS SUMMARY | 2024-07-13 15:29 | XMS_ITS ---
Author Organization [facility] Address [address] [facility] [address] [place] [address] Care Team Providers Care Temperature Logging Operator Name Role Phone zzzzMigration, zzzzProvider Unavailable Unav ailable REASON FOR VISIT EMR-Kraig Encounters Encounter Location Date Provider Diagnosis [facility] [address] [facility] [address] [place] [address] 01/16/2023 zzzzProvider zzzzMigration Plan Of Treatment No Information Progress Notes * Shameka KELSEY LDOB: [birth year] (73 yo F)Acc No.[id number]:01/16/2023 Patient: Shameka TAN :1950 A ge:72 Y S ex:Female Address:[facility] [place], [address] Subjective: * Chief Complaints: * E MR-Kraig * Medical History: * Surgical History: * Hospitalization/Major Diagno stic Procedure: * Medications: Objective: * Vitals: * Physical Examination: Assessment: Plan: * Treatment: * Procedure Codes: * true * Date: Generated for Karlai roberto/Fashannong/eTransmitting on: 0 07/13/2024 03:28 PM CDT
--- OUTSIDE RECORDS SUMMARY | 2024-07-13 15:29 | XMS_ITS ---
Author Organization [facility] Address [address] [facility] [place] [address] Care Team Providers Care Director Of Anesthesia Services Name Role Phone Flor Garcia MD Primary Care Provider Active Problems Problem Noted Date Diagnosed Date Malignant melanoma of right upper extremity including shoulder 09/28/2019 Overview (09/28/2019): Surgical removed at 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 Past Treatment and Therapy Plans No past plan information found. Radiation Treatments * Course [id number] 05/31/2023 - 06/09/2023 Treatment Period Energy Fraction Dose Fractions Total Dose Plans Planned #[email or web address] 05/31/2023 - 06/09/2023 5 / 5 3,000 cGy Reference Points Delivered PTVbed 05/31/2023 - 06/09/2023 3,000 cGy
--- OUTSIDE RECORDS SUMMARY | 2024-07-13 15:29 | XMS_ITS | Clinical Summary ---
Author Organization [facility] Address [address] [place] [address] Care Team Providers Care Senior Energy Market Coordinator Name Role Phone Michael Rivera MD Unavailable [phone] Unruly Evans MD Unavailable [phone] Flor Garcia MD Primary Care Provider [phone] Allergies No known active allergies Medications estradioL [...] (06/29/2019): Added automatically from request for surgery [id number] Surgical History Surgery Date Site/Laterality Comments CRANIOTOMY [...] Depression well controlled with meds Arthritis Cancer (HCC) 05/2016 melanoma-right t humb-->surgery, no chemo or radiation. Abnormal cells 1 [...] on file Legal Sex Female 6:10 AM CLASSIFIED AD CLERK Gender Identity Not on file Sexual Orientation [...] Pneumococcal vaccine 65+ (2 of 2 - PPSV23) 01/14/2021 01/15/2020, 02/22/2018 Fall Risk Assessment 01/08/2022 [...] Read Routine (OP Routine) 05/25/2023 1:28 PM CLASSIFIED AD CLERK Screening mammogram, encounter for from Last 3 Months or Most Recently Relevant to Health Maintenance Results * Screening Mammogram Bilateral W Miguelangel (05/25/2023 1:28 PM CLASSIFIED AD CLERK) Anatomical Region Laterality Modality Breast Bilateral Mammography Narrative 05/25/2023 3:48 PM CLASSIFIED AD CLERK Examination: Screening Mammogram Bilateral W Miguelangel: 05/25/23 [...] Most Recently Relevant to Health Maintenance Insurance UHC MEDICARE ADVANTAGE [facility] MEDICARE Address: [address] [address] [place] [address] AETNA MEDICARE AETNA MEDICARE Advance Directives For more information, please contact: [phone] * Full Code (Latest Code Status on File) Date Activated Date Inactivated Comments 08/23/2020 9:09 AM 08/23/2020 1:55 PM Care Teams Senior Energy Market Coordinator Relationship Specialty Start Date End Date Flor Garcia MD [address] [place] [address] PCP - General Family Medicine 05/22/24 Michael Rivera MD Surgeon Orthopedic Surgery 07/26/19 Unruly Evans MD Travel Guide Dermatology 07/26/19
--- OUTSIDE RECORDS SUMMARY | 2024-07-13 15:29 | XMS_ITS | Encounter Summary ---
Author Organization [facility] Address [address] [place] [address] Care Team Providers Care Deputy Fire Marshal Name Role Phone Rozina Packer MD Primary Care Provider [phone] Flor Garcia MD Primary Care Provider Encounter Details Date Type Department Care Team (Late Contact Info) Description 12/10/2022 Lab Requisition [facility] - DermPath Lab [address] [facility], [place] [address] Fay Araujo MD [address] [place] [address] [place] [address] Neoplasm of uncertain behavior of skin; Other specified erythematous conditions Social History Tobacco Use Types Packs/Day Years Used Date Smoking Tobacco: Never Smokeless Tobacco: Never Alcohol Use Standard Drinks/Week Comments Yes 0 (1 standard drink = 0.6 oz pur e alcohol) Comments Unknown Sex and Gender Information Value Date Recorded Sex Assigned at Female 01/15/2022 12:08 PM CDT Legal Sex Female 6:17 AM ASSISTANT TO THE CEO Gender Identity Female 01/15/2022 12:08 PM CDT Sexual Orientation Not on file documented as of this encounter Plan of Treatment Upcoming Encounters Date Type Department Care Team ([facility] Contact Info) Description 12/18/2024 8:30 AM CDT Appointment [facility] MRI [address] [place] [phone] Praveen Atkinson MD [address] [place], [place] [address] 12/18/2024 10:00 AM CDT Appointment [facility] [address] [place] [address] Praveen Atkinson MD [address] [place] [address] documented as of this encounter Procedures Procedure Name Priority Date/Time Associated Diagnosis Comments DERMATOPATHOLOGY Routine 12/10/2022 3:33 AM CDT Neoplasm of uncertain behavior of skin Other specified erythematous conditions documented in this encounter Results * DERMATOPATHOLOGY (12/10/2022 3:33 AM CDT) Case Report Dermatopathology Report Case: [id number] Authorizing Provider: Fay Araujo MD Collected: 12/10/2022 03:33 AM Ordering Location: [facility] DermPath Lab Received: 12/11/2022 12:44 [...] The specimen is serially sectioned and a pharmaceutical service representative section is submitted in cassette 1. Jar 1. 3 4:27 PM CDT DERMATOPATHOLOGY LABORATORY Microscopic Description Specimen A. SKIN, left jawline: Within the dermis, there is an infiltrate composed of lymphocytes and histiocytes, including multinucleated type giant cells. Some histiocytes contain flakes of material consistent with keratin. 3 4:27 PM CDT DERMATOPATHOLOGY LABORATORY Disclaimer An [...] purposes. Billing Codes Specimen Charges Stain Charges [id number] 1 3 4:27 PM CDT DERMATOPATHOLOGY LABORATORY Embedded Images 3 4:27 PM CDT DERMATOPATHOLOGY LABORATORY Pathology/Cytolo gy TISSUE SPECIMEN FROM SKIN / Unknown 12/10/2022 3:33 AM CDT 12/11/2022 12:44 PM CDT us Fay Araujo MD LAB - PATHOLOGY/CYTOLOGY ORDERAB LES Final Result DERMATOPATHOLOGY LABORATORY [facility] - Department of Dermatology [facility] Specialized Medicine [address] [place] [address], [address] [phone] documented in this encounter Visit Diagnoses Diagnosis Neoplasm of uncertain behavior of skin Other specified erythematous conditions documented in this encounter Care Teams Deputy Fire Marshal Relationship Specialty Start Date End Date Rozina Packer MD [facility] [place] [address] PCP - General Family Medicine 09/28/19 09/20/23 Flor Garcia MD [address] [place] [address] PCP - General Family Medicine 09/21/23 documented as of this encounter
--- OUTSIDE RECORDS SUMMARY | 2024-07-13 15:29 | XMS_ITS | Patient Health Record ---
Author Organization [facility] Address [address] [facility] [address] [place] [address] Support Name Relationship Address Phone Shameka Kelsey Guarantor Unknown [phone] Allergies No Known Allergies Reason For Referral No Information Problems Problem Type SNOMED Code ICD Code Onset Dates Problem Status W/U Status Risk Notes Problem Actinic keratosis (575544) Actinic keratosis (L57.0) Active confirmed Problem Seborrheic keratosis (25517421) Other seborrheic keratosis (L82.1) Active confirmed Problem History of malignant melanoma of the skin (318124239060) Personal history of malignant melanoma of skin (Z85.820) Active confirmed Plan Of Treatment No Information Insurance Providers Payer Name Payer Address Payer Phone Subscriber Number Group Number Insured Name Patient Relationship to Insured Coverage Start Date Coverage End Date DO NOT USE - [employer] [address] [address] [place], [place] [id number] Shameka Kelsey Self - patient is the insured 7
--- OUTSIDE RECORDS SUMMARY | 2024-07-13 15:29 | XMS_ITS | Referral Summary ---
Author Organization [facility] Address [address] [place] [address] Care Team Providers Care Firewood Cutter Name Role Phone Michael Rivera MD Unavailable [phone] Unruly Evans MD Unavailable [phone] Flor Garcia MD Primary Care Provider [phone] Allergies No known active allergies Medications estradioL [...] (06/29/2019): Added automatically from request for surgery [id number] Social History Tobacco Use Types Packs/Day Years Used Date Smoking Tobacco: Never Smokeless Tobacco: Never Alcohol Use Standard Drinks/Week Comments Yes 0 (1 standard drink = 0.6 oz pur e alcohol) 3-4 drinks/month Comments No Sex and Gender Information Value Date Recorded Sex Assigned at Not on file Legal Sex Female 6:10 AM ADMINISTRATIVE LIBRARY ASSISTANT Gender Identity Not on file Sexual [...] Read Routine (OP Routine) 05/25/2023 1:28 PM ADMINISTRATIVE LIBRARY ASSISTANT Screening mammogram, encounter for from Last 3 Months or Most Recently Relevant to Health Maintenance Results * Screening Mammogram Bilateral W Miguelangel (05/25/2023 1:28 PM ADMINISTRATIVE LIBRARY ASSISTANT) Anatomical Region Laterality Modality Breast Bilateral Mammography Narrative 05/25/2023 3:48 PM ADMINISTRATIVE LIBRARY ASSISTANT Examination: Screening Mammogram Bilateral W Miguleangel: 05/25/23 Clinical: Screening mammogram, encounter for. Prior [...] to Health Maintenance Insurance UHC MEDICARE ADVANTAGE AETNA MEDICARE AETNA MEDICARE Advance Directives For more information, please contact: [phone] * Full Code (Latest Code Status on File) Date Activated Date Inactivated Comments 08/23/2020 9:09 AM 08/23/2020 1:55 PM Care Teams Firewood Cutter Relationship Specialty Start Date End Date Flor Garcia MD [address] [place] [address] PCP - General Family Medicine 05/22/24 Michael Rivera MD Surgeon Orthopedic Surgery 07/26/19 Unruly Evans MD Sales And Marketing Agent Dermatology 07/26/19
--- OUTSIDE RECORDS SUMMARY | 2024-07-13 15:29 | XMS_ITS ---
Author Organization [facility] Address [address] [facility] [facility] [address] [place] [address] Care Team Providers Care Exhibits Manager Name Role Phone zzzzMigration, zzzzProvider Unavailable Unav ailable Allergies No Known Allergies REASON FOR VISIT EMR-Kraig Encounters Encounter Location Date Provider Diagnosis [facility] [address] [facility] [facility] [address] [place] [address] 01/17/2023 zzzzProvider zzzzMigration Plan Of Treatment No Information Progress Notes * Shameka KELSEY LDOB: [birth year] (73 yo F)Acc No.[id number]:01/17/2023 Patient: Shameka TAN :1950 A ge:72 Y S ex:Female Address:[facility] [address], [place], [address] Subjective: * Chief Complaints: * E MR-Kraig * Medical History: * Surgical History: * Hospitalization/Major Diagno stic Procedure: * Social History: M igrated Social History: M igrated Social History: Substance Use :: Tobacco :: Never. * Medications: * Allergies: N .K.D.A.no[Allergies Verified] Objective: * Vitals: * Physical Examination: Assessment: Plan: * Treatment: * Procedure Codes: * true * Date: Generated for Karlai ng/Fashannong/eTransmitting on: 0 07/13/2024 03:28 PM CDT
--- OUTSIDE RECORDS SUMMARY | 2024-07-13 15:29 | XMS_ITS | Clinical Summary ---
Author Organization [facility] Address [address] [facility] [place] [address] Care Team Providers Care Tagman Name Role Phone Flor Garcia MD Primary Care Provider [phone] Source Comments [facility],non-owned Affiliates and Associated Physician Practices is amultiple site organization consisting of ambulatory clinics and hospital sitesin [place], [place], [place] and [place]. This disclosure is being madepursuant to the Care Everywhere program and may not contain all information available regarding this patient. Last updated 17.[facility] Allergies No known active allergies Medications * Be aware that medications may not be up to date on this document. Alwaysverify current medications with the patient. Vitamin D3, cholecalciferol , 2000 UNITS tablet Take 1 (one) tablet [...] shoulder 09/28/2019 Overview (09/28/2019): Surgical removed at [facility] U Meningioma, recurrent of brain 01/29/2015 Encounters Date Type Department Care Team Description 03/28/2024 12:58 PM SPLUNK DEVELOPER - 04/29/2024 11:59 PM SPLUNK DEVELOPER Hospital Encounter [facility] - Radiation Oncology [address] [place] [address] Praveen Atkinson MD Discharge Disposition: Home or Self Care from Last 3 Months Immunizations Immunization Administration Dates Next Due Covid Pfizer primary monoval ent 12+ yr 0.3mL Purple [...] Recorded Patient Health Questionnaire-2 Score 0 03/28/2024 Comments Unknown Sex and Gender Information Value Date Recorded Sex Assigned at Female 01/15/2022 12:08 PM CDT Legal Sex Female 6:17 AM SPLUNK DEVELOPER Gender Identity Female 01/15/2022 12:08 PM CDT Sexual Orientation Not on file Last Filed Vital Signs Vital Sign Reading Time Taken Comments Blood Pressure 134/68 03/28/2024 1:03 PM SPLUNK DEVELOPER Pulse 67 03/28/2024 1:03 PM SPLUNK DEVELOPER Temperature 36.7 C (98 F) 03/28/2024 1:03 PM SPLUNK DEVELOPER Respiratory Rate 18 03/28/2024 1:03 PM SPLUNK DEVELOPER Oxygen Saturation 100% 03/28/2024 1:03 PM SPLUNK DEVELOPER Inhaled Oxygen Concentration - - Weight 75.8 kg (167 lb) 03/28/2024 12:01 PM SPLUNK DEVELOPER Height 162.6 cm (5' 4 ) 03/28/2024 12:01 PM SPLUNK DEVELOPER Body Mass Index 28.67 03/28/2024 12:01 PM SPLUNK DEVELOPER Plan of Treatment Upcoming Encounters Date Type Department Care Team (Late st Contact Info) Description 12/18/2024 8:30 AM CDT Appointment [facility] [address] [place] [phone] [place] [address] [place] [address] 12/18/2024 10:00 AM CDT Appointment [facility] [address] [place], [place] [phone] Praveen Atkinson MD [address] [place] [address] Health Maintenance Due Date Last Done Comments [...] VACCINE (3 - season) 2023 05/25/2020, 05/03/2020 DEPRESSION SCREENING 03/29/2024 03/28/2024 MEDICARE AWV CALENDAR YEAR 2024 INFLUENZA VACCINE (Season Ended) 2024 01/09/2017 MAMMOGRAM 05/25/2025 05/25/2023, 04/30, 03/13/2022, Additional history [...] complete this topic MENINGOCOCCAL (Group B) VACCINE SHARED DECISION-MAKING Aged Out No longer eligible based on patient's age to complete this topic MENINGOCOCCAL GROUPS A/C/Y/W VACCINE Aged Out No longer eligible based on patient's age to complete this topic Insurance AETNA MEDICARE ADV [facility] MANAGED MEDICARE ADV [facility] MANAGED MEDICARE ADV MANAGED MEDICARE ADV [address]NAGED MEDICARE ADV [address] MANAGED MEDICARE ADV AETNA AETNA UHC MANAGED MEDICARE ADV AETNA [facility] MANAGED MEDICARE ADV AETNA [facility] MANAGED MEDICARE ADV Member Subscriber Plan / Payer (Ef fective 2016-Present) Name:Shameka Kelsey Relation to Subscriber:Self Name:SHAMEKA KELSEY Payer ID:[id number] ([facility]) Type:Medicare-Managed Care Address: [place] [id number] AETNA [facility] MANAGED MEDICARE ADV AETNA [facility] MANAGED MEDICARE ADV AETNA [facility] MANAGED MEDICARE ADV AETNA [facility] MANAGED MEDICARE ADV AETNA [facility] MANAGED MEDICARE ADV Care Teams Tagman Relationship Specialty Start Date End Date Flor Garcia MD [address] [place] [id number] PCP - General Family Medicine 09/21/23
--- OUTSIDE RECORDS SUMMARY | 2024-07-13 15:29 | XMS_ITS | Continuity of Care Document ---
Author Organization [facility] Address [address] [place] [address] [place] [address] Phone Care Team Providers Care Demo Coordinator Name Role Phone Deras OD, Steve Unavailable Unavailable Procedures Procedure Date Office/outpatient Visit, [facility] Office/outpatient Visit, New Advance Directives Directive Yes / No Effective Date File Name No Information Encounters Encounter Description Practice Location Reason(s) For Visit Diagnoses Date Provider Providers Copied on Encounter [place] [facility] [place] [address] [place] [address] [address], [place], [place], [id number], [place] tel:[phone] [facility] No Information 7-200 9 Deras OD Steve. [address] [facility] , [address], [place], [address], [place]. tel:[phone] Office/outpat ient Visit, [facility], [address] [place] [address] [address], [place], [place], [id number], [place] tel:[phone] [facility] No Information 8-200 7 Deras OD Steve. [address] [facility] , [address], [place], [address], [place]. tel:[phone] Family History Family Member Type Diagnosis Age [...]
--- OUTSIDE RECORDS SUMMARY | 2024-07-14 10:56 | XMS_ITS | Encounter Summary ---
Author Organization [facility] Address [address] [facility] [place] [address] Care Team Providers Care Visual Basic .Net Developer Name Role Phone Rozina Packer MD Primary Care Provider Flor Garcia MD Primary Care Provider [phone] Encounter Details Date Type Department Care Team (Late Contact Info) Description 12/10/2022 Lab Requisition [facility] - DermPath Lab [address], [place] [address] Fay Araujo MD [address] [place] [address] [place] [address] Neoplasm of uncertain behavior of [...] PM CDT Legal Sex Female 6:17 AM TECHNICAL INSTRUCTOR COURSE DEVELOPER Gender Identity Female 01/15/2022 12:08 PM CDT Sexual Orientation Not on file documented as of this encounter Plan of Treatment Upcoming Encounters Date Type Department Care Team ([facility] Contact Info) Description 12/18/2024 8:30 AM CDT Appointment [facility] MRI [address] [place] [phone] Praveen Atkinson MD [address] [place], [place] [id number] 12/18/2024 10:00 AM CDT Appointment [facility] [address] [place] [address] Praveen Atkinson MD [address] [place] [address] documented as of this encounter Procedures Procedure Name Priority Date/Time Associated Diagnosis Comments DERMATOPATHOLOGY Routine 12/10/2022 3:33 AM CDT Neoplasm of uncertain behavior of skin Other specified erythematous conditions documented in this encounter Results * DERMATOPATHOLOGY (12/10/2022 3:33 AM CDT) Case Report Dermatopathology Report Case: [id number] Authorizing Provider: Fay Araujo MD Collected: 12/10/2022 03:33 AM Ordering Location: [facility] DermPath Lab Received: 12/11/2022 12:44 PM Pathologist: [...] The specimen is serially sectioned and a small business representative section is submitted in cassette 1. [...] characteristic determined by the Dermatopathology Laboratory at [facility], directed by Dr. Kyle Anthony. These tests need not be, and therefore are not, approved by the [place] Food and Drug Administration. The tests are used for clinical purposes. Billing Codes Specimen Charges Stain Charges [id number] 1 3 4:27 PM CDT DERMATOPATHOLOGY LABORATORY Embedded Images 3 4:27 PM CDT DERMATOPATHOLOGY LABORATORY Pathology/Cytolo gy TISSUE SPECIMEN FROM SKIN / Unknown 12/10/2022 3:33 AM CDT 12/11/2022 12:44 PM CDT us Fay Araujo MD LAB - PATHOLOGY/CYTOLOGY ORDERAB LES Final Result DERMATOPATHOLOGY LABORATORY [facility] - Department of Dermatology [facility] Specialized Medicine [address] [place] [address], [address] [phone] documented in this encounter Visit Diagnoses Diagnosis Neoplasm of uncertain behavior of skin Other specified erythematous conditions documented in this encounter Care Teams Visual Basic .Net Developer Relationship Specialty Start Date End Date Rozina Packer MD [facility] [place] [address] PCP - General Family Medicine 09/28/19 09/20/23 Flor Garcia MD [address] [place] [address] PCP - General Family Medicine 09/21/23 documented as of this encounter
--- OUTSIDE RECORDS SUMMARY | 2024-07-14 10:56 | XMS_ITS | Encounter Summary ---
Author Organization [facility] Healthcare Address [address] [place] [address] Care Team Providers Care Retaining Room Cutter Name Role Phone Rozina Packer MD Primary Care Provider [phone] Michael Rivera MD Unavailable [phone] Unruly Evans MD Unavailable [phone] Flor Garcia MD Primary Care Provider [phone] Encounter Details Date Type Department Care Team (Late st Contact Info) Description 08/15/2020 Telephone [facility] [address] [place] [address] Nery Scott, RT Social History Tobacco Use Types Packs/Day Years Used Date Smoking Tobacco: Never Smokeless Tobacco: Never Alcohol Use Standard Drinks/Week Comments Yes 0 (1 standard drink = 0.6 oz pur e alcohol) 3-4 drinks/month Comments No Sex and Gender Information Value Date Recorded Sex Assigned at Not on file Legal Sex Female 6:10 AM FORMATION TESTING OPERATOR Gender Identity Not on file Sexual Orientation Not on file Occupation Industry Job Start Date Job End Date TEACHER Not on file Not on file Not on file documented as of this encounter Plan of Treatment Not on file documented as of this encounter Visit Diagnoses Not on filedocumented in this encounter Care Teams Retaining Room Cutter Relationship Specialty Start Date End Date Rozina Packer MD [address] [place] [address] [place] [address] PCP - General 04/30/17 05/21/24 Flor Garcia MD [address] [place] [address] PCP - General Family Medicine 05/22/24 Michael Rivera MD [address] [place] [address] [place] [address] Surgeon Orthopedic Surgery 07/26/19 Unruly Evans MD [address] [place] [address] [place] [address] Relocation Coordinator Dermatology 07/26/19 documented as of this encounter
--- OUTSIDE RECORDS SUMMARY | 2024-07-14 10:56 | XMS_ITS | Data Portability ---
Author Organization [facility] [employer], Main Office Address [address] [place] [address] Assessment No assessment recorded. Plan of Treatment Reminders Order Date Submit Date Provider Last Modified By Organization Details Last Modified Time Details Appointments None recorded. Lab culture, urine + sensitivity 2023 024 [email or web address] 2 [facility], [address] [place], [address], 4 10:01:42 urinalysis, dipstick 2023 024 [facility] [address] , [address], [place], [address], 4 10:34:35 Referral gastroenter ologist referral 2022 023 [email or web address] 3 Steve Candelario MD, [address], [place], [address], 3 09:18:16 Procedures None recorded. Surgeries None recorded. Imaging MRI, lumbar spine, w/o contrast - *Please call pt to schedule* 2022 023 [email or web address] [address] [facility], [address], [address], [place], [address], 3 10:01:01 Medication Orders ondansetron 4 mg disintegrat ing tablet 2023 024 [facility] #89673, [address], [place], [phone], 4 14:11:29 ciprofloxac in 500 mg tablet 2023 024 [facility] #56932, [address] [place] [address], [id number], 4 14:09:18 phenazopyri dine 200 mg tablet 2023 024 [facility] #03529, [address] [place] [address], [id number], 4 14:00:04 ciprofloxac in 500 mg tablet 2023 024 [facility] #25900, [address] [facility] [address] [place] [address], [id number], 4 13:58:52 Medrol (Fan) 4 mg tablets in a dose pack 2022 023 [facility] #66658, [address] [place] [address], [id number], 4 13:59:36 cyclobenzap rine 10 mg tablet 2022 023 [facility] #27665, [address] [facility] [address] [place] [address], [id number], 4 13:59:01 Patient TargetsNo targets recorded. Patient Instructions Encounter Date Encounter Id Patient Instructions Last Modified By Organization Details Last Modified Time 08/18/2023 [id number] advised cutting back on Afrin , use her chlortrimeton otc, breathe in steam in shower [email or web address] Not available 08/18/2023 14:16:50 Reason for Referral [employer] Referral for Family history of cancer of [...] /MS is recom roberta d: order code 94789 (prateek ents >2yrs ). See Note 1 Note 1 For addit ional infor harrison ness e refer to http: //[facility] sara Bowenia gnost ics.c om/fa q/FAQ 199 (This link is being provi ded for infor hillary bradley/ josseline cazares purpo ses only. ) Not Available [facility] [address], [address], 06/04/2021 05:31:00 06/04/19 22 06/04/2021 COMPR EHENS KAVITHA METAB OLIC PANEL glucose 98 mg/dL 65-99 normal Fasti ng refer ence inter janeth Not Available [employer] [address], [address], 06/04/2021 05:30:59 06/04/19 22 06/04/2021 COMPR EHENS KAVITHA METAB OLIC PANEL urea nitrogen (BUN) 18 mg/dL 7-25 normal Not Available [facility] [address], [address], 06/04/2021 05:30:59 06/04/19 22 06/04/2021 COMPR EHENS KAVITHA METAB OLIC PANEL creatinine 0.70 mg/dL 0.60-0 .93 normal For patie nts >49 years of age, the refer ence limit for Creat inine is appro ximat shea 13% highe r for peopl e ident ified as Afric an-Am wilberto n. Not Available [address] [address] [place], [address], 06/04/2021 05:30:59 06/04/19 22 06/04/2021 COMPR EHENS KAVITHA METAB OLIC PANEL eGFR non-afr. estonian 88 mL/mi n/1.7 3m2 > or = 60 normal Not Available [address], [address], 06/04/2021 05:30:59 06/04/19 22 06/04/2021 COMPR EHENS KAVITHA METAB OLIC PANEL eGFR 102 mL/mi n/1.7 3m2 > or = 60 normal Not Available [address], [address], 06/04/2021 05:30:59 06/04/19 22 06/04/2021 COMPR EHENS KAVITHA METAB OLIC PANEL BUN/creatini ne ratio not applic able (calc ) 6-22 Not Available [address], [address], 06/04/2021 05:30:59 06/04/19 22 06/04/2021 COMPR EHENS KAVITHA METAB OLIC PANEL sodium 142 mmol/ L 135-14 6 normal Not Available [address], [address], 06/04/2021 05:30:59 06/04/19 22 06/04/2021 COMPR EHENS KAVITHA METAB OLIC PANEL potassium 4.6 mmol/ L 3.5-5. 3 normal Not Available [address], [address], 06/04/2021 05:30:59 06/04/19 22 06/04/2021 COMPR EHENS KAVITHA METAB OLIC PANEL chloride 105 mmol/ L 98-110 normal Not Available [address], [address], 06/04/2021 05:30:59 06/04/19 22 06/04/2021 COMPR EHENS KAVITHA METAB OLIC PANEL carbon dioxide 30 mmol/ L 20-32 normal Not Available [address], [address], 06/04/2021 05:30:59 06/04/19 22 06/04/2021 COMPR EHENS KAVITHA METAB OLIC PANEL calcium 9.4 mg/dL 8.6-10 .4 normal Not Available [address], [address], 06/04/2021 05:30:59 06/04/19 22 06/04/2021 COMPR EHENS KAVITHA METAB OLIC PANEL protein, total 6.3 g/dL 6.1-8. 1 normal Not Available [address], [address], 06/04/2021 05:30:59 06/04/19 22 06/04/2021 COMPR EHENS KAVITHA METAB OLIC PANEL albumin 4.3 g/dL 3.6-5. 1 normal Not Available [address], [address], 06/04/2021 05:30:59 06/04/19 22 06/04/2021 COMPR EHENS KAVITHA METAB OLIC PANEL globulin 2.0 g/dL_ (calc ) 1.9-3. 7 normal Not Available [address], [address], 06/04/2021 05:30:59 06/04/19 22 06/04/2021 COMPR EHENS KAVITHA METAB OLIC PANEL albumin/glob ulin ratio 2.2 (calc ) 1.0-2. 5 normal Not Available [facility] [address] [address], [place], [address], 06/04/2021 05:30:59 06/04/19 22 06/04/2021 COMPR EHENS KAVITHA METAB OLIC PANEL bilirubin, total 0.4 mg/dL 0.2-1. 2 normal Not Available [address], [address], 06/04/2021 05:30:59 06/04/19 22 06/04/2021 COMPR EHENS KAVITHA METAB OLIC PANEL alkaline phosphatase 65 U/L 37-153 normal Not Available [address], [address], 06/04/2021 05:30:59 06/04/19 22 06/04/2021 COMPR EHENS KAVITHA METAB OLIC PANEL AST 20 U/L 10-35 normal Not Available [address], [address], 06/04/2021 05:30:59 06/04/19 22 06/04/2021 COMPR EHENS KAVITHA METAB OLIC PANEL ALT 16 U/L 6-29 normal Not Available [address], [address], 06/04/2021 05:30:59 06/04/19 22 06/04/2021 LIPID PANEL , STAND REJI cholesterol, total 216 mg/dL <200 high Not Available [address], [address], 06/04/2021 05:30:59 06/04/19 22 06/04/2021 LIPID PANEL , STAND REJI HDL cholesterol 86 mg/dL > or = 50 normal Not Available [address], [address], 06/04/2021 05:30:59 06/04/19 22 06/04/2021 LIPID PANEL , STAND REJI triglyceride s 114 mg/dL <150 normal Not Available [facility] [address] [place], [address], 06/04/2021 05:30:59 06/04/19 22 06/04/2021 LIPID PANEL [...] 310(1 9): 2061- 2068 (http ://ed ucati on.Watchsend noraPittarello. com/f aq/FA Q164) Not Available [facility] [address] [address], [place], [address], 06/04/2021 05:30:59 06/04/19 22 06/04/2021 LIPID PANEL , STAND REJI chol/HDLC ratio 2.5 (calc ) <5.0 normal Not Available [facility] [address] [address], [place], [address], 06/04/2021 05:30:59 06/04/19 22 06/04/2021 LIPID PANEL , STAND REJI non HDL cholesterol 130 mg/dL _(mohsen c) <130 high For patie nts with diabe fredi plus 1 major ASCVD risk facto r, treat ing to a non-H DL-C goal of <100 mg/dL (LDL- C of <70 mg/dL ) is consi dered a thera peuti c optio n. Not Available [facility] [address] [place], [address], 06/04/2021 05:30:59 04/03/19 23 04/03/2022 COMPR EHENS KAVITHA METAB OLIC PANEL sodium 139 mmol/ L 137-14 5 Not Available [facility] (Lab) [address] [place], [address], 04/03/2022 20:33:53 04/03/19 23 04/03/2022 COMPR EHENS KAVITHA METAB OLIC PANEL potassium 4.3 mmol/ L 3.5-5. 1 Not Available [facility] (Lab) [address] [place], [address], 04/03/2022 20:33:53 04/03/19 23 04/03/2022 COMPR EHENS KAVITHA METAB OLIC PANEL chloride 103 mmol/ L 98-107 Not Available [facility] (Lab) [address] [place], [address], 04/03/2022 20:33:53 04/03/19 23 04/03/2022 COMPR EHENS KAVITHA METAB OLIC PANEL carbon dioxide 28 mmol/ L 22-30 Not Available [facility] (Lab) [address] [place], [address], 04/03/2022 20:33:53 04/03/19 23 04/03/2022 COMPR EHENS KAVITHA METAB OLIC PANEL anion gap 12.3 mmol/ L 14-22 low Not Available [facility] (Lab) [address] [place], [address], 04/03/2022 20:33:53 04/03/19 23 04/03/2022 COMPR EHENS KAVITHA METAB OLIC PANEL glucose 100 mg/dL 70-99 high Not Available [facility] (Lab) [address] [place], [address], 04/03/2022 20:33:53 04/03/19 23 04/03/2022 COMPR EHENS KAVITHA METAB OLIC PANEL BUN 13 mg/dL 8-19 Not Available [facility] (Lab) [address] [place], [address], 04/03/2022 20:33:53 04/03/19 23 04/03/2022 COMPR EHENS KAVITHA METAB OLIC PANEL creatinine 0.75 mg/dL 0.66-1 .25 Not Available [facility] (Lab) [address] [place], [address], 04/03/2022 20:33:53 04/03/19 23 04/03/2022 COMPR EHENS KAVITHA METAB OLIC PANEL GFR >60 Refer ence Range : [place] ge GFR Healt hy Adult : >60 [...] or ethni c subgr oups, such as [facility] nics. Outsi de the valid ated [...] s/kdo qi/gf r_cal culat or Not Available [facility] (Lab) [address] [place], [address], 04/03/2022 20:33:53 04/03/19 23 04/03/2022 COMPR EHENS KAVITHA METAB OLIC PANEL alkaline phosphatase 75 U/L 38-126 Not Available [facility] (Lab) [address] [place], [address], 04/03/2022 20:33:53 04/03/19 23 04/03/2022 COMPR EHENS KAVITHA METAB OLIC PANEL alanine aminotransfe rase 27 U/L 0-35 Not Available [facility] (Lab) [address] [place], [address], 04/03/2022 20:33:53 04/03/19 23 04/03/2022 COMPR EHENS KAVITHA METAB OLIC PANEL aspartate aminotransfe rase 33 U/L 15-37 Not Available [facility] (Lab) [address] [place], [address], 04/03/2022 20:33:53 04/03/19 23 04/03/2022 COMPR EHENS KAVITHA METAB OLIC PANEL bilirubin, total 0.70 mg/dL 0.20-1 .30 Not Available [facility] (Lab) [address] [place], [address], 04/03/2022 20:33:53 04/03/19 23 04/03/2022 COMPR EHENS KAVITHA METAB OLIC PANEL calcium 9.4 mg/dL 8.4-10 .2 Not Available [facility] (Lab) [address] [place], [address], 04/03/2022 20:33:53 04/03/19 23 04/03/2022 COMPR EHENS KAVITHA METAB OLIC PANEL total protein 6.9 g/dL 6.3-8. 2 Not Available [facility] (Lab) [address] [place], [address], 04/03/2022 20:33:53 04/03/19 23 04/03/2022 COMPR EHENS KAVITHA METAB OLIC PANEL albumin 4.3 g/dL 3.0-4. 4 Not Available [facility] (Lab) [address] [place], [address], 04/03/2022 20:33:53 04/03/19 23 04/03/2022 COMPR EHENS KAVITHA METAB OLIC PANEL globulin 2.6 g/dL 2.6-4. 2 Not Available [facility] (Lab) [address] [place], [address], 04/03/2022 20:33:53 04/03/19 23 04/03/2022 COMPR EHENS KAVITHA METAB OLIC PANEL A/G ratio 1.7 ratio 1.0-2. 0 Not Available [facility] (Lab) [address] [place], [address], 04/03/2022 20:33:53 04/03/19 23 04/03/2022 LIPID PANEL cholesterol 263 mg/dL 140-19 9 high NIH KANDICE NSUS RECOM MENDA TION FOR CECILIA STERO L: ADULT CHILD LOW RISK: <200 <170 BORDE RLINE : <200- 239 ----- HIGH RISK: >240 >200 Not Available [facility] (Lab) [address] [place], [address], 04/03/2022 20:33:32 04/03/19 23 04/03/2022 LIPID PANEL triglyceride s 158 mg/dL 0-150 high NIH KANDICE NSUS REPOR T RECOM MENDA TION FOR TRIGL YCERI MIL: ADULT CHILD LOW RISK: <150 ----- BODER LINE: 150-1 99 ----- HIGH RISK: >200 ----- Not Available [facility] (Lab) [address] [place], [address], 04/03/2022 20:33:32 04/03/19 23 04/03/2022 LIPID PANEL HDL cholesterol 92 mg/dL 40- Not Available [facility] (Lab) [address] [place], [address], 04/03/2022 20:33:32 04/03/19 23 04/03/2022 LIPID PANEL [...] WILL NOT BE REPOR JUDSON. Not Available [facility] (Lab) [address] [place], [address], 04/03/2022 20:33:32 05/20/19 24 05/20/2023 urina lysis , dipst ick Leukocytes (reference range: negative ethan/ l) Negati ve Not Available [address], [place], [address], 05/20/2023 10:27:55 05/20/19 24 05/20/2023 urina lysis , dipst ick Nitrite (reference rage: negative mg/dl) negati ve Not Available [address], [place], [address], 05/20/2023 10:27:55 05/20/19 24 05/20/2023 urina lysis , dipst ick Urobilinogen (reference range: 0.2-1 mg/dl) 0.2 Not Available [address], [place], [address], 05/20/2023 10:27:55 05/20/19 24 05/20/2023 urina lysis , dipst ick Protein (reference range: negative mg/dl) Negati ve Not Available [address], [place], [address], 05/20/2023 10:27:55 05/20/19 24 05/20/2023 urina lysis , dipst ick pH (reference range: 5-7) 5.5 Not Available [address], [place], [address], 05/20/2023 10:27:55 05/20/19 24 05/20/2023 urina lysis , dipst ick Blood (reference range: negative Prince/ l) Non-He molyze d: Trace Not Available [address], [place], [address], 05/20/2023 10:27:55 05/20/19 24 05/20/2023 urina lysis , dipst ick Specific Prole (reference range: 1.005-1.030) 1.010 Not Available [address], [place], [address], 05/20/2023 10:27:55 05/20/19 24 05/20/2023 urina lysis , dipst ick Ketone (reference range: negative mg/dl) Negati ve Not Available [address], [place], [address], 05/20/2023 10:27:55 05/20/19 24 05/20/2023 urina lysis , dipst ick Bilirubin (reference range: negative mg/dl) Negati ve Not Available [address], [place], [address], 05/20/2023 10:27:55 05/20/19 24 05/20/2023 urina lysis , dipst ick Glucose (reference range: negative mg/dl) Negati ve Not Available [address], [place], [address], 05/20/2023 10:27:55 05/20/19 24 05/20/2023 urina lysis , dipst ick Appearance Slight ly Cloudy Not Available [address], [place], [address], 05/20/2023 10:27:55 05/20/19 24 05/20/2023 urina lysis , dipst ick Color Yellow Not Available [address], [place], [address], 05/20/2023 10:27:55 04/11/19 22 04/11/2021 imagi ng/rai pace tic resul t No observ ation record ed. [id number], [place], [address], 05/27/2022 15:41:43 04/03/19 23 04/03/2022 bone densi ty No observ ation record ed. [id number] [facility] [address] [place], [address], 05/27/2022 15:41:43 04/03/19 23 04/03/2022 bone densi ty No observ ation record ed. [id number] [facility] [address] [place], [address], 05/27/2022 15:41:43 04/03/19 DEXA, axial skele ton [facility] [address] [place] [address] Patien t Name: RUBEN ARIAS Access ion #: [id number] Sex: F : 1950 0 Locati [...] e of -1.1. Page 1 of 2 [facility] Name: RUBEN ARIAS Access ion #: [id number] Sex: F : 1950 0 Exam [...] MD (CT) (CT) Page 2 of 2 [id number] [facility] (Imaging) [address], [place], [address], 05/27/2022 15:41:43 05/25/19 24 05/25/2023 MAMMO , scree mio, digit al, bilat eral No observ ation record ed. [email or web address] [facility] [address], [place], [address], 05/26/2023 11:48:33 Result Notes None recorded. Problems Name Problem SNOMED Code Status Onset Date Resolution Date Notes Provider Name and Address Organization Details Recorded Time Mammography abnormal 567015032 Active 2021 Not Available [facility] 3 15:40:51 Fluid level behind tympanic membrane Active Not Available [facility] 3 15:40:51 Depressive disorder 13957609 Active Not Available [facility] 3 15:40:51 Seasonal allergy 479416717 Active Not Available [facility] 3 15:40:52 Foot pain 72369829 Active Not Available [facility] 3 15:40:52 Anxiety 57189951 Active Not Available [facility] 3 15:40:52 Hemorrhoids 05037668 Active Not Available [facility] 3 15:40:52 Posterior rhinorrhea 83014541 Active Not Available [facility] 3 15:40:52 Acute sinusitis 13867104 Active 2022 Rozina Packre MD [address], [place] [address], [place], [address] , [employer] [facility] [employer] 3 10:31:28 Spinal stenosis of lumbar region 89600362 Active 2022 Rozina Packer MD [address], [place], [address] , [employer] [facility] [employer] 3 16:58:47 Lesion of face 001318504 Active 2022 Rozina Packer MD [address], [place], [address] , [facility] [employer] [facility] [employer] [facility] 3 17:01:52 Increased frequency of urination 485756632 Active 2023 EMILI Meadows [address], [place], [address] , [facility] [employer] [facility] [employer] 4 10:27:12 Nausea 688658375 Active 2023 EMILI Meadows [address], [place], [address] , [employer] 4 14:10:34 Problem Notes None recorded. Procedures Surgical History Date Name Laterality Status Provider Name and Address Organization Details Recorded Time screening mammography completed Rowena Patino RN [facility] [employer] [facility] 05/26/2023 11:48:09 Imaging Results Imaging Date Name Status LastModified by [facility] Details LastModified Time 04/03/2022 bone density completed [id number] 30 026 [facility] Orders [address] [place], [address], 05/27/2022 15:41:43 04/03/2022 bone density completed [id number] 30 026 [facility] Orders [address] [place], [address], 05/27/2022 15:41:43 04/03/2022 DEXA, axial skeleton completed [id number] [facility] (Imaging) [address] [place], [address], 05/27/2022 15:41:43 04/11/2021 imaging/diagno stic result completed [id number] [address], [place], [address], 05/27/2022 15:41:43 05/25/2023 MAMMO, screening, digital, bilateral [email or web address] [address], [place], [address], 05/26/2023 11:48:33 Procedure Notes None recorded. Medical [...] Available Not Available Not Available [facility] High-Dose 4733-4219 (PF) 180 mcg/0.5 mL intramusc ular syringe [...] and Address Organization Details Last Updated DateTime 2 26.8 kg/m2 162.56 cm 98 % 98 % 59 /min 96.2 [degF] 44510.4 1 g 108 mm[Hg] 80 mm[Hg] Not Available [employer] 3 15:40:35 Date Recorded Body weight Body mass index (BMI) Body height Body temperature Heart rate Oxygen saturation Oxygen saturation in Arterial blood by Pulse oximetry Systolic blood pressure Diastolic blood pressure Provider Name and Address Organization Details Last Updated DateTime 3 18154.8 2 g 26.6 kg/m2 162.56 cm 98.1 [degF] 64 /min 98 % 98 % 124 mm[Hg] 72 mm[Hg] Valerie Esquivel MA [facility] [employer] 3 16:47:12 Date Recorded Body height Body mass index (BMI) Body weight Body temperature Heart rate Oxygen saturation Oxygen saturation in Arterial blood by Pulse oximetry Respiratory rate Systolic blood pressure Diastolic blood pressure Provider Name and Address Organization Details Last Updated DateTime 4 162.56 cm 26.6 kg/m2 06588.8 2 g 98.3 [degF] 63 /min 97 % 97 % 16 /min 102 mm[Hg] 70 mm[Hg] Ivania Yousif RN [facility] [employer] [facility] 4 14:03:00 Social History None recorded. Functional Status None recorded. Mental Status None recorded. Family History Relationship Description Onset Age of this Age Resolved Age Notes LastModified by Organization Details LastModified Time Father Family history of malignant neoplasm [id number] Not available 05/27/2022 15:40:13 Medical History No medical history recorded. Gynecological HistoryNo gynecological history recorded. Obstetrics History GPAL:G 0 P 0 0 0 0 Immunizations Vaccine Type Date Status Note Provider Nam e and Address Organization Details Recorded Time Influenza, split virus, trivalent, preservative 5 completed Not Available [employer] 05/27/2022 15:41:40 zoster live 2 completed Not Available [facility] 05/27/2022 15:41:40 Pneumococcal conjugate PCV 13 0 completed Not Available [facility] 05/27/2022 15:41:40 Pneumococcal conjugate PCV 13 8 completed Not Available [facility] 05/27/2022 15:41:40 Influenza, high-dose, trivalent, PF 6 completed Not Available [facility] 05/27/2022 15:41:40 Tdap 9 completed Not Available [facility] 05/27/2022 15:41:41 Past Encounters Encounter ID Performer Location Encounter Start Date Encounter Closed Date Diagnosis/Indication Diagnosis SNOMED-CT Code Diagnosis ICD10 Code Diagnosis Note [id number] [facility] [place] [address] [address] [place] [address] 11/15/2020 00:00:00 11/15/2020 16:03:18 [id number] [facility] [place] [address] [place] [address] [place] [address] 04/02/2021 00:00:00 04/02/2021 22:03:51 [id number] [facility] [place] [address] [facility] [place] [address] 03/16/2022 00:00:00 03/16/2022 13:38:12 [id number] Rozina Packer MD [facility] [place] [address] [place] [address] [place] [address] 10/29/2022 16:34:25 10/29/2022 17:19:01 Spinal stenosis of lumbar region 90592032 M48.062 Went to PT no help Lesion of face 392019137 L98.9 See dermatolog ist for skin lesionUse heat and PRID to area it looks cystic Screening for malignant neoplasm of colon 280318812 Z12.11 Family his tory of cancer of colon 991379008 Z80.0 [id number] EMILI Meadows [facility] [place] [address] [facility] [place] [address] 05/20/2023 10:09:27 06/02/2023 09:25:50 Increased frequency of urination 018436301 R35.0 [id number] EMILI Meadows [facility] [place] [address] [facility] y [place] [address] 08/18/2023 13:53:03 08/18/2023 14:15:31 Increased frequency of urination 338755128 R35.0 Nausea 752301672 R11.0 Anxiety 38919343 F41.9 Depressive disorder 3548 9007 F32.A Seasonal allergy 8306143 04 J30.2 Spinal varinder nosis of lumbar region 48803621 M48.062 Health Concerns Section Related Observation LastModified by Organization Detai ls LastModified Time None Recorded Concern Status LastModified by Organization Details LastModified Time None Recorded Advance Directives Directive None Recorded Payers Encounter Date Sequence Insurance Name Policy Number Policy Guidry Covered Member ID Guidry Member ID Guarantor Name 10/29/2022 1 [employer] (MEDICARE REPLACEMENT PPO) [id number] Ruben L Polivick [id number] Ruben Polivick 05/20/2023 1 [employer] (MEDICARE REPLACEMENT PPO) [id number] Ruben L Polivick [id number] Ruben Polivick 08/18/2023 1 [employer] (MEDICARE REPLACEMENT PPO) [id number] 1 Ruben L Polivick [id number] Ruben Polivick Notes Date Note Type Note [...] had MRI. Rozina Packer MD [address] [facility] [place], [address], [employer] [facility] 10/29/2022 20:32:49 08/18/2023 text/html 2 nasal surgeries EMILI Mendoza [address] [facility] [address], [place], [address], [employer] [facility] [employer] [facility] 09/07/2023 10:39:57 OBGyn Episode No OBEpisode recorded.
--- OUTSIDE RECORDS SUMMARY | 2024-07-14 10:56 | XMS_ITS | Continuity of Care Document ---
Author Organization [facility] Address [address] [facility] [facility] [address] [place] [address] Phone Care Team Providers Care Factory Manager Name Role Phone Doser Ramakrishna VARMA DPM [...] exam foot, minimum 3 views 2022 Office/outpatient visit,[facility] 2022 Advance Directives Directive Yes / No Effective Date File Name No Information Encounters Encounter Description Practice Location Reason(s) For Visit Diagnoses Date Provider Providers Copied on Encounter Office/outpat ient visit,est, mod [facility], [address] [address], [place], [place], [id number], [place] tel:[phone] [facility] Post Surgerypain (chief complaint)Jean-Pierre t pain (chief complaint) Pain in right footMetatars algia, right foot 5 Doser AVANI Durbin. [address], [id number] , [place]. tel:[phone] Referring Provider: Ramakrishna Arnold, [address] [place] [address], [place], [address] . tel:[phone] [facility], [address], [id number], [place] tel:[phone] [facility] Follow Up of right foot (chief complaint) Pain in right footHallux rigidus, right foot 4 Doser AVANI Durbin. [address] [address], [place], [place], [id number] , [place]. tel:[phone] Referring Provider: Ramakrishna Arnold, [address] [address], [place], [address] . tel:[phone] [facility], [address] [place] [address], [id number], [place] tel:[phone] [facility] No Information 4 Doser DPJohnie Durbin. [address] [facility] [address], [place], [place], [id number] , . tel:[phone] Referring Provider: Ramakrishna Arnold, [address] [facility] [address] [facility], [place], [address] . tel:[phone] [facility], [address], [id number], tel:[phone] [facility] Pain in right foot 4 Doser DPJohnie Durbin. [address] [address], [place], [place], [id number] , . tel:[phone] Office/outpat ient visit,[facility], [address], [id number], tel:[phone] [facility] Unsuccessful toe joint surgery (chief complaint) Pain in right footHallux rigidus, right foot 3 Doser DPJohnie Durbin. [address] [place] [address], [address] [address], [place], [place], [id number] , . tel:[phone] Family History Family Member Type Diagnosis Age At Onset Mother Problem (finding) Osteoporosis Father Problem (finding) Alcoholism Father Problem (finding) Heart Disease Father Problem (finding) Cancer, unknown Father Problem (finding) Diabetes Payers Payer name Insurance type Covered alliance party ID Steve polanco(s) Aetna Medicare [id number] Social History Type Description Quantity Date Captured [...]
--- OUTSIDE RECORDS SUMMARY | 2024-07-14 10:57 | XMS_ITS | Clinical Summary ---
Author Organization [facility] Address [address] [place] [address] Care Team Providers Care Residential Green Building Designer Name Role Phone Michael Rivera MD Unavailable [phone] Unruly Evans MD Unavailable [phone] Flor Garcia MD Primary Care Provider [phone] Allergies No known active allergies Medications estradioL [...] (06/29/2019): Added automatically from request for surgery [id number] Surgical History Surgery Date Site/Laterality Comments CRANIOTOMY [...] on file Legal Sex Female 6:10 AM FIELD CARE MANAGER Gender Identity Not on file Sexual [...] Read Routine (OP Routine) 05/25/2023 1:28 PM FIELD CARE MANAGER Screening mammogram, encounter for from Last 3 Months or Most Recently Relevant to Health Maintenance Results * Screening Mammogram Bilateral W Miguelangel (05/25/2023 1:28 PM FIELD CARE MANAGER) Anatomical Region Laterality Modality Breast Bilateral Mammography Narrative 05/25/2023 3:48 PM FIELD CARE MANAGER Examination: Screening Mammogram Bilateral W Miguelangel: [...] Advance Directives For more information, please contact: [phone] * Full Code (Latest Code Status on File) Date Activated Date Inactivated Comments 08/23/2020 9:09 AM 08/23/2020 1:55 PM Care Teams Residential Green Building Designer Relationship Specialty Start Date End Date Flor Garcia MD [address] [place] [address] PCP - General Family Medicine 05/22/24 Michael Rivera MD Surgeon Orthopedic Surgery 07/26/19 Unruly Evans MD [facility] 07/26/19
--- OUTSIDE RECORDS SUMMARY | 2024-07-14 10:57 | XMS_ITS ---
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 Past Treatment and Therapy Plans No past plan information found. Radiation Treatments * Course [id number] 05/31/2023 - 06/09/2023 Treatment Period Energy Fraction Dose Fractions Total Dose Plans Planned #[email or web address] 05/31/2023 - 06/09/2023 5 / 5 3,000 cGy Reference Points Delivered PTVbed 05/31/2023 - 06/09/2023 3,000 cGy
--- OUTSIDE RECORDS SUMMARY | 2024-07-14 10:57 | XMS_ITS | Clinical Summary ---
Author Organization [facility] Address [address] [facility] [place] [address] Care Team Providers Care Instrument Shop Supervisor Name Role Phone Flor Garcia MD Primary Care Provider [phone] Source Comments [facility],non-owned Affiliates and Associated Physician Practices is amultiple site organization consisting of ambulatory clinics and hospital sitesin [place], [place], [place] and [place]. This disclosure is being madepursuant to the Care Everywhere program and may not contain all information available regarding this patient. 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 Encounters Date Type Department Care Team Description 03/28/2024 12:58 PM INFORMATION SYSTEMS ARCHITECT - 04/29/2024 11:59 PM INFORMATION SYSTEMS ARCHITECT Hospital Encounter [facility] - Radiation Oncology [address] [place] [address] Praveen Atkinson MD Discharge Disposition: Home or [...] PM CDT Legal Sex Female 6:17 AM INFORMATION SYSTEMS ARCHITECT Gender Identity Female 01/15/2022 12:08 PM CDT Sexual Orientation Not on file Last Filed Vital Signs Vital Sign Reading Time Taken Comments Blood Pressure 134/68 03/28/2024 1:03 PM INFORMATION SYSTEMS ARCHITECT Pulse 67 03/28/2024 1:03 PM INFORMATION SYSTEMS ARCHITECT Temperature 36.7 C (98 F) 03/28/2024 1:03 PM INFORMATION SYSTEMS ARCHITECT Respiratory Rate 18 03/28/2024 1:03 PM INFORMATION SYSTEMS ARCHITECT Oxygen Saturation 100% 03/28/2024 1:03 PM INFORMATION SYSTEMS ARCHITECT Inhaled Oxygen Concentration - - Weight 75.8 kg (167 lb) 03/28/2024 12:01 PM INFORMATION SYSTEMS ARCHITECT Height 162.6 cm (5' 4 ) 03/28/2024 12:01 PM INFORMATION SYSTEMS ARCHITECT Body Mass Index 28.67 03/28/2024 12:01 PM INFORMATION SYSTEMS ARCHITECT Plan of Treatment Upcoming Encounters Date Type Department Care Team (Late st Contact Info) Description 12/18/2024 8:30 AM CDT Appointment [facility] [address] [place] [address] [phone] [place] [address] [place] [address] 12/18/2024 10:00 AM CDT Appointment [facility] [address] [place], [place] [address] Praveen Atkinson MD [address] [place] [address] Health Maintenance Due Date Last [...] complete this topic Insurance AETNA MEDICARE ADV [facility]GED MEDICARE ADV [facility] MANAGED MEDICARE ADV MANAGED MEDICARE ADV [address] MANAGED MEDICARE ADV [address] MANAGED MEDICARE ADV AETNA AETNA UHC MANAGED MEDICARE ADV AETNA [facility] MANAGED MEDICARE ADV AETNA [facility] MANAGED MEDICARE ADV Member Subscriber Plan / Payer (Ef fective 2016-Present) Name:Shameka Kelsey Relation to Subscriber:Self Name:SHAMEKA KELSEY Payer ID:[id number] ([facility]) Type:Medicare-Managed Care Address: [address] [id number] AETNA [facility] MANAGED MEDICARE ADV AETNA [facility] MANAGED MEDICARE ADV AETNA [facility] MANAGED MEDICARE ADV AETNA [facility] MANAGED MEDICARE ADV AETNA [facility] [place] [address] Care Teams Instrument Shop Supervisor Relationship Specialty Start Date End Date Flor Garcia MD [address] [id number] PCP - General Family Medicine 09/21/23
--- OUTSIDE RECORDS SUMMARY | 2024-07-14 10:57 | XMS_ITS | Continuity of Care Document ---
Author Organization [facility] Address [address] [place] [address] [place] [address] Phone Care Team Providers Care Reimbursement Counselor Name Role Phone Deras OD, Steve Unavailable Unavailable Procedures Procedure Date Office/outpatient Visit, [facility] Office/outpatient Visit, New Advance Directives Directive Yes / No Effective Date File Name No Information Encounters Encounter Description Practice Location Reason(s) For Visit Diagnoses Date Provider Providers Copied on Encounter Office/outpat ient Visit, [facility], [address] [place] [address] [address], [place], [place], [id number], [place] tel:[phone] [facility] No Information 7-200 9 Deras OD Steve. [address] [facility] , [address], [place], [address], [place]. tel:[phone] Office/outpat ient Visit, [facility], [address] [place] [address] [address], [place], [place], [id number], [place] tel:[phone] SEC [facility] No Information 8-200 7 Deras OD Steve. [address] [facility] , [address], [place], [address], [place]. tel:[phone] Family History Family Member Type Diagnosis Age At Onset No Information Payers Payer name Insurance type Covered libertarian ID Authoriza tion(s) No Information Social History [...]
--- OUTSIDE RECORDS SUMMARY | 2024-07-14 10:57 | XMS_ITS | Referral Summary ---
Author Organization [facility] Address [address] [place] [address] Care Team Providers Care Shake Table Operator Name Role Phone Michael Rivera MD Unavailable [phone] Unruly Evans MD Unavailable [phone] Flor Garcia MD Primary Care Provider [phone] Allergies No known active allergies Medications estradioL [...] (06/29/2019): Added automatically from request for surgery [id number] Social History Tobacco Use Types Packs/Day Years Used Date Smoking Tobacco: Never Smokeless Tobacco: Never Alcohol Use Standard Drinks/Week Comments Yes 0 (1 standard drink = 0.6 oz pur e alcohol) 3-4 drinks/month Comments No Sex and Gender Information Value Date Recorded Sex Assigned at Not on file Legal Sex Female 6:10 AM BUILDING SERVICES SUPERVISOR Gender Identity Not on file Sexual Orientation [...] Read Routine (OP Routine) 05/25/2023 1:28 PM BUILDING SERVICES SUPERVISOR Screening mammogram, encounter for from Last 3 Months or Most Recently Relevant to Health Maintenance Results * Screening Mammogram Bilateral W Miguelangel (05/25/2023 1:28 PM BUILDING SERVICES SUPERVISOR) Anatomical Region Laterality Modality Breast Bilateral Mammography Narrative 05/25/2023 3:48 PM BUILDING SERVICES SUPERVISOR Examination: Screening Mammogram Bilateral W Miguelangel: 05/25/23 [...] Health Maintenance Insurance UHC MEDICARE ADVANTAGE [facility] Address: [address] [address] [place] [address] AETNA MEDICARE AETNA MEDICARE Advance Directives For more information, please contact: [phone] * Full Code (Latest Code Status on File) Date Activated Date Inactivated Comments 08/23/2020 9:09 AM 08/23/2020 1:55 PM Care Teams Shake Table Operator Relationship Specialty Start Date End Date Flor Garcia MD [address] [place] [address] PCP - General Family Medicine 05/22/24 Michael Rivera MD Surgeon Orthopedic Surgery 07/26/19 Unruly Evans MD Shopping Centre Manager Dermatology 07/26/19
--- OUTSIDE RECORDS SUMMARY | 2024-07-14 10:57 | XMS_ITS | Patient Health Record ---
Author Organization [facility] Address [address] [facility] [address] [place] [address] Support Name Relationship Address Phone Shameka Kelsey Guarantor Unknown [phone] Allergies No Known Allergies Reason For Referral No Information Problems Problem Type SNOMED Code ICD Code Onset Dates Problem Status W/U Status Risk Notes Problem Actinic keratosis (928221) Actinic keratosis (L57.0) Active confirmed Problem Seborrheic keratosis (19526813) Other seborrheic keratosis (L82.1) Active confirmed Problem History of malignant melanoma of the skin (730553023694) Personal history of malignant melanoma of skin (Z85.820) Active confirmed Plan Of Treatment No Information Insurance Providers Payer Name Payer Address Payer Phone Subscriber Number Group Number Insured Name Patient Relationship to Insured Coverage Start Date Coverage End Date DO NOT USE - [employer] [address] [address] [place], [place] [id number] Shameka Kelsey Self - patient is the insured 7
--- OUTSIDE RECORDS SUMMARY | 2024-07-14 10:57 | XMS_ITS ---
Author Organization [facility] Address [address] [facility] [address] [place] [address] Care Team Providers Care Volleyball Coach Name Role Phone zzzzMigration, zzzzProvider Unavailable Unav ailable REASON FOR VISIT EMR-Kraig Encounters Encounter Location Date Provider Diagnosis [facility] [address] [facility] [address] [place] [address] 01/16/2023 zzzzProvider zzzzMigration Plan Of Treatment No Information Progress Notes * Shameka DANIELSON LDOB: [birth year] (73 yo F)Acc No.[id number]:01/16/2023 Patient: Shameka TAN :1950 A ge:72 Y S ex:Female Address:[facility] [place], [address] Subjective: * Chief Complaints: * E MR-Kraig * Medical History: * Surgical History: * Hospitalization/Major Diagno stic Procedure: * Medications: Objective: * Vitals: * Physical Examination: Assessment: Plan: * Treatment: * Procedure Codes: * true * Date: Generated for Karlai roberto/[employer]/eTransmitting on: 0 07/14/2024 10:56 AM CDT
--- OUTSIDE RECORDS SUMMARY | 2024-07-14 10:57 | XMS_ITS ---
Author Organization [facility] Address [address] [place] [address] Care Team Providers Care Fha Underwriter Name Role Phone zzzzMigration, zzzzProvider Unavailable Unav ailable Allergies No Known Allergies REASON FOR VISIT EMR-Kraig Encounters Encounter Location Date Provider Diagnosis [facility] [address] [place] [address] 01/17/2023 zzzzProvider zzzzMigration Plan Of Treatment No Information Progress Notes * Shameka KELSEY LDOB: [birth year] (73 yo F)Acc No.[id number]:01/17/2023 Patient: Shameka TAN :1950 A ge:72 Y S ex:Female Address:[facility] [address], [place], [address] Subjective: * Chief Complaints: * E MR-Kraig [...]
[2024-07-14 11:39] LABS: Cholesterol 208 mg/dL (0-200); HDL Direct 85 mg/dL; Triglycerides 127 mg/dL (<150)
[2024-07-14 11:50] LABS: LDL Cholesterol Direct 83 mg/dL
== END 2024-07-14 10:52 | disposition home or self-care (01) ==
PROVIDERS: PCP Family Medicine; Visit Provider Student in an Organized Health Care Education/Training Program
DX: E78.5 Hyperlipidemia, unspecified (principal)
CPT/HCPCS: 36415; 80061

== ENCOUNTER 2025-01-12 11:46 | Outpatient (CLI) | payer MEDICARE, SELFPAY ==
[2025-01-12 12:14] LABS: Hematocrit 41.5 % (37.0-47.0); Hemoglobin 13.4 g/dL (12.0-15.0); Immature Granulocyte Percent A 0.4 % (0-0.5); Lymphocytes Absolute Auto 1.73 K/mm3 (0.9-3.2); Mean Corpuscular HGB Conc 32.3 g/dl (32-36); Mean Corpuscular Hemoglobin 29.9 pg (26-34); Mean Corpuscular Volume 92.6 fl (80-100); Nucleated Red Blood Cells Absolute Auto 0.000 K/mm3 (0.0-0.012); Nucleated Red Blood Cells Perc 0.0 % (0.0-0.2); Platelet Count Result 310 k/mm3 (150-375); Red Blood Count 4.48 M/mm3 (4.2-5.4); White Blood Count 5.6 K/mm3 (4.5-10.0)
[2025-01-12 12:30] LABS: Alanine Aminotransferase 19 U/L (6-35); Albumin Level 4.0 g/dL (3.5-5.1); Alkaline Phosphatase 64 U/L (38-126); Anion Gap 5 mmol/L (4-12); Aspartate Amino Transferase 29 U/L (14-36); Bilirubin,Total 0.3 mg/dL (0.2-1.3); Blood Urea Nitrogen 19 mg/dL (7-17); Calcium 9.4 mg/dL (8.4-10.2); Carbon Dioxide 29 mmol/L (22-30); Chloride 104 mmol/L (98-107); Cholesterol 219 mg/dL (0-200); Estimated Glomerular Filt Rate > 60; Glucose 92 mg/dL (65-110); HDL Direct 74 mg/dL; Potassium 4.5 mmol/L (3.4-5.0); Sodium 138 mmol/L (137-145); Total Protein 6.8 g/dL (6.3-8.2); Triglycerides 183 mg/dL (<150)
--- OUTSIDE RECORDS SUMMARY | 2025-01-12 12:33 | XMS_ITS | Encounter Summary ---
Author Organization [facility] Address [address] [facility] [place] [address] Care Team Providers Care Tow Bar Driver Name Role Phone Rozina Packer MD Primary Care Provider [phone] Flor Garcia MD Primary Care Provider [phone] Encounter Details Date Type Department Care Team (Late Contact Info) Description 12/10/2022 Lab Requisition [facility] Derm[facility] Lab [address] [facility] [place] [place] [address] Fay Araujo MD [address] [place] [address] [place] [address] Neoplasm of uncertain behavior of [...] PM CDT Legal Sex Female 6:17 AM FUR STRETCHER Gender Identity Female 01/15/2022 12:08 PM CDT Sexual Orientation Not on file documented as of this encounter Plan of Treatment Upcoming Encounters Date Type Department Care Team ([facility] Contact Info) Description 12/17/2025 9:30 AM CDT Appointment [facility] [address] [place] [address] Praveen Atkinson MD [address] [place], [place] [address] 12/17/2025 11:30 AM CDT Appointment [facility] [address] [place] [address] Praveen Atkinson MD [address] [place] [address] documented as of this encounter Procedures Procedure Name Priority Date/Time Associated Diagnosis Comments DERMATOPATHOLOGY Routine 12/10/2022 3:33 AM CDT Neoplasm of uncertain behavior of skin Other specified erythematous conditions documented in this encounter Results * DERMATOPATHOLOGY (12/10/2022 3:33 AM CDT) Case Report Dermatopathology Report Case: [id number] Authorizing Provider: Fay Araujo MD Collected: 12/10/2022 03:33 AM Ordering Location: [facility] Received: 12/11/2022 12:44 PM Pathologist: Nelli Rodriguez MD Specimen: Skin, left jawline 3 4:27 PM CDT DERMATOPATHOLOGY LABORATORY Final Diagnosis Specimen A. SKIN, left jawline: RUPTURED EPIDERMOID CYST (L72.0) 3 4:27 PM CDT DERMATOPATHOLOGY LABORATORY at 1627 CDT Clinical History Cyst 3 4:27 PM CDT DERMATOPATHOLOGY LABORATORY Gross Description Specimen A: Received is one formalin filled container labeled with the patient's name and designated left jawline. The specimen consists of a 8x3x6 mm piece of skin. The specimen is serially sectioned and a outside industrial sales representative section is submitted in cassette [...] characteristic determined by the Dermatopathology Laboratory at [facility], directed by Dr. Kyle Anthony. These tests need not be, and therefore are not, approved by the [place] Food and Drug Administration. The tests are used for clinical purposes. Billing Codes Specimen Charges Stain Charges 73238 1 3 4:27 PM CDT DERMATOPATHOLOGY LABORATORY Embedded Images 3 4:27 PM CDT DERMATOPATHOLOGY LABORATORY Pathology/Cytolo gy TISSUE SPECIMEN FROM SKIN / Unknown 12/10/2022 3:33 AM CDT 12/11/2022 12:44 PM CDT us Fay Araujo MD LAB - PATHOLOGY/CYTOLOGY ORDERAB LES Final Result DERMATOPATHOLOGY LABORATORY [facility] - Department of Dermatology [facility] [address] [place] [address], [address] [phone] documented in this encounter Visit Diagnoses Diagnosis Neoplasm of uncertain behavior of skin Other specified erythematous conditions documented in this encounter Care Teams Tow Bar Driver Relationship Specialty Start Date End Date Rozina Packer MD [facility] [place] [address] PCP - General Family Medicine 09/28/19 09/20/23 Flor Garcia MD [address] [place] [address] PCP - General Family Medicine 09/21/23 documented as of this encounter
--- OUTSIDE RECORDS SUMMARY | 2025-01-12 12:33 | XMS_ITS | Patient Health Record ---
Author Organization [facility] Address [address] [facility] [address] [place] [address] Support Name Relationship Address Phone Shameka Kelsey Guarantor Unknown [phone] Allergies No Known Allergies Reason For Referral No Information Problems Problem Type SNOMED Code ICD Code Onset Dates Problem Status W/U Status Risk Notes Problem Actinic keratosis (974552) Actinic keratosis (L57.0) Active confirmed Problem Seborrheic keratosis (63515972) Other seborrheic keratosis (L82.1) Active confirmed Problem History of malignant melanoma of the skin (161529794968) Personal history of malignant melanoma of skin (Z85.820) Active confirmed Plan Of Treatment No Information Insurance Providers Payer Name Payer Address Payer Phone Subscriber Number Group Number Insured Name Patient Relationship to Insured Coverage Start Date Coverage End Date DO NOT USE - [employer] [address] [address] [place], [place] [id number] Shameka Kelsey Self - patient is the insured 7
--- OUTSIDE RECORDS SUMMARY | 2025-01-12 12:33 | XMS_ITS ---
Author Organization [facility] Address [address] [place] [address] Care Team Providers Care Lbd Teacher Name Role Phone Flor Garcia MD Primary Care Provider [phone] Active Problems Problem Noted Date Diagnosed Date Malignant melanoma of right upper extremity including shoulder 09/28/2019 Overview (09/28/2019): Surgical removed at [facility] U Meningioma, recurrent of brain 01/29/2015 Current Treatment and Therapy Plans No current plan information found. Past Treatment and Therapy Plans No past plan information found. Radiation Treatments * Course [id number] 05/31/2023 - 06/09/2023 Treatment Period Energy Fraction Dose Fractions Total Dose Plans Planned #[email or web address] 05/31/2023 - 06/09/2023 5 / 5 3,000 cGy Reference Points Delivered PTVbed 05/31/2023 - 06/09/2023 3,000 cGy
--- OUTSIDE RECORDS SUMMARY | 2025-01-12 12:33 | XMS_ITS | Encounter Summary ---
Author Organization [facility] Address [address] [place] [address] Care Team Providers Care Dispatch Clerk Name Role Phone Rozina Packer MD Primary Care Provider [phone] Michael Rivera MD Unavailable [phone] Unruly Evans MD Unavailable [phone] Flor Garcia MD Primary Care Provider [phone] Encounter Details Date Type Department Care Team (Late st Contact Info) Description 08/15/2020 Telephone [facility] [address] [place] [address] Nery Scott, [place] Social History Tobacco Use Types Packs/Day Years Used Date Smoking Tobacco: Never Smokeless Tobacco: Never Alcohol Use Standard Drinks/Week Comments Yes 0 (1 standard drink = 0.6 oz pur e alcohol) 3-4 drinks/month Comments No Sex and Gender Information Value Date Recorded Sex Assigned at Not on file Legal Sex Female 6:10 AM FARM PRODUCTS SHIPPER Gender Identity Not on file Sexual Orientation Not on file Occupation Industry Job Start Date Job End Date TEACHER Not on file Not on file Not on file documented as of this encounter Plan of Treatment Not on file documented as of this encounter Visit Diagnoses Not on filedocumented in this encounter Care Teams Dispatch Clerk Relationship Specialty Start Date End Date Rozina Packer MD [address] [place] [address] [place] [address] PCP - General 04/30/17 05/21/24 Flor Garcia MD [address] [place] [address] [place] [address] PCP - General Family Medicine 05/22/24 Michael Rivera MD [address] [place] [address] [place] [address] Surgeon Orthopedic Surgery 07/26/19 Unruly Evans MD [address] [place] [address] [place] [address] Spanish Professor Dermatology 07/26/19 documented as of this encounter
--- OUTSIDE RECORDS SUMMARY | 2025-01-12 12:33 | XMS_ITS | Clinical Summary ---
Author Organization [facility] Address [address] [place] [address] Care Team Providers Care Safety Relief Valve Technician Name Role Phone Michael Rivera MD Unavailable [phone] Unruly Evans MD Unavailable [phone] Flor Garcia MD Primary Care Provider [phone] Allergies No known active allergies Medications estradioL (ESTRACE) 1 mg tablet estradiol 1 mg tablet TAKE 1 TABLET BY MOUTH ONCE DAILY Active ALPRAZolam (NIRAVAM) 0.25 mg disintegrating tablet Take 0.25 mg by mouth as needed Active azelastine 205.5 mcg (0.15 %) spray,non-aerosol azelastine 205.5 mcg (0.15 %) nasal spray Active diclofenac sodium (VOLTAREN) 1 % gel diclofenac 1 % topical gel Active aspirin 81 mg enteric coated tablet Active ezetimibe (ZETIA) 10 mg tablet Take 1 tablet (10 mg total) by mouth daily Active cholecalciferol (VITAMIN D-3) 2000 unit tablet Active cyanocobalamin (Vitamin B-12) 1,000 mcg tabletIndications: Prevention of Vitamin B12 Deficiency Take 1 tablet (1,000 mcg total) by mouth daily Active omega-3 fatty acids-fish oil 300-1,000 mg capsule Take 2 capsules (2 g total) by mouth daily Active Active Problems Problem Noted Date Diagnosed Date Peripheral vascular disease 09/08/2024 Assessment & Plan (09/08/2024 11:46 AM CDT): No symptoms of claudication or rest pain or ischemic ulcerations. Left ASHLEY is normal, right ASHLEY shows falsely elevated index report from [facility] from 2023. We will update the arterial Doppler on follow-up in the next couple of weeks. 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 Overview (06/29/2019): Added automatically from request for surgery [id number] Encounters Date Type Department Care Team Description 11/29/2024 11:15 AM CDT Office Visit [facility] at [address] [place] [address] Angela Gotti PA Peripheral vascular disease (Primary Dx) from Last 3 Months Surgical History Surgery Date Site/Laterality Comments CRANIOTOMY [...] on file Legal Sex Female 6:10 AM COIN COUNTER AND WRAPPER Gender Identity Not on file Sexual Orientation Not on file Occupation Industry Job Start Date Job End Date TEACHER Not on file Not on file Not on file Obstetrics History Para Term AB IAB SAB Ectopic Multiple Livin g Live Births 2 2 2 Date Outcome GA Total Labor Labor/2nd/3rd Weight Sex Type Anes PTL Clarissa A1 A5 Name Clin Term Term Last Filed Vital Signs Vital Sign Reading Time Taken Comments Blood Pressure 103/71 11/29/2024 11:14 AM CDT Pulse 89 11/29/2024 11:14 AM CDT Temperature 36.7 C (98.1 F) 08/23/2020 9:35 AM CDT Respiratory Rate 23 08/23/2020 9:05 AM CDT Oxygen Saturation 97% 11/29/2024 11:14 AM CDT Inhaled Oxygen Concentration - - Weight 65.8 kg (145 lb) 11/29/2024 11:14 AM CDT Height 162.6 cm (5' 4) 11/29/2024 11:14 AM CDT Body Mass Index 24.89 11/29/2024 11:14 AM CDT Plan of Treatment Health Maintenance Due Date Last Done Comments Colon Cancer Screening-Colonoscopy 1950 Depression Screening 1950 Hepatitis C Screening 1950 Hepatitis B Screening 1968 Well Visit 65+ 11/24/2015 Zoster Vaccine (3 of 3) 08/23/2018 06/28/2018, 03/29 Pneumococcal vaccine 65+ (2 of 2 - PCV20 or PCV21) 01/14/2021 01/15/2020, 02/22/2018 Fall Risk Assessment 01/08/2022 01/08/2021 Osteoporosis Screening-Bone Density Scan 04/03/2024 04/03/2022 Covid-19 Vaccine (4 - 2024-2 6 season) 2024 01/12/2021, 05/25/2020, 05/03/2020 Influenza Vaccine (#1) 2024 9, 12/25/2017, 01/09/2017, Additional history exists Breast Cancer Screening-Mammogram 08/01/2025 08/01/2024, 05/25/2023, 03/13/2022, Additional history exists DTaP/Tdap/Td Vaccine (3 - Td or Tdap) 06/16/2028 06/16/2018, 04/27/2017 Procedures Procedure Name Priority Date/Time Associated Diagnosis Comments SCREENING MAMMOGRAM BILATERAL W MIGUELANGEL Schedule Routine, Read Routine (OP Routine) 08/01/2024 12:40 PM CDT Screening mammogram, encounter for from Last 3 Months or Most Recently Relevant to Health Maintenance Results * Screening Mammogram Bilateral W Miguelangel (08/01/2024 12:40 PM CDT) Anatomical Region Laterality Modality Breast Bilateral Mammography Impressions 08/03/2024 7:06 AM CDT Bilateral No evidence of malignancy in either breast. OVERALL BI-RADS FINAL ASSESSMENT: 2 - Benign RECOMMENDATION: Recommend bilateral annual screening mammography. Narrative 08/03/2024 7:06 AM CDT EXAMINATION: Screening Mammogram Bilateral W Miguelangel: 08/01/2024 COMPARISON: Relevant prior studies available at the time of interpretation were reviewed. TECHNIQUE: Mammography was performed with 2D and digital breast tomosynthesis (DBT) images. CAD was utilized. BREAST PARENCHYMAL COMPOSITION: The breasts are heterogeneously dense, which may obscure small masses. FINDINGS: Bilateral There is no suspicious mass, calcification, or architectural distortion in either breast. us Self Screening Mammogram IMG MAMMO PROCEDURES Fi nal Result from Last 3 Months or Most Recently Relevant to Health Maintenance Insurance [facility] [place] [address] T MEDICARE T MEDICARE Advance Directives For more information, please contact: [phone] * Full Code (Latest Code Status on File) Date Activated Date Inactivated Comments 08/23/2020 9:09 AM 08/23/2020 1:55 PM Care Teams Safety Relief Valve Technician Relationship Specialty Start Date End Date Flor Garcia MD PCP - General Family Medicine 05/22/24 Michael Rivera MD Surgeon Orthopedic Surgery 07/26/19 Unruly Evans MD Storage Management Architect Dermatology 07/26/19
--- OUTSIDE RECORDS SUMMARY | 2025-01-12 12:33 | XMS_ITS | Clinical Summary ---
Author Organization [facility] [employer] Address [address] [place] [address] Care Team Providers Care Steam Pressure Chamber Operator Name Role Phone Flor Garcia MD Primary Care Provider [phone] Source Comments [facility] [employer],non-owned Affiliates and Associated Physician Practices is amultiple site organization consisting of ambulatory clinics and hospital sitesin [place], [place], [place] and [place]. This disclosure is being madepursuant to the Care Everywhere program and may not contain all information available regarding this patient. Last updated 17.[facility] [employer] Allergies No known active allergies Medications * Be aware that medications may not be up to date on this document. Alwaysverify current medications with the patient. Vitamin D3, cholecalciferol , 2000 UNITS tablet Take 1 (one) tablet by mouth once daily Active ezetimibe (Zetia) 10 MG tablet Take 1 (one) tablet by mouth once daily Active estradiol (Estrace) 1 MG tablet 4 Active ALPRAZolam (Xanax) 0.25 MG tablet Take 1 (one) tablet by mouth once daily as needed For anxiety. 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 09/28/2019 Overview (09/28/2019): Surgical removed at [facility] Meningioma, recurrent of brain 01/29/2015 Encounters Date Type Department Care Team Description 12/18/2024 9:51 AM CDT - 12/18/2024 11:59 PM CDT Hospital Encounter [facility] [address] [place] [address] Praveen Atkinson MD Discharge Disposition: Home or Self Care 12/18/2024 8:30 AM CDT - 12/18/2024 9:50 AM CDT Hospital Encounter [facility] MRI [address] [place] [address] Praveen Atkinson MD Discharge Disposition: Home or Self Care 12/18/2024 Travel from Last 3 Months Immunizations Immunization Administration Dates Next Due Tarari primary monoval ent 12+ yr 0.3mL Purple [...] PM CDT Legal Sex Female 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 PACKER Gender Identity Female 01/15/2022 12:08 PM CDT Sexual Orientation Not on file Last Filed Vital Signs Vital Sign Reading Time Taken Comments Blood Pressure 118/59 12/18/2024 10:05 AM CDT Pulse 64 12/18/2024 10:05 AM CDT Temperature 36.1 C (97 F) 12/18/2024 10:05 AM CDT Respiratory Rate 18 12/18/2024 10:05 AM CDT Oxygen Saturation 100% 12/18/2024 10:05 AM CDT Inhaled Oxygen Concentration - - Weight 68.3 kg (150 lb 9.6 oz) 12/18/2024 10:05 AM CDT Height 162.6 cm (5' 4) 03/28/2024 12:01 PM MELON PACKER Body Mass Index 25.85 03/28/2024 12:01 PM MELON PACKER Plan of Treatment Upcoming Encounters Date Type Department Care Team (Late st Contact Info) Description 12/17/2025 9:30 AM CDT Appointment [facility] MRI [address] [place] [id number] Praveen Atkinson MD [address] [place] [id number] 12/17/2025 11:30 AM CDT Appointment [facility] [address] [place] [address] Praveen Atkinson MD [address] [place] [address] [id number] Health Maintenance Due Date Last Done Comments [...] 2000 ZOSTER VACCINE (1 of 2) 2000 DEPRESSION SCREENING 03/29/2024 03/28/2024 MEDICARE AWV CALENDAR YEAR 2024 COVID-19 VACCINE ( season) 2024 01/12/2021, 05/25/2020, 05/03/2020 INFLUENZA VACCINE (#1) 2024 01/09/2017 Respiratory Syncytial Virus (RSV) Vaccine Pt: or over 60 yrs (1 - 1-dose 75+ series) 2025 MAMMOGRAM 08/01/2026 08/01/2024, 0508/2024, 05/25/2023, Additional history exists HEPATITIS B VACCINE Aged Out No longe [...] Diagnosis Comments MRI BRAIN WWO CONTRAST Routine 12/18/2024 9:42 AM CDT Meningioma, recurrent of brain (HCC) from Last 3 Months Results * MRI Brain Wwo Contrast (12/18/2024 9:42 AM CDT) Anatomical Region Laterality Modality Head Magnetic Resonan ce 12/18/2024 4:14 PM CDT Impressions 12/20/2024 1:58 PM CDT IMPRESSION: Compared to the prior MRI from 03/28/2024: 1.No evidence of disease progression. 2.Redemonstrated postoperative findings of a right frontal craniotomy and resection of a right frontal meningioma. 3.Interval decreased size of several small extra-axial anterior frontal and anterior right parafalcine meningiomas, possibly related to treatment response. 4.Continued attention on follow-up is recommended. > Dictated by Sadie Becker MD (residential builder). > Interpreting Provider: Sadie Becker MD on 12/20/2024 1:58 PM Narrative 12/20/2024 1:58 PM CDT PROCEDURE: MRI BRAIN WWO CONTRAST, DATE/TIME OF EXAM: 12/18/2024 9:43 AM, LOCATION [facility] INDICATION: D32.0: Meningioma, recurrent of brain (HCC) ADDITIONAL CLINICAL INFORMATION: Ordering Provider Reason For Exam: Meningioma. Technologist Note: None. Additional: None. CONTRAST: GADOBUTROL 1 MMOL/ML IV SSM SO:7 mL COMPARISON: MRI brain dated 03/28/2024, 07/14/2022, 01/13/2022, and 09/30/2021 TECHNIQUE: MRI of the brain was performed prior to and following the uneventful administration of 7 mL intravenous GADAVIST contrast according to a tumor protocol. FINDINGS: Redemonstrated postoperative findings of a right frontal craniotomy for resection of a right frontal meningioma with expected postsurgical changes and hemosiderin deposition along the craniotomy site and underlying encephalomalacia and gliosis in the resection cavity, grossly unchanged. Surrounding FLAIR hyperintensity in the adjacent right frontal lobe extending to the frontal horn of the right lateral ventricle is roughly unchanged. Redemonstrated dural thickening and enhancement along the right anterior frontal convexity. Redemonstration of nodular focus of enhancement in the right parafalcine region measuring approximately 1.5 x 0.5 cm, (series 14, image 108), previously measured approximately the same, (series 23, image 105 on the prior MRI from 03/28/2024), grossly unchanged from prior. Just inferior to this lesion, there is additional lesion along the inferior margin of the frontal falx that measures approximately 0.8 x 0.5 cm, (series 14, image 94), previously measured the same, (series 23, image 92, on the prior MRI from 03/28/2024). Lesion along the anterior frontal convexity abutting the superior sagittal sinus now measures approximately 0.7 cm, (series 14, image 113), previously measured approximately the same, 0.7 cm, (series 23, image 109 on the prior MRI from 03/28/2024). A more superior area of extra-axial enhancement along the right parafalcine region measures approximately measuring approximately 0.8 cm in thickness, (series 14, image 89), previously measured approximately 1.3 cm in thickness, (series 23, image 86 on the prior). Lateral to this, along the right frontal convexity and extra-axial dural based enhancement measures approximately 0.6 cm, (series 14, image 79), previously measured approximately 1.1 cm in thickness, (series 23, image 77 on the prior). Redemonstration of dural thickening and enhancement along the right anterior frontal convexity which appears similar to the prior, without significant change. No acute intracranial hemorrhage. Unchanged small T2 hyperintense focus in the right superior frontal gyrus (series 8, image 22) which demonstrates minimal punctate enhancement and T2 shine through suggestive of an evolving subacute to chronic infarct.. Scattered foci of susceptibility in the right temporal lobe are suggestive of chronic microhemorrhage. No evidence of acute cerebral infarction is seen. There is mild cerebral volume loss with associated ex vacuo ventricular dilatation. No significant midline shift is seen. Periventricular white matter FLAIR hyperintensities likely represent sequelae of chronic small vessel ischemic disease. The corpus callosum and sella appear normal. The posterior fossa, brainstem, and craniocervical junction appear normal. Other than bilateral cataract extractions, the orbits appear normal. Minimal mucosal thickening in the ethmoid air cells and the maxillary sinuses, right more than left. The remaining paranasal sinuses are grossly clear. Small kevin bullosa in the left middle turbinate. Mild hypertrophy of the inferior turbinates. The mastoid air cells are grossly clear. Normal flow voids are demonstrated in the carotid arteries and basilar artery. The calvarium and visualized cervical spine appear normal. Procedure Note Sadie Becker MD - 12/20/2024 PROCEDURE: MRI BRAIN WWO CONTRAST, DATE/TIME OF EXAM: 12/18/2024 9:43AM, LOCATION [facility] INDICATION: D32.0: Meningioma, recurrent of brain (HCC) ADDITIONAL CLINICAL INFORMATION: Ordering Provider Reason For Exam: Meningioma. Technologist Note: None. Additional: None. CONTRAST: GADOBUTROL 1 MMOL/ML IV SSM SO:7 mL COMPARISON: MRI brain dated 03/28/2024, 07/14/2022, 01/13/2022, and 09/30/2021 TECHNIQUE: MRI of the brain was performed prior to and following the uneventful administration of 7 mL intravenous GADAVIST contrastaccording to a tumor protocol. FINDINGS: Redemonstrated postoperative findings of a right frontal craniotomy for resection of a right frontal meningioma with expected postsurgicalchanges and hemosiderin deposition along the craniotomy site and underlying encephalomalacia and gliosis in the resection cavity, grossly unchanged. Surrounding FLAIR hyperintensity in the adjacent right frontal lobe extending to the frontal horn of the right lateral ventricle is roughly unchanged. Redemonstrated dural thickening and enhancement along the right anterior frontal convexity. Redemonstration of nodular focus of enhancement in the right parafalcine region measuring approximately 1.5 x 0.5 cm, (series 14, image 108), previously measured approximately the same, (series 23, image 105 on the prior MRI from 03/28/2024), grossly unchanged from prior. Just inferiorto this lesion, there is additional lesion along the inferior margin of the frontal falx that measures approximately 0.8 x 0.5 cm, (series 14, image 94), previously measured the same, (series 23, image 92, on the priorMRI from 03/28/2024). Lesion along the anterior frontal convexity abutting the superiorsagittal sinus now measures approximately 0.7 cm, (series 14, image 113),previously measured approximately the same, 0.7 cm, (series 23, image 109 on theprior MRI from 03/28/2024). A more superior area of extra-axial enhancementalong the right parafalcine region measures approximately measuringapproximately 0.8 cm in thickness, (series 14, image 89), previously measured approximately 1.3 cm in thickness, (series 23, image 86 on the prior). Lateral to this, along the right frontal convexity and extra-axial dural based enhancement measures approximately 0.6 cm, (series 14, image 79), previously measured approximately 1.1 cm in thickness, (series 23, image77 on the prior). Redemonstration of dural thickening and enhancement along the right anterior frontal convexity which appears similar to the prior, without significant change. No acute intracranial hemorrhage. Unchanged small T2 hyperintense focusin the right superior frontal gyrus (series 8, image 22) which demonstrates minimal punctate enhancement and T2 shine through suggestive of anevolving subacute to chronic infarct.. Scattered foci of susceptibility in theright temporal lobe are suggestive of chronic microhemorrhage. No evidence of acute cerebral infarction is seen. There is mild cerebral volume losswith associated ex vacuo ventricular dilatation. No significant midline shiftis seen. Periventricular white matter FLAIR hyperintensities likelyrepresent sequelae of chronic small vessel ischemic disease. The corpus callosumand sella appear normal. The posterior fossa, brainstem, and craniocervical junction appear normal. Other than bilateral cataract extractions, the orbits appear normal. Minimal mucosal thickening in the ethmoid air cells and the maxillary sinuses, right more than left. The remaining paranasal sinuses aregrossly clear. Small kevin bullosa in the left middle turbinate. Mildhypertrophy of the inferior turbinates. The mastoid air cells are grossly clear.Normal flow voids are demonstrated in the carotid arteries and basilar artery.The calvarium and visualized cervical spine appear normal. IMPRESSION: Compared to the prior MRI from 03/28/2024: 1.No evidence of disease progression. 2.Redemonstrated postoperative findings of a right frontal craniotomyand resection of a right frontal meningioma. 3.Interval decreased size of several small extra-axial anterior frontaland anterior right parafalcine meningiomas, possibly related to treatment response. 4.Continued attention on follow-up is recommended. > Dictated by Sadie Becker MD (residential builder). > Interpreting Provider: Sadie Becker MD on 12/20/2024 1:58 PM Praveen Atkinson MD MR ORDERABLES Final Resul t from Last 3 [place] [address] [employer] MEDICARE ADV [facility] MANAGED MEDICARE ADV [address] MANAGED MEDICARE ADV [address] MANAGED MEDICARE ADV Member Subscriber Plan / Payer (Ef fective 2016-Present) Name:Ruben Kelsey Relation to Subscriber:Self Name:RUBEN KELSEY Payer ID:[id number] (NAIC) Type:Medicare-Managed Care Address: [address] MANAGED MEDICARE ADV [employer] AETNA [facility] MANAGED MEDICARE ADV [employer] Member Subscriber Plan / Payer (Ef fective 2022-) Name:DaniloRuben white Annabel Relation to Subscriber:Self Name:RUBEN KELSEY Annabel Payer ID:[id number] (NAIC) Type:Medicare-Managed Care Address: [address] MANAGED MEDICARE ADV [employer] Member Subscriber Plan / Payer (Ef fective 2022-) Name:DaniloirtulyndaRuben Annabel Relation to Subscriber:Self Name:HERBLyndaRUBEN Annabel Payer ID:[id number] ([facility]) Type:Medicare-Managed Care Address: [address] MANAGED MEDICARE ADV AETNA [facility] MANAGED MEDICARE ADV AETNA [facility] MANAGED MEDICARE ADV AETNA [facility] MANAGED MEDICARE ADV AETNA [facility] MANAGED MEDICARE ADV AETNA [facility] MANAGED MEDICARE ADV Care Teams Steam Pressure Chamber Operator Relationship Specialty Start Date End Date Flor Garcia MD [address] [place] [address] PCP - General Family Medicine 09/21/23
[2025-01-12 12:46] LABS: Free T4 Free Thyroxine 0.90 ng/dL (0.78-2.19)
[2025-01-12 13:02] LABS: Thyroid Stimulating Hormone 1.720 uIU/mL (0.465-4.680)
== END 2025-01-12 11:47 | disposition home or self-care (01) ==
PROVIDERS: PCP Family Medicine Adolescent Medicine; Visit Provider Student in an Organized Health Care Education/Training Program
DX: Z13.1 Encounter for screening for diabetes mellitus (principal); E78.5 Hyperlipidemia, unspecified; I73.9 Peripheral vascular disease, unspecified; R53.83 Other fatigue
CPT/HCPCS: 36415; 80053; 80061; 84439; 84443; 85025